=== PATIENT | female | born 1975 | race Caucasian/White ===

== ENCOUNTER 2020-08-18 14:40 | Emergency (ER) | payer OTHER, SELFPAY ==
--- NOTE | 2020-08-18 15:19 | XR_ITS ---
EXAMINATION: XR CHEST CLINICAL INFORMATION: Shortness of breath and cough. COMPARISON: Chest radiograph dated 09/04/2010. TECHNIQUE: Frontal view of the chest was obtained. FINDINGS: No significant abnormality is noted involving the heart, lungs, mediastinum, bony thorax or soft tissues. There is an old, healed posterolateral left seventh rib fracture. IMPRESSION: Unremarkable examination.
[2020-08-18 15:36] VITALS: BP 138/77; PULSE 90; RESP 20; TEMP 36.8; O2SAT 96; BMI 30.4
--- NOTE | 2020-08-18 15:37 | ECG_ITS ---
Test Reason : BACK PAIN Blood Pressure : / mmHG Vent. Rate : 097 BPM Atrial Rate : 097 BPM P-R Int : 168 ms QRS Dur : 074 ms QT Int : 346 ms P-R-T Axes : 049 047 040 degrees QTc Int : 439 ms Normal sinus rhythm Normal ECG When compared with ECG of 04-SEP-2010 18:34, No significant change was found Referred By: Mary Cunningham Electronically Signed By:MELIZA JEFFERS
--- NOTE | 2020-08-18 15:39 | ED.SOB ---
HPI - SOB/Dyspnea General Chief Complaint: Back Pain/Injury <JINA Beltran Last Filed: 08/18/20 18:22> Stated Complaint: COUGH <JINA Beltran Last Filed: 08/18/20 18:22> Time Seen by Provider: 08/18/20 15:18 <JINA Beltran Last Filed: 08/18/20 18:22> Source: patient <JINA Beltran Last Filed: 08/18/20 18:22> Mode of arrival: ambulatory <JINA Beltran Last Filed: 08/18/20 18:22> Limitations: no limitations <JINA Beltran Last Filed: 08/18/20 18:22> History of Present Illness HPI Narrative: 45 y/o female presenting with chest pain, cough, chronic abdominal pain. Recently diagnosed with PNA about 5 weeks ago, completed antibiotics and now has SOB and cough again. She also reports central chest pain that started Friday. It is associated with SOB, anxiety and diaphoresis. It has been constant but waxes and wanes. <JINA Beltran Last Filed: 08/18/20 18:22> Related Data Home Medications: Previous Rx's Medication Instructions Recorded lidocaine [Lidoderm] 1 patch TOPICAL DAILY #1 ea 08/18/20 prednisone 40 mg PO DAILY #10 tab 08/18/20 <JIAN Beltran Last Filed: 08/18/20 18:22> Allergies/Adverse Reactions: Allergies Allergy/AdvReac Type Severity Reaction Status Date / Time ibuprofen [From Motrin] Allergy Unknown HIVES Verified 08/18/20 16:20 tramadol [Tramadol] AdvReac Unknown NAUSEA Verified 08/18/20 16:20 <JINA Beltran Last Filed: 08/18/20 18:22> Review of Systems Review of Systems: Constitutional: No Fever, No Chills ENT/Mouth: No sore throat, No Rhinorrhea, No Swallowing Difficulty Eyes: No Eye Pain, No Swelling, No Redness Cardiovascular: positive Chest Pain & SOB, No Orthopnea, negative Edema Respiratory: No Cough, No Sputum, No Wheezing, positive dyspnea Gastrointestinal: No Nausea, No Vomiting, No Diarrhea, No abdominal Pain, No Hematochezia, No Melena Genitourinary: No Dysuria, No Urinary Frequency, No Hematuria Musculoskeletal: No joint pain, No Myalgias Skin: No Skin Lesions, No rash Neuro: No Weakness, No Numbness, No Dizziness, No Headache Psych: No Anxiety/Panic, No Depression Heme/Lymph: No Bruising, No Lymphadenopathy Endocrine: No Polyuria, No Polydipsia All other 10 point ROS are negative. <JINA Beltran - Last Filed: 08/18/20 18:22> [facility] Past Medical History Attestation statement: The following information was validated with the patient. <JINA Beltran - Last Filed: 08/18/20 18:22> Medical History: Medical History No known health problems <JINA Beltran - Last Filed: 08/18/20 18:22> Social History Social History: Social History Alcohol intake: never Smoking Status: Current every day smoker Smoked in Last 30 Days: Yes Use of substances other than those prescribed or required for medical reasons: No Advance Directives: No Advance Directives Information Provided: No <JINA Beltran - Last Filed: 08/18/20 18:22> Physical Exam Vital Signs and I&O and Narrative: Vital Signs and I&O: Vital Signs Temp 98.2 F 08/18/20 16:00 Pulse 92 08/18/20 18:22 Resp 18 08/18/20 18:22 BP 121/55 L 08/18/20 18:22 Pulse Ox 96 08/18/20 18:22 Intake & Output 08/18/20 08/18/20 08/19/20 06:59 18:59 06:59 Intake Total 1000 / 1000 Balance 1000 / 1000 Weight 85.729 kg Intake: Intake, IV Amoun t 1000 / 1000 0.9 % Sodium C hloride 1,000 ml 1000 / 1000 @ 999 mls/hr I VCONT .Q1H1M [facility] Rx#:[id number] Body Mass Index 30.4 <JINA Beltran - Last Filed: 08/18/20 18:22> Vital Signs and I&O: Vital Signs Temp 98.2 F 08/18/20 16:00 Pulse 92 08/18/20 18:22 Resp 18 08/18/20 18:22 BP 121/55 L 08/18/20 18:22 Pulse Ox 96 08/18/20 18:22 Intake & Output 08/18/20 08/18/20 08/19/20 06:59 18:59 06:59 Intake Total 1000 / 1000 Balance 1000 / 1000 Weight 85.729 kg Intake: Intake, IV Amoun t 1000 / 1000 0.9 % Sodium C hloride 1,000 ml 1000 / 1000 @ 999 mls/hr I VCONT .Q1H1M [facility] Rx#:[id number] Body Mass Index 30.4 <Emil Matthews DO - Last Filed: 08/19/20 02:00> Appearance: Alert. Oriented X3. No acute distress. Eyes: Pupils equal, round and reactive to light. ENT: Pharynx normal. Neck: Normal inspection. Neck supple. CVS: Normal heart rate and rhythm. Pulses normal. Respiratory: No respiratory distress. Coarse breath sounds throughout. Anterior chest wall tenderness Abdomen: Soft and nontender. Skin: Skin warm and dry. Normal skin color. Normal skin turgor. Extremities: No lower extremity edema. No lower extremity edema. Negative Roberta's sign Neuro: Oriented X 3. No motor deficit. No sensory deficit. <JINA Beltran - Last Filed: 08/18/20 18:22> Course Course Hospital Course: 45 y/o active smoker with recent PNA presents with multiple complaints - SOB, cough, chest pain, abd pain. Will r/o PNA, PE. Neb ordered for now. <JINA Beltran - Last Filed: 08/18/20 18:22> Reevaluation(s) Reevaluation #1: EKG normal, troponin negative and DDimer negative. <JINA Beltran - Last Filed: 08/18/20 18:22> Time: 17:17 <JINA Beltran - Last Filed: 08/18/20 18:22> Reevaluation #2: No noted hypoxia or coughing fits while here. She continues to report mild rib pain, likelt costochondritis due to persistent coughing. Will treat with prednisone. stable for d/c. <JINA Beltran - Last Filed: 08/18/20 18:22> Time: 18:21 <JINA Beltran - Last Filed: 08/18/20 18:22> MDM - SOB/Dyspnea Differential Diagnosis Differential diagnosis: Likely acute exacerbation of chronic obstructive airways disease, congestive heart failure, pneumonia, asthma with exacerbation, pulmonary embolism, pleural effusion, sleep apnea and anemia <JINA Beltran - Last Filed: 08/18/20 18:22> Medical Records Attestation: I reviewed the patient's medical records. <JINA Beltran - Last Filed: 08/18/20 18:22> Lab Data Result diagrams: : 08/18/20 16:10 08/18/20 16:10 <JINA Beltran - Last Filed: 08/18/20 18:22> Labs: Lab Results 08/18/20 08/18/20 08/18/20 Range/Units 16:10 16:10 16:10 WBC 11.8 H (4.8-10.8) X10*3/uL RBC 3.49 L (4.20-5.50) X10*6/uL Hgb 9.4 L (12.0-16.0) g/dl Hct 30.7 L (37-47) % MCV 88.0 (80-98) fL MCH 26.9 L (27.0-33.0) pg MCHC 30.6 L (31.0-35.0) g/dl RDW 17.1 H (11.0-16.0) % Plt Count 293 (160-400) X10*3/uL MPV 9.9 (9.4-12.3) fL Immature Gran % (Auto) 0.3 (0.0-0.4) % Neut % (Auto) 64.5 (45-73) % Lymph % (Auto) 23.7 (20-40) % [place] % (Auto) 8.5 (2-11) % Eos % (Auto) 2.7 (0-4) % Baso % (Auto) 0.3 (0-2) % Neut # (Auto) 7.6 (2.0-8.3) X10*3/uL Lymph # (Auto) 2.8 (1.2-4.9) X10*3/uL [place] # (Auto) 1.0 (0.1-1.2) X10*3/uL Eos # (Auto) 0.3 (0.0-0.4) X10*3/uL Baso # (Auto) 0.0 (0.0-0.2) X10*3/uL Abs Immat Gran (auto) 0.04 H (0.00-0.03) X10*3/uL Absolute Nucleated RBC 0.000 (0.0-0.012) X10*3/uL Nucleated RBC % (auto) 0.0 (0.0-0.2) /100WBC D-Dimer NG/ML Sodium 142 (135-145) mmol/L Potassium 5.0 (3.3-5.1) mmol/l Chloride 110 H (96-108) mmol/L Carbon Dioxide 23 (22-29) mmol/L Anion Gap 14 (12-20) BUN 17 H (9-16) mg/dL Creatinine 0.70 (0.5-1.4) mg/dL Estim Creat Clear Calc 114.2 Estimated GFR > 60 Random Glucose 91 (60-115) mg/dL Calcium 8.2 L (8.4-10.2) mg/dL Total Bilirubin (0.0-1.0) mg/dL Direct Bilirubin (0.0-0.5) mg/dL AST (5-31) U/L ALT (0-31) U/L Alkaline Phosphatase (39-117) U/L Troponin I High Sens < 3.5 (<3.5-17.0) ng/L B-Natriuretic Peptide 71 (<100) pg/mL Total Protein (6.5-8.0) g/dL Albumin (3.5-5.0) g/dL Lipase (8-78) U/L Procalcitonin ng/mL 08/18/20 08/18/20 08/18/20 Range/Units 16:10 16:10 16:41 WBC (4.8-10.8) X10*3/uL RBC (4.20-5.50) X10*6/uL Hgb (12.0-16.0) g/dl Hct (37-47) % MCV (80-98) fL MCH (27.0-33.0) pg MCHC (31.0-35.0) g/dl RDW (11.0-16.0) % Plt Count (160-400) X10*3/uL MPV (9.4-12.3) fL Immature Gran % (Auto) (0.0-0.4) % Neut % (Auto) (45-73) % Lymph % (Auto) (20-40) % [place] % (Auto) (2-11) % Eos % (Auto) (0-4) % Baso % (Auto) (0-2) % Neut # (Auto) (2.0-8.3) X10*3/uL Lymph # (Auto) (1.2-4.9) X10*3/uL [place] # (Auto) (0.1-1.2) X10*3/uL Eos # (Auto) (0.0-0.4) X10*3/uL Baso # (Auto) (0.0-0.2) X10*3/uL Abs Immat Gran (auto) (0.00-0.03) X10*3/uL Absolute Nucleated RBC (0.0-0.012) X10*3/uL Nucleated RBC % (auto) (0.0-0.2) /100WBC D-Dimer 202 NG/ML Sodium (135-145) mmol/L Potassium (3.3-5.1) mmol/l Chloride (96-108) mmol/L Carbon Dioxide (22-29) mmol/L Anion Gap (12-20) BUN (9-16) mg/dL Creatinine (0.5-1.4) mg/dL Estim Creat Clear Calc Estimated GFR Random Glucose (60-115) mg/dL Calcium (8.4-10.2) mg/dL Total Bilirubin < 0.2 (0.0-1.0) mg/dL Direct Bilirubin < 0.2 (0.0-0.5) mg/dL AST 18 (5-31) U/L ALT 9 (0-31) U/L Alkaline Phosphatase 50 (39-117) U/L Troponin I High Sens (<3.5-17.0) ng/L B-Natriuretic Peptide (<100) pg/mL Total Protein 6.6 (6.5-8.0) g/dL Albumin 3.8 (3.5-5.0) g/dL Lipase 18 (8-78) U/L Procalcitonin 0.16 ng/mL <JINA Beltran - Last Filed: 08/18/20 18:22> Lab Results 08/18/20 08/18/20 08/18/20 Range/Units 16:10 16:10 16:10 WBC 11.8 H (4.8-10.8) X10*3/uL RBC 3.49 L (4.20-5.50) X10*6/uL Hgb 9.4 L (12.0-16.0) g/dl Hct 30.7 L (37-47) % MCV 88.0 (80-98) fL MCH 26.9 L (27.0-33.0) pg MCHC 30.6 L (31.0-35.0) g/dl RDW 17.1 H (11.0-16.0) % Plt Count 293 (160-400) X10*3/uL MPV 9.9 (9.4-12.3) fL Immature Gran % (Auto) 0.3 (0.0-0.4) % Neut % (Auto) 64.5 (45-73) % Lymph % (Auto) 23.7 (20-40) % [place] % (Auto) 8.5 (2-11) % Eos % (Auto) 2.7 (0-4) % Baso % (Auto) 0.3 (0-2) % Neut # (Auto) 7.6 (2.0-8.3) X10*3/uL Lymph # (Auto) 2.8 (1.2-4.9) X10*3/uL [place] # (Auto) 1.0 (0.1-1.2) X10*3/uL Eos # (Auto) 0.3 (0.0-0.4) X10*3/uL Baso # (Auto) 0.0 (0.0-0.2) X10*3/uL Abs Immat Gran (auto) 0.04 H (0.00-0.03) X10*3/uL Absolute Nucleated RBC 0.000 (0.0-0.012) X10*3/uL Nucleated RBC % (auto) 0.0 (0.0-0.2) /100WBC D-Dimer NG/ML Sodium 142 (135-145) mmol/L Potassium 5.0 (3.3-5.1) mmol/l Chloride 110 H (96-108) mmol/L Carbon Dioxide 23 (22-29) mmol/L Anion Gap 14 (12-20) BUN 17 H (9-16) mg/dL Creatinine 0.70 (0.5-1.4) mg/dL Estim Creat Clear Calc 114.2 Estimated GFR > 60 Random Glucose 91 (60-115) mg/dL Calcium 8.2 L (8.4-10.2) mg/dL Total Bilirubin (0.0-1.0) mg/dL Direct Bilirubin (0.0-0.5) mg/dL AST (5-31) U/L ALT (0-31) U/L Alkaline Phosphatase (39-117) U/L Troponin I High Sens < 3.5 (<3.5-17.0) ng/L B-Natriuretic Peptide 71 (<100) pg/mL Total Protein (6.5-8.0) g/dL Albumin (3.5-5.0) g/dL Lipase (8-78) U/L Procalcitonin ng/mL 08/18/20 08/18/20 08/18/20 Range/Units 16:10 16:10 16:41 WBC (4.8-10.8) X10*3/uL RBC (4.20-5.50) X10*6/uL Hgb (12.0-16.0) g/dl Hct (37-47) % MCV (80-98) fL MCH (27.0-33.0) pg MCHC (31.0-35.0) g/dl RDW (11.0-16.0) % Plt Count (160-400) X10*3/uL MPV (9.4-12.3) fL Immature Gran % (Auto) (0.0-0.4) % Neut % (Auto) (45-73) % Lymph % (Auto) (20-40) % [place] % (Auto) (2-11) % Eos % (Auto) (0-4) % Baso % (Auto) (0-2) % Neut # (Auto) (2.0-8.3) X10*3/uL Lymph # (Auto) (1.2-4.9) X10*3/uL [place] # (Auto) (0.1-1.2) X10*3/uL Eos # (Auto) (0.0-0.4) X10*3/uL Baso # (Auto) (0.0-0.2) X10*3/uL Abs Immat Gran (auto) (0.00-0.03) X10*3/uL Absolute Nucleated RBC (0.0-0.012) X10*3/uL Nucleated RBC % (auto) (0.0-0.2) /100WBC D-Dimer 202 NG/ML Sodium (135-145) mmol/L Potassium (3.3-5.1) mmol/l Chloride (96-108) mmol/L Carbon Dioxide (22-29) mmol/L Anion Gap (12-20) BUN (9-16) mg/dL Creatinine (0.5-1.4) mg/dL Estim Creat Clear Calc Estimated GFR Random Glucose (60-115) mg/dL Calcium (8.4-10.2) mg/dL Total Bilirubin < 0.2 (0.0-1.0) mg/dL Direct Bilirubin < 0.2 (0.0-0.5) mg/dL AST 18 (5-31) U/L ALT 9 (0-31) U/L Alkaline Phosphatase 50 (39-117) U/L Troponin I High Sens (<3.5-17.0) ng/L B-Natriuretic Peptide (<100) pg/mL Total Protein 6.6 (6.5-8.0) g/dL Albumin 3.8 (3.5-5.0) g/dL Lipase 18 (8-78) U/L Procalcitonin 0.16 ng/mL <Emil Matthews DO - Last Filed: 08/19/20 02:00> ECG Data Attestation: I personally reviewed and interpreted this ECG as follows: <JINA Beltran - Last Filed: 08/18/20 18:22> ECG interpretation date: 08/18/20 <JINA Beltran - Last Filed: 08/18/20 18:22> Interpretation: normal sinus rhythm, HR 97, normal QTc, normal axis <JINA Beltran - Last Filed: 08/18/20 18:22> Discharge Plan Discharge Clinical Impression: Acute costochondritis <JINA Beltran - Last Filed: 08/18/20 18:22> Patient Disposition: Home, Self-Care <JINA Beltran - Last Filed: 08/18/20 18:22> Instructions: Costochondritis (ED) <JINA Beltran - Last Filed: 08/18/20 18:22> Additional Instructions: Follow up with your Primary Care Doctor. If your symptoms worsen, come back to the ER for further evaluation. <JINA Beltran - Last Filed: 08/18/20 18:22> Prescriptions: New prednisone 20 mg tablet 40 mg PO DAILY Qty: 10 RF: 0 lidocaine [Lidoderm] 5 % adhesive patch,medicated 1 patch topical DAILY Qty: 1 RF: 0 <JINA Beltran - Last Filed: 08/18/20 18:22> Interventions: ED Discharge Assessment Last Done: 08/18/20 18:31 <JINA Beltran - Last Filed: 08/18/20 18:22> Discharge Date/Time: 08/18/20 18:36 <JINA Beltran - Last Filed: 08/18/20 18:22>
[2020-08-18 16:00] VITALS: BP 123/64; PULSE 92; RESP 16; TEMP 36.8
[2020-08-18] MEDS: Albuterol/Iprat 2.5/0.5MG 3 ML AMPUL.NEB INHALE (16:04)
[2020-08-18] MEDS: 0.9 % Sodium Chloride 1,000 ML 999 ML IVCONT (16:13)
[2020-08-18 16:17] LABS: MANUAL DIFF FLAG NO
[2020-08-18 16:19] LABS: Basophils Percent Auto 0.3 % (0-2); Eosinophils Absolute Auto 0.3 X10*3/uL (0.0-0.4); Eosinophils Percent Auto 2.7 % (0-4); Hematocrit 30.7 % (37-47); Hemoglobin 9.4 g/dl (12.0-16.0); Imm Gran Abs Auto 0.04 X10*3/uL (0.00-0.03); Imm Gran Pct Auto 0.3 % (0.0-0.4); Lymphocytes Absolute Auto 2.8 X10*3/uL (1.2-4.9); Lymphocytes Percent Auto 23.7 % (20-40); Mean Corpuscular HGB Conc 30.6 g/dl (31.0-35.0); Mean Corpuscular Hemoglobin 26.9 pg (27.0-33.0); Mean Platelet Volume 9.9 fL (9.4-12.3); Monocytes Percent Auto 8.5 % (2-11); Neutrophils Absolute Auto 7.6 X10*3/uL (2.0-8.3); Neutrophils Percent Auto 64.5 % (45-73); Platelet Count 293 X10*3/uL (160-400); Red Blood Count 3.49 X10*6/uL (4.20-5.50); Red Cell Distribution Width 17.1 % (11.0-16.0); White Blood Count 11.8 X10*3/uL (4.8-10.8)
[2020-08-18 16:26] LABS: D Dimer 202 NG/ML
[2020-08-18 16:52] LABS: Anion Gap 14 (12-20); Blood Urea Nitrogen 17 mg/dL (9-16); Calcium 8.2 mg/dL (8.4-10.2); Carbon Dioxide 23 mmol/L (22-29); Chloride 110 mmol/L (96-108); Creatinine Clr Calc Pharmacy 114.2; Estimated Glomerular Filt Rate > 60; Glucose Random 91 mg/dL (60-115); Sodium 142 mmol/L (135-145)
[2020-08-18 16:57] LABS: B Type Natriuretic Peptide 71 pg/mL (<100); Troponin-I High Sensitivity < 3.5 ng/L (<3.5-17.0)
[2020-08-18 17:09] LABS: Alanine Aminotransferase 9 U/L (0-31); Albumin Level 3.8 g/dL (3.5-5.0); Alkaline Phosphatase 50 U/L (39-117); Aspartate Amino Transferase 18 U/L (5-31); Bilirubin Direct < 0.2 mg/dL (0.0-0.5); Bilirubin Total < 0.2 mg/dL (0.0-1.0); Lipase 18 U/L (8-78); Total Protein 6.6 g/dL (6.5-8.0)
[2020-08-18 17:11] LABS: Procalcitonin 0.16 ng/mL
[2020-08-18 18:22] VITALS: BP 121/55; PULSE 92; RESP 18; O2SAT 96
[2020-08-18 18:25] VITALS: PULSE 96
== END 2020-08-18 18:36 | disposition home or self-care (01) ==
PROVIDERS: Physician Assistant; Emergency Provider Emergency Medicine; PCP Internal Medicine
DX: M94.0 Chondrocostal junction syndrome [Tietze] (principal); R05 Cough; F17.200 Nicotine dependence, unspecified, uncomplicated
CPT/HCPCS: 36415; 71045; 80048; 80076; 83690; 83880; 84145; 84484; 85025; 85379; 87635; 93005; 93010; 96360; 99284; 99285

== ENCOUNTER 2020-09-24 17:08 | Emergency (ER) | payer OTHER, SELFPAY ==
[2020-09-24 18:29] VITALS: BP 146/87; PULSE 89; RESP 18; TEMP 36.8; O2SAT 98; BMI 34.9
--- NOTE | 2020-09-24 18:45 | CT_ITS ---
EXAMINATION: CT ABDOMEN AND PELVIS WITH CONTRAST CLINICAL INFORMATION: Diffuse abdominal pain, worse in the epigastrium and left lower quadrant. COMPARISON: None TECHNIQUE: Multidetector volumetric images were obtained from the superior aspect of the liver through the pubic symphysis following administration 85 mL of Omnipaque 350 intravenous contrast. Sagittal and coronal reformatted images were obtained on the technologist's workstation. Oral Contrast: No. This CT examination was performed using dose optimization techniques as appropriate, variously including the following: *Automated exposure control. *Adjustment of mA and/or kV according to patient size (this includes techniques or standardized protocols for targeted exams where dose is matched to indication/reason for exam; i.e. extremities or head). *Use of iterative reconstruction technique. DLP: 651 mGy-cm FINDINGS: LUNG BASES: Mosaic changes are present in the lung bases with some areas of air-trapping. No pleural effusions are seen. The heart size is normal. LIVER, GALLBLADDER, AND BILIARY TREE: The liver is enlarged measuring 19 cm in greatest length and demonstrates decreased attenuation suspicious for hepatic steatosis. No focal liver mass or bile duct dilatation is seen. Status post cholecystectomy with clips in the gallbladder fossa. PANCREAS: Unremarkable. SPLEEN: Unremarkable. ADRENAL GLANDS: Unremarkable. KIDNEYS AND URETERS: The kidneys are normal in size, shape, and attenuation. No hydronephrosis, hydroureter, or calculi seen. No perinephric stranding. BLADDER: Unremarkable. GASTROINTESTINAL TRACT: There is gastric wall thickening present, especially in the antrum, which could be due to underdistention. The possibility of gastritis should be considered. Dense contrast is present in some small bowel loops as well as colon. As oral contrast was not administered for this exam, this may be due to antacid usage. There is apparent thickening of the mucosa involving the terminal ileum raising the question of inflammatory bowel/Crohn's disease. The small and large bowel are otherwise unremarkable. The appendix is not seen but there is no evidence of appendicitis. ABDOMINAL WALL: No significant hernia is appreciated. LYMPH NODES: No retroperitoneal lymphadenopathy. VASCULAR: Unremarkable. PELVIC VISCERA: An anteverted uterus is present. The ovaries are unremarkable. No free intraperitoneal fluid is seen. OSSEOUS STRUCTURES: Degenerative change is present throughout the spine. There is grade 1-2 anterolisthesis of L5 upon S1 with associated bilateral L5 pars interarticularis defects. There is mild anterior wedging of T11. CT/CT abdomen pelvis w con IMPRESSION: 1. Thickening of the gastric mucosa especially in the antrum. Findings could be secondary to gastritis. 2. Thickening of mucosa in terminal ileum without inflammatory change may be due to inflammatory bowel disease. 3. Dense contrast in bowel as described above could be secondary to antacid abuse. 4. Hepatic steatosis.
--- NOTE | 2020-09-24 18:47 | ED.ABDPAIN ---
HPI - Abdominal Pain General Chief Complaint: Abdominal Pain Stated Complaint: abdominal pain Time Seen by Provider: 09/24/20 18:26 Source: patient Mode of arrival: ambulatory Limitations: no limitations History of Present Illness HPI narrative: patient comes to emergency room complaining of abdominal pain. Patient states it has been intermittent for over 6 months now. Patient states for the last 2 months it has been more frequent and more painful. Patient complaining of constant epigastric pain for the last 5 days, states the pain is not related to meals. According to patient, she has been evaluated for abdominal pain in the past with similar episodes. Laying down makes the abdominal pain worse, if she gets into a position the pain is less. Patient reports 2 episodes of vomiting 3 or 4 days ago, no diarrhea. MD elicited complaint: abdominal pain Related Data Previous Rx's Medication Instructions Recorded lidocaine [Lidoderm] 1 patch TOPICAL DAILY #1 ea 08/18/20 prednisone 40 mg PO DAILY #10 tab 08/18/20 sucralfate [Carafate] 1 g PO BID #14 tab 09/24/20 Allergies Allergy/AdvReac Type Severity Reaction Status Date / Time ibuprofen [From Motrin] Allergy Unknown HIVES Verified 08/18/20 16:20 tramadol [Tramadol] AdvReac Unknown NAUSEA Verified 08/18/20 16:20 Review of Systems Review of Systems Constitutional : No Weight loss, No Fever, No Chills, No Night Sweats, No Fatigue, No Malaise ENT/Mouth : No Hearing loss, No Ear Pain, No Nasal Congestion, No Sinus Pain, No Hoarseness, No sore throat, No Rhinorrhea, No Swallowing Difficulty Eyes: No Eye Pain, No Swelling, No Redness, No Foreign Body, No Discharge, No Vision Changes Cardiovascular : No Chest Pain, No SOB, No Dyspnea on Exertion, No Orthopnea, No Edema, No Palpitations Respiratory : No Cough, No Sputum, No Wheezing, No Smoke Exposure, No Dyspnea Gastrointestinal : Patient complaining of vomiting, no diarrhea, complaining of epigastric pain mostly but the pain is diffuse. Also complaining of suprapubic pain with no UTI symptoms Genitourinary : no irregular bleeding, No Dysuria, No Urinary Frequency, No Hematuria, No Urinary Incontinence, No Urgency, No Flank Pain, No Urinary Flow Changes, No Hesitancy Musculoskeletal : No joint pain, No Myalgias, No Joint Swelling Skin : No Skin Lesions, No rash Neuro : No Weakness, No Numbness, No Paresthesias, No Loss of Consciousness, No Dizziness, No Headache Psych : No Anxiety/Panic, No Depression, No SI/HI/AH/VH, No Social Issues, Heme/Lymph: No Bruising, No Bleeding,No Lymphadenopathy Endocrine : No Polyuria, No Polydipsia, No Temperature Intolerance Physical Exam Vital Signs: Vital Signs: Last Vital Signs Temp 99.9 F 09/24/20 19:30 Pulse 97 09/24/20 19:30 Resp 17 09/24/20 19:30 BP 127/71 09/24/20 19:30 Pulse Ox 95 09/24/20 19:30 Body Mass Index 34.9 Appearance: Alert. Oriented X3. No acute distress. patient is sitting in a position driving a pillow around her stomach to help the pain Eyes: Pupils equal, round and reactive to light. ENT: Pharynx normal. Neck: Normal inspection. Neck supple. No lymph nodes noted. No crepitus CVS: Normal heart rate and rhythm. Pulses normal. Normal S1 and S2 Respiratory: No respiratory distress. Breath sounds normal. No Wheezing. No rales Abdomen: Soft diffusely tender, with guarding Skin: Skin warm and dry. Normal skin color. Normal skin turgor. Extremities: No lower extremity edema. No lower extremity edema. No Lacerations. No Rash Neuro: Oriented X 3. No motor deficit. No sensory deficit. Moving all extermities. No slurred speech. Course Course Course Narrative: I discussed the labs and imaging with the patient, patient likely having gastritis. Patient instructed follow-up with her primary care physician. Also patient made aware that her hemoglobin is 9.7, patient will follow-up with her primary care physician. MDM - Abdominal Pain MDM Narrative Medical decision making narrative: I discussed the labs imaging with the patient, she was instructed to call her manager appointment to let her know that she will be on Carafate, it may interfere with the hip that is coming up in approximately 10 days. Differential Diagnosis Differential diagnosis: Likely abdominal pain Differential diagnosis narrative:: Gastritis, peptic ulcer disease Lab Data Result diagrams: 09/24/20 19:13 09/24/20 19:13 Labs: Lab Results 09/24/20 09/24/20 09/24/20 Range/Units 19:13 19:13 19:13 WBC 8.3 (4.8-10.8) X10*3/uL RBC 3.70 L (4.20-5.50) X10*6/uL Hgb 9.7 L (12.0-16.0) g/dl Hct 31.6 L (37-47) % MCV 85.4 (80-98) fL MCH 26.2 L (27.0-33.0) pg MCHC 30.7 L (31.0-35.0) g/dl RDW 18.6 H (11.0-16.0) % Plt Count 417 H D (160-400) X10*3/uL MPV 9.5 (9.4-12.3) fL Immature Gran % (Auto) 0.4 (0.0-0.4) % Neut % (Auto) 63.9 (45-73) % Lymph % (Auto) 24.0 (20-40) % [place] % (Auto) 9.1 (2-11) % Eos % (Auto) 1.6 (0-4) % Baso % (Auto) 1.0 (0-2) % Lymph # (Auto) 2.0 (1.2-4.9) X10*3/uL [place] # (Auto) 0.8 (0.1-1.2) X10*3/uL Eos # (Auto) 0.1 (0.0-0.4) X10*3/uL Baso # (Auto) 0.1 (0.0-0.2) X10*3/uL Abs Immat Gran (auto) 0.03 (0.00-0.03) X10*3/uL Absolute Neuts (auto) 5.3 (2.0-8.3) X10*3/uL Absolute Nucleated RBC 0.000 (0.0-0.012) X10*3/uL Nucleated RBC % (auto) 0.0 (0.0-0.2) /100WBC Sodium 138 (135-145) mmol/L Potassium 3.8 D (3.3-5.1) mmol/l Chloride 109 H (96-108) mmol/L Carbon Dioxide 18 L (22-29) mmol/L Anion Gap 15 (12-20) BUN 10 (9-16) mg/dL Creatinine 0.72 (0.5-1.4) mg/dL Estim Creat Clear Calc 98.9 Estimated GFR > 60 Random Glucose 81 (60-115) mg/dL Calcium 7.8 L (8.4-10.2) mg/dL Total Bilirubin < 0.2 (0.0-1.0) mg/dL Direct Bilirubin < 0.2 (0.0-0.5) mg/dL AST 56 H (5-31) U/L ALT 30 (0-31) U/L Alkaline Phosphatase 61 D (39-117) U/L Total Protein 6.5 (6.5-8.0) g/dL Albumin 3.6 (3.5-5.0) g/dL Lipase 22 (8-78) U/L Urine Color YELLOW Urine Appearance CLEAR Urine pH 5.5 (5.0-8.0) Ur Specific [place] 1.025 (1.005-1.025) Urine Protein TRACE (NEG-TRACE) MG/DL Urine Glucose (UA) NEG (NEG) MG/DL Urine Ketones 15 (NEG) MG/DL Urine Blood TRACE (NEG) Urine Nitrite NEG (NEG) Ur Leukocyte Esterase NEG (NEG) Urine RBC 0-2 (0) /HPF Urine WBC 0 (0-4) /HPF Ur Squamous Epith Cells 1+ /LPF Urine Bacteria 1+ /LPF Imaging Data CT scan - abdomen: Radiologist's impression: LUNG BASES: Mosaic changes are present in the lung bases with some areas of air-trapping. No pleural effusions are seen. The heart size is normal. LIVER, GALLBLADDER, AND BILIARY TREE: The liver is enlarged measuring 19 cm in greatest length and demonstrates decreased attenuation suspicious for hepatic steatosis. No focal liver mass or bile duct dilatation is seen. Status post cholecystectomy with clips in the gallbladder fossa. PANCREAS: Unremarkable. SPLEEN: Unremarkable. ADRENAL GLANDS: Unremarkable. KIDNEYS AND URETERS: The kidneys are normal in size, shape, and attenuation. No hydronephrosis, hydroureter, or calculi seen. No perinephric stranding. BLADDER: Unremarkable. GASTROINTESTINAL TRACT: There is gastric wall thickening present, especially in the antrum, which could be due to underdistention. The possibility of gastritis should be considered. Dense contrast is present in some small bowel loops as well as colon. As oral contrast was not administered for this exam, this may be due to antacid usage. There is apparent thickening of the mucosa involving the terminal ileum raising the question of inflammatory bowel/Crohn's disease. The small and large bowel are otherwise unremarkable. The appendix is not seen but there is no evidence of appendicitis. ABDOMINAL WALL: No significant hernia is appreciated. LYMPH NODES: No retroperitoneal lymphadenopathy. VASCULAR: Unremarkable. PELVIC VISCERA: An anteverted uterus is present. The ovaries are unremarkable. No free intraperitoneal fluid is seen. OSSEOUS STRUCTURES: Degenerative change is present throughout the spine. There is grade 1-2 anterolisthesis of L5 upon S1 with associated bilateral L5 pars interarticularis defects. There is mild anterior wedging of T11. CT/CT abdomen pelvis w con IMPRESSION: 1. Thickening of the gastric mucosa especially in the antrum. Findings could be secondary to gastritis. 2. Thickening of mucosa in terminal ileum without inflammatory change may be due to inflammatory bowel disease. 3. Dense contrast in bowel as described above could be secondary to antacid abuse. 4. Hepatic steatosis. Discharge Plan Discharge Clinical Impression: Gastritis Qualifiers: Gastritis type: unspecified gastritis Chronicity: unspecified Gastritis bleeding: without bleeding Qualified Code(s): K29.70 - Gastritis, unspecified, without bleeding Patient Disposition: Home, Self-Care Instructions: Gastritis (ED) Prescriptions: New sucralfate [Carafate] 1 gram tablet 1 g PO BID Qty: 14 RF: 0 No Action prednisone 20 mg tablet 40 mg PO DAILY Qty: 10 RF: 0 lidocaine [Lidoderm] 5 % adhesive patch,medicated 1 patch topical DAILY Qty: 1 RF: 0 PMFSH Past Medical History Medical History (Updated 09/24/20 @ 21:28 by Erlinda Polo MD) FH: cholecystectomy Shelia-Gee tear No known health problems Social History Social History Alcohol intake: never Smoking Status: Current every day smoker Use of substances other than those prescribed or required for medical reasons: No Advance Directives: No Advance Directives Information Provided: Yes
[2020-09-24 19:18] LABS: MANUAL DIFF FLAG NO
[2020-09-24 19:19] VITALS: RESP 16
[2020-09-24] MEDS: Morphine Sulfate 4 MG/ML CARTRIDGE IVPUSH (19:19)
[2020-09-24 19:20] LABS: Basophils Absolute Auto 0.1 X10*3/uL (0.0-0.2); Eosinophils Absolute Auto 0.1 X10*3/uL (0.0-0.4); Eosinophils Percent Auto 1.6 % (0-4); Glucose Urine UA NEG (NEG); Hematocrit 31.6 % (37-47); Hemoglobin 9.7 g/dl (12.0-16.0); Imm Gran Abs Auto 0.03 X10*3/uL (0.00-0.03); Imm Gran Pct Auto 0.4 % (0.0-0.4); Leukocyte Esterase Urine NEG (NEG); Mean Corpuscular HGB Conc 30.7 g/dl (31.0-35.0); Mean Corpuscular Hemoglobin 26.2 pg (27.0-33.0); Mean Corpuscular Volume 85.4 fL (80-98); Mean Platelet Volume 9.5 fL (9.4-12.3); Monocytes Absolute Auto 0.8 X10*3/uL (0.1-1.2); Monocytes Percent Auto 9.1 % (2-11); Neutrophils Absolute Auto 5.3 X10*3/uL (2.0-8.3); Neutrophils Percent Auto 63.9 % (45-73); Nitrite Urine NEG (NEG); PH 5.5 (5.0-8.0); Platelet Count 417 X10*3/uL (160-400); Red Cell Distribution Width 18.6 % (11.0-16.0); Specific Gravity - Urine 1.025 (1.005-1.025); Urine Blood TRACE (NEG); Urine Ketones 15 MG/DL (NEG); Urine Protein TRACE MG/DL (NEG-TRACE); White Blood Count 8.3 X10*3/uL (4.8-10.8)
[2020-09-24 19:22] LABS: Appearance Urine CLEAR; Color Urine YELLOW
[2020-09-24 19:27] LABS: RBC Urine 0-2 /HPF (0); Squamous Epithelial Cell Urine 1+ /LPF; WBC Urine 0 /HPF (0-4)
[2020-09-24 19:28] LABS: Bacteria Urine 1+ /LPF
[2020-09-24 19:30] VITALS: BP 127/71; PULSE 97; RESP 17; TEMP 37.7; O2SAT 95
[2020-09-24 19:52] LABS: Alanine Aminotransferase 30 U/L (0-31); Albumin Level 3.6 g/dL (3.5-5.0); Alkaline Phosphatase 61 U/L (39-117); Anion Gap 15 (12-20); Aspartate Amino Transferase 56 U/L (5-31); Bilirubin Direct < 0.2 mg/dL (0.0-0.5); Bilirubin Total < 0.2 mg/dL (0.0-1.0); Blood Urea Nitrogen 10 mg/dL (9-16); Calcium 7.8 mg/dL (8.4-10.2); Carbon Dioxide 18 mmol/L (22-29); Chloride 109 mmol/L (96-108); Creatinine Clr Calc Pharmacy 98.9; Estimated Glomerular Filt Rate > 60; Glucose Random 81 mg/dL (60-115); Lipase 22 U/L (8-78); Potassium 3.8 mmol/l (3.3-5.1); Sodium 138 mmol/L (135-145); Total Protein 6.5 g/dL (6.5-8.0)
[2020-09-24] MEDS: iohexoL 350 MG/ML 100 ML INFUS..BTL IV (20:18)
[2020-09-24 21:24] VITALS: BP 148/65; PULSE 82; RESP 18; TEMP 36.8; O2SAT 99
--- NOTE | 2020-09-24 21:27 | PC.NURSE ---
patient a&ox3, c/o 02/24 abd pain vss, patient awaiting provider discharge papers to go home, provider was in room speaking with patient, will continue to monitor -float rn
== END 2020-09-24 21:37 | disposition home or self-care (01) ==
PROVIDERS: Emergency Provider Emergency Medicine; PCP Internal Medicine
DX: K29.70 Gastritis, unspecified, without bleeding (principal); R10.9 Unspecified abdominal pain; Z79.899 Other long term (current) drug therapy; F17.200 Nicotine dependence, unspecified, uncomplicated; Z71.6 Tobacco abuse counseling
CPT/HCPCS: 36415; 74177; 80048; 80076; 81001; 83690; 85025; 96374; 99284; J2270; Q9967

== ENCOUNTER 2020-10-30 22:28 | Emergency (ER) | payer OTHER, SELFPAY ==
[2020-10-30 22:31] VITALS: BP 162/92; BP 185/79; PULSE 81; PULSE 90; RESP 26; TEMP 36.9; O2SAT 95; O2SAT 98; BMI 31.5
== END 2020-10-30 23:07 | disposition left against medical advice (07) ==
PROVIDERS: Emergency Provider Student in an Organized Health Care Education/Training Program
DX: R10.13 Epigastric pain (principal); Z85.028 Personal history of other malignant neoplasm of stomach
CPT/HCPCS: 99282; 99283

== ENCOUNTER 2024-03-17 01:27 | Inpatient (IN) | payer OTHER, SELFPAY ==
[2024-03-17] VITALS (24 sets, daily range): BP systolic 156–192; BP diastolic 81–129; PULSE 75–131; RESP 16–36; TEMP 36.5–37.2; O2SAT 92–99; BMI 28.8
--- NOTE | ~2024-03-17 | CT_ITS ---
EXAMINATION: CT ABDOMEN AND PELVIS WITH CONTRAST CLINICAL INFORMATION: Reason for Exam epigastric pain, distension H/O stomach CA/resecti COMPARISON: 09/24/2020 TECHNIQUE: Multidetector volumetric images were obtained from the superior aspect of the liver through the pubic symphysis following administration 85 mL of Omnipaque 350 intravenous contrast. Sagittal and coronal reformatted images were obtained on the technologist's workstation. Oral contrast: No This CT examination was performed using dose optimization techniques as appropriate, variously including the following: *Automated exposure control *Adjustment of mA and/or kV according to patient size (this includes techniques or standardized protocols for targeted exams where dose is matched to indication/reason for exam; i.e. extremities or head) *Use of iterative reconstruction technique DLP: 495 mGy-cm FINDINGS: LUNG BASES: The visualized lung bases are unremarkable. LIVER, GALLBLADDER, AND BILIARY TREE: The liver is enlarged measuring approximately 21 cm in length and demonstrates hypoattenuation consistent with steatosis. No focal hepatic lesion or biliary ductal dilatation is identified. Patient is status post cholecystectomy. PANCREAS: Moderate peripancreatic stranding and small amount of fluid, suspicious for pancreatitis. No discrete collection identified. SPLEEN: Mildly enlarged, measuring approximately 13.6 cm in length. ADRENAL GLANDS: Unremarkable. KIDNEYS AND URETERS: Bilateral nephrograms are symmetric. No hydronephrosis or obstructing calculus identified. BLADDER: Unremarkable. GASTROINTESTINAL TRACT: Postoperative changes from prior partial gastrectomy and gastrojejunal anastomosis. No evidence of bowel obstruction. Limited evaluation for wall thickening within segments of the colon due to luminal collapse. No free fluid or free air is seen. ABDOMINAL WALL: Periumbilical ventral hernia containing loops of nondilated small bowel. LYMPH NODES: Normal. VASCULAR: Unremarkable. PELVIC VISCERA: Unremarkable for patient age. OSSEOUS STRUCTURES: Bilateral L5 pars defects with grade 2 anterolisthesis of L5 on S1. CT/CT abdomen pelvis w IV con IMPRESSION: 1. Moderate peripancreatic stranding and small amount of fluid, suspicious for pancreatitis. 2. Postoperative changes from prior partial gastrectomy and gastrojejunal anastomosis. No evidence of bowel obstruction. 3. Periumbilical ventral hernia containing loops of nondilated small bowel. 4. Hepatomegaly with steatosis. 5. Mild splenomegaly.
[2024-03-17 03:42] LABS: Basophils Percent Auto 0.3 % (0-2); Eosinophils Absolute Auto 0.1 X10*3/uL (0.0-0.4); Eosinophils Percent Auto 1.1 % (0-4); Hematocrit 36.7 % (37.0-47.0); Hemoglobin 10.9 g/dl (12.0-16.0); Imm Gran Abs Auto 0.04 X10*3/uL (0.00-0.03); Imm Gran Pct Auto 0.3 % (0.0-0.4); Lymphocytes Absolute Auto 1.3 X10*3/uL (1.2-4.9); Lymphocytes Percent Auto 11.1 % (20-40); MANUAL DIFF FLAG NO; Mean Corpuscular HGB Conc 29.7 g/dl (31.0-35.0); Mean Corpuscular Hemoglobin 22.5 pg (27.0-33.0); Mean Corpuscular Volume 75.8 fL (80.0-98.0); Mean Platelet Volume 10.2 fL (9.4-12.3); Monocytes Absolute Auto 0.9 X10*3/uL (0.1-1.2); Monocytes Percent Auto 8.2 % (2-11); Platelet Count 244 X10*3/uL (160-400); Red Blood Count 4.84 X10*6/uL (4.20-5.50); Red Cell Distribution Width 22.4 % (11.0-16.0); White Blood Count 11.4 X10*3/uL (4.8-10.8)
--- NOTE | 2024-03-17 03:50 | ED_ITS ---
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 Patient states the pain is been severe since yesterday morning. She describes the pain as a knife-like pain that his slicing into her stomach and she feels like her stomach is bursting open. She states the pain is greater than 10/10. Patient appears to be extremely uncomfortable, she is moaning and rocking on the stretcher. She denied fever or chills. She states she has had nausea but no vomiting. She states she feels bloated but she has been bloated ever since she had her stomach gastrectomy. Patient states she has chronic pain since her gastrectomy and is on Suboxone. Patient did have a history of alcohol use disorder and had sobriety for 4 years but started drinking again 1 year prior. Patient states that she did drink 6 fireball shots prior to onset of her pain. Related Data Allergies Allergy/AdvReac Type Severity Reaction Status Date / Time ibuprofen [From Motrin] Allergy Unknown HIVES Verified 03/17/24 01:35 tramadol [Tramadol] AdvReac Unknown NAUSEA Verified 03/17/24 01:35 Review of Systems Review of Systems Yes Unobtainable due to mental condition (Patient is in significant distress and can not answer questions) [facility] Past Medical History [facility] Narrative: Social history: She is and she is here with her . Patient does smoke cigarettes. Patient has a history of alcohol use disorder had 4 years of sobriety and began drinking 1 year prior. She drinks alcohol 3 times a week, she states that she last drank 2-3 days ago and drink at least 6 fireball whiskey use. Patient does have chronic pain in his on Suboxone for chronic pain after her partial gastrectomy. Medical History (Updated 03/17/24 @ 07:06 by Sameer Ngo MD) 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 Shelia-Gee tear FH: cholecystectomy Surgical History (Updated 10/30/20 @ 22:35 by Naomy Dobbins RN) History of biopsy Social History Social History Alcohol intake: current Alcohol intake frequency: holidays/special occasions only Smoked in Last 30 Days: Yes Use of substances other than those prescribed or required for medical reasons: No Advance Directives: No Advance Directives Information Provided: No Patient : No Physical Exam ED Vital Signs: Vital Signs - 24 hr 03/17/24 01:35 03/17/24 03:40 03/17/24 06:11 Temperature 97.7 F 98.5 F 98.6 F Pulse Rate 108 H 75 87 Respiratory Rate 22 H 22 H 22 H Blood Pressure 172/109 H 175/109 H 156/129 H Pulse Oximetry 99 92 96 Oxygen Delivery Method Room Air Room Air Room Air 03/17/24 06:13 03/17/24 07:17 03/17/24 07:25 Temperature 98.9 F Pulse Rate 131 H Respiratory Rate 22 H 18 18 Blood Pressure 186/104 H Pulse Oximetry 96 Oxygen Delivery Method Room Air 03/17/24 08:03 Temperature Pulse Rate 86 Respiratory Rate 22 H Blood Pressure 188/94 H Pulse Oximetry 99 Oxygen Delivery Method BMI result Body Mass Index 28.8 Patient had elevated heart rate 108, respiratory rate 22 and blood pressure 172/109-most likely secondary to her pain Exam: General: Awake, appears to be in significant distress secondary to her pain, she is rocking back and forth and moaning Head: Normocephalic, atraumatic EENT: PERRL, Lids normal, sclera normal, conjunctiva normal, nose normal , ears normal, throat without erythema or exudates Neck: Supple, no adenopathy Lung: breath sounds symmetric, no wheezing, rales or rhonchi Chest: symmetric movement, nontender Heart: regular rate and rhythm, normal S1, S2 no murmurs or rubs Abdomen: Patient's abdomen appears to be distended, she has diminished bowel sounds, she has severe tenderness palpation of her epigastric area with voluntary guarding Neuro: Awake, alert, oriented, normal speech, Medical Decision Making Medical Decision Making MDM Narrative: 49-year-old female with a history of metastatic stomach cancer status post partial gastrectomy, Shelia-Gee tear, cholecystectomy who presents emergency department for evaluation of abdominal pain which began on Friday03/15/2024 at noon, (2 days prior). Patient's pain is severe, and has been constant since onset, she appears to be visibly uncomfortable, she is moaning and rocking on the stretcher. Vital signs revealed elevated blood pressure, heart rate and respiratory rate most likely secondary to her pain. The patient's abdomen is distended and she has severe epigastric tenderness. Differential diagnosis: ?Includes but is not limited to perforation, bowel obstruction, pancreatitis, viral infection, anemia, electrolyte abnormalities Following evaluation was ordered: CBC, BMP, liver panel, lipase, quantitative beta-hCG, urinalysis, CT scan of the abdomen pelvis with IV contrast Patient was initially treated with the following: Dilaudid 1 mg IV, Reglan 10 mg IV, Benadryl 50 mg IV, normal saline x1 L Course: 04:12 My interpretation the patient's laboratory evaluation as follows: CBC was normal. CMP revealed an elevated AST and ALT of 69 and 35. Lipase was significantly elevated at 374. 06:50 CT scan is consistent with acute pancreatitis. Patient required a 2nd dose of Dilaudid 1 mg IV with only minimal improvement of her pain. The patient is on Suboxone and this may be blocking her Mu opiate receptive which is making it difficult to control her pain therefore I ordered Dilaudid 2 mg IV. I also ordered lactated Ringer's as a 2nd L of fluid. I did discuss over tiger text the patient's presentation and findings and the patient will be admitted hospitalist, Dr. Mckenzie the patient was admitted for further management. 07:32 I also discuss the patient's presentation with the hospitalist, Dr. Sylvester and he will admit the patient for further management. 20:11 Patient got no relief with the above medications. She was ordered to get fentanyl 50 mcg IV. Admission/Observation Consideration of admission/observation: Escalation of care including admission/observation considered Consult Healthcare Provider Management of the patient was discussed with: Hospitalist Lab Data [facility] Lab Attestation statement: I reviewed the patient's lab results. 03/17/24 03:37 03/17/24 03:37 Labs: Lab Results 03/17/24 Range/Units 03:37 WBC 11.4 H (4.8-10.8) X10*3/uL RBC 4.84 (4.20-5.50) X10*6/uL Hgb 10.9 L (12.0-16.0) g/dl Hct 36.7 L (37.0-47.0) % MCV 75.8 L (80.0-98.0) fL MCH 22.5 L (27.0-33.0) pg MCHC 29.7 L (31.0-35.0) g/dl RDW 22.4 H (11.0-16.0) % Plt Count 244 (160-400) X10*3/uL MPV 10.2 (9.4-12.3) fL Immature Gran % (Auto) 0.3 (0.0-0.4) % Neut % (Auto) 79.0 H (45-73) % Lymph % (Auto) 11.1 L (20-40) % [place] % (Auto) 8.2 (2-11) % Eos % (Auto) 1.1 (0-4) % Baso % (Auto) 0.3 (0-2) % Lymph # (Auto) 1.3 (1.2-4.9) X10*3/uL [place] # (Auto) 0.9 (0.1-1.2) X10*3/uL Eos # (Auto) 0.1 (0.0-0.4) X10*3/uL Baso # (Auto) 0.0 (0.0-0.2) X10*3/uL Abs Immat Gran (auto) 0.04 H (0.00-0.03) X10*3/uL Absolute Neuts (auto) 9.0 H (2.0-8.3) x10*3/uL Absolute Nucleated RBC 0.000 (0.0-0.012) X10*3/uL Nucleated RBC % (auto) 0.0 (0.0-0.2) /100WBC Sodium 137 (135-145) mmol/L Potassium 3.9 (3.3-5.1) mmol/L Chloride 104 (96-108) mmol/L Carbon Dioxide 23 (22-29) mmol/L Anion Gap 14 (12-20) BUN 8 L (9-16) mg/dL Creatinine 0.63 (0.5-1.4) mg/dL Estim Creat Clear Calc 98.1 Estimated GFR > 60 Random Glucose 102 (60-115) mg/dL Calcium 9.1 D (8.4-10.2) mg/dL Total Bilirubin 0.3 (0.0-1.0) mg/dL Direct Bilirubin 0.2 (0.0-0.5) mg/dL AST 69 H (5-31) U/L ALT 35 H (0-31) U/L Alkaline Phosphatase 103 (39-117) U/L Total Protein 8.3 H (6.5-8.0) g/dL Albumin 4.0 (3.5-5.0) g/dL Lipase 374 H (8-78) U/L Beta HCG, Quant < 2 mIU/mL Radiology Impression Discussion of test interpretation with radiology: I have reviewed the radiologist's reading. Radiologist Impression: CT abdomen pelvis w IV con IMPRESSION: 1. Moderate peripancreatic stranding and small amount of fluid, suspicious for pancreatitis. 2. Postoperative changes from prior partial gastrectomy and gastrojejunal anastomosis. No evidence of bowel obstruction. 3. Periumbilical ventral hernia containing loops of nondilated small bowel. 4. Hepatomegaly with steatosis. 5. Mild splenomegaly. Dictated By: Pedrito Bills MD Independent Historian Clinical information obtained from an independent historian. History obtained from or confirmed by: Spouse External Record Review External record reviewed: Inpatient record Chronic Conditions Patient?s care impacted by: Other (Alcohol use disorder) Medications Administered Discontinued Medications Generic Name Dose Route Start Last Admin Trade Name Freq PRN Reason Stop Dose Admin Diphenhydramine HCl 50 mg 03/17/24 03:55 03/17/24 04:03 Diphenhydramine Hcl 50 Mg/Ml Vial IVPUSH 03/17/24 03:56 50 mg ONCE STA Administration Hydromorphone HCl 1 mg 03/17/24 03:55 03/17/24 04:03 Hydromorphone Hcl 1 Mg/Ml Syringe IVPUSH 03/17/24 03:56 1 mg ONCE STA Administration Protocol Hydromorphone HCl 1 mg 03/17/24 06:00 03/17/24 06:13 Hydromorphone Hcl 1 Mg/Ml Syringe IVPUSH 03/17/24 06:01 1 mg ONCE STA Administration Protocol Hydromorphone HCl 2 mg 03/17/24 07:02 03/17/24 07:17 Hydromorphone Hcl 2 Mg/Ml Vial IVPUSH 03/17/24 07:03 2 mg ONCE ONE Administration Protocol Lactated Ringer's 1,000 mls @ 999 mls/hr 03/17/24 07:00 03/17/24 07:22 Lr IV 03/17/24 08:00 999 mls/hr .Q1H1M AYLEEN Administration Iohexol 85 ml 03/17/24 05:24 03/17/24 05:25 Iohexol 350 Mg/Ml 100 Ml Infus..Btl IV 03/17/24 05:25 85 ml ONCE ONE Administration Metoclopramide HCl 10 mg 03/17/24 03:55 03/17/24 04:04 Metoclopramide Hcl 10 Mg/2 Ml Vial IVPUSH 03/17/24 03:56 10 mg ONCE STA Administration Critical Care Time Critical Care Time Critical Care Time: Yes Total Critical Care Time: 55 Attestation: Critical Care: The patient was critically ill with a high probability of imminent or life threatening deterioration. I spent greater than 30 minutes of discontinuous time evaluating the patient,delivering critical care at the bedside, discussing and evaluating pertinent data with consultants. Critical care time does not include time spent performing separately billable procedures or teaching. Total time spent performing critical care was 55 minutes. Discharge Plan Discharge Clinical Impression: Acute alcoholic pancreatitis Patient Disposition: Admitted As Inpatient Print Language: Slovenian
[2024-03-17] MEDS: HYDROmorphone HCl 1 MG/ML SYRINGE IVPUSH ×4 (04:03→14:49)
[2024-03-17] MEDS: diphenhydrAMINE HCL 50 MG/ML VIAL IVPUSH (04:03)
[2024-03-17] MEDS: Metoclopramide HCl 10 MG/2 ML VIAL IVPUSH (04:04)
[2024-03-17 04:05] LABS: Alanine Aminotransferase 35 U/L (0-31); Alkaline Phosphatase 103 U/L (39-117); Anion Gap 14 (12-20); Aspartate Amino Transferase 69 U/L (5-31); Bilirubin Direct 0.2 mg/dL (0.0-0.5); Bilirubin Total 0.3 mg/dL (0.0-1.0); Blood Urea Nitrogen 8 mg/dL (9-16); Calcium 9.1 mg/dL (8.4-10.2); Carbon Dioxide 23 mmol/L (22-29); Chloride 104 mmol/L (96-108); Creatinine Clr Calc Pharmacy 98.1; Estimated Glomerular Filt Rate > 60; Glucose Random 102 mg/dL (60-115); Potassium 3.9 mmol/L (3.3-5.1); Sodium 137 mmol/L (135-145); Total Protein 8.3 g/dL (6.5-8.0)
[2024-03-17 04:09] LABS: Lipase 374 U/L (8-78)
[2024-03-17 04:18] LABS: HCG Quantitative < 2 mIU/mL
[2024-03-17] MEDS: iohexoL 350 MG/ML 100 ML INFUS..BTL 85 ML IV (05:25)
[2024-03-17] MEDS: HYDROmorphone HCl 2 MG/ML VIAL IVPUSH (07:17)
[2024-03-17] MEDS: Lactated Ringers 1,000 ML 999 ML IV (07:22)
[2024-03-17 08:18] LABS: Appearance Urine Clear; Color Urine Yellow; Glucose Urine UA Negative (Negative); Leukocyte Esterase Urine Negative (Negative); Nitrite Urine Negative (Negative); Specific Gravity - Urine >= 1.030 (1.005-1.025); Urine Blood Negative (Negative); Urine Ketones 40 mg/dL (Negative); Urine Protein Negative (Neg-Trace)
[2024-03-17 08:22] LABS: Amphetamine Screen Urine POSITIVE (Not Detect); Barbiturates, Urine Not Detected (Not Detect); Benzodiazepines Screen Urine Not Detected (Not Detect); Buprenorphine Scr Positive (Not Detect); Cannabinoid Screen Urine Not Detected (Not Detect); Cocaine Screen Urine Not Detected (Not Detect); Fentanyl, urine Not Detected (Not Detect); Methadone Screen, Urine Not Detected (Not Detect); Opiate Screen Urine POSITIVE (Not Detect); Oxycodone Screen Urine Not Detected (Not Detect); Phencyclidine Screen Urine Not Detected (Not Detect)
--- NOTE | 2024-03-17 08:45 | PHA.MEDREC ---
Pharmacy Consult ? Medication Reconciliation Pharmacy has completed the medication reconciliation. Patient was in a lot of pain but was able to verbalize to the best of her ability as to what medications she was on.
[2024-03-17] MEDS: fentaNYL citrate/PF 100 MCG/2 ML VIAL 50 MCG IVPUSH (08:52)
[2024-03-17 09:49] LABS: Lactic Acid 1.1 mmol/L (0.5-2.0)
--- NOTE | 2024-03-17 09:55 | P.CONGS_ITS ---
History of Present Illness Consult details Consult date: 03/17/24 Reason for consult: abdominal pain Requesting physician: Morenita Sylvester Narrative: 49-year-old female patient presenting to the emergency department with complaints of epigastric abdominal pain radiating to the left upper quadrant and back. She has a past medical history of ETOH abuse, metastatic gastric carcinoma, Shelia-Gee tear and previously underwent partial gastrectomy for the gastric cancer. She had a port placed in preparation of adjuvant chemotherapy however patient never followed through because of COVID-19. She presents today with severe abdominal pain, 10/10 in severity. She does have chronic pain following gastrectomy and was being treated with Suboxone. Patient reports drinking approximately 6 fireball shots prior to the onset of abdominal pain. CT abdomen and pelvis reveals inflammatory changes suggestive of acute pancreatitis. There are no changes of the small bowel or colon to suggest ischemic colitis. Review of Systems 2 Review of Systems: Yes Unobtainable due to mental condition PMFSH Past Medical History Medical History (Updated 03/17/24 @ 10:08 by Willie Beaver MD) 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 Shelia-Gee tear FH: cholecystectomy Surgical History Surgical History (Updated 10/30/20 @ 22:35 by Naomy Dobbins RN) History of biopsy Social History Social History Alcohol intake: current Alcohol intake frequency: holidays/special occasions only Smoked in Last 30 Days: Yes Use of substances other than those prescribed or required for medical reasons: No Advance Directives: No Advance Directives Information Provided: No Patient : No Meds Allergies Allergy/AdvReac Type Severity Reaction Status Date / Time ibuprofen [From Motrin] Allergy Unknown HIVES Verified 03/17/24 01:35 tramadol [Tramadol] AdvReac Unknown NAUSEA Verified 03/17/24 01:35 Home Medications ?Medication ?Instructions ?Recorded ?Confirmed ?Last Taken ?Type buprenorphine 12 mg-naloxone 3 mg 2 film sublingual DAILY 03/17/24 03/17/24 Unknown History sublingual film (Suboxone) omeprazole 20 mg capsule,delayed 20 mg PO DAILY 03/17/24 03/17/24 Unknown History release Physical Exam 2 Vital Signs: Vital Signs: Last Vital Signs Temp 98.9 F 03/17/24 07:25 Pulse 86 03/17/24 08:03 Resp 36 H 03/17/24 08:52 BP 188/94 H 03/17/24 08:03 Pulse Ox 99 03/17/24 08:03 O2 Del Method Room Air 03/17/24 07:25 BMI result Body Mass Index 28.8 Const: General: acute distress moderate Eyes: Other: No scleral icterus Resp: Effort & Inspection: tachypneic Auscultation: clear to auscultation bilaterally GI: Palpation (GI): Soft to palpation, Tenderness to palpation present (GI) in the epigastrum, in the LUQ and in the RUQ; with no rebound tenderness, no guarding and not rigid Rectal Exam - Female: deferred Skin: General skin exam: no rashes or lesions noted Extrem: General: Yes no clubbing, cyanosis or edema Results Labs 03/17/24 03:37 03/17/24 03:37 Labs: Abnormal lab results 03/17/24 03/17/24 Range/Units 03:37 08:06 WBC 11.4 H (4.8-10.8) X10*3/uL Hgb 10.9 L (12.0-16.0) g/dl Hct 36.7 L (37.0-47.0) % MCV 75.8 L (80.0-98.0) fL MCH 22.5 L (27.0-33.0) pg MCHC 29.7 L (31.0-35.0) g/dl RDW 22.4 H (11.0-16.0) % Neut % (Auto) 79.0 H (45-73) % Lymph % (Auto) 11.1 L (20-40) % Abs Immat Gran (auto) 0.04 H (0.00-0.03) X10*3/uL Absolute Neuts (auto) 9.0 H (2.0-8.3) x10*3/uL BUN 8 L (9-16) mg/dL AST 69 H (5-31) U/L ALT 35 H (0-31) U/L Total Protein 8.3 H (6.5-8.0) g/dL Lipase 374 H (8-78) U/L Ur Specific [place] >= 1.030 H (1.005-1.025) Urine Opiates Screen POSITIVE H (Not Detect) Ur Buprenorphine Scrn Positive H (Not Detect) ng/mL Ur Amphetamines Screen POSITIVE H (Not Detect) Short CBC 03/17/24 Range/Units 03:37 WBC 11.4 H (4.8-10.8) X10*3/uL Hgb 10.9 L (12.0-16.0) g/dl Hct 36.7 L (37.0-47.0) % Plt Count 244 (160-400) X10*3/uL BMP 03/17/24 03:37 Sodium 137 Potassium 3.9 Chloride 104 Carbon Dioxide 23 BUN 8 L Creatinine 0.63 Calcium 9.1 D Liver Function 03/17/24 Range/Units 03:37 Total Bilirubin 0.3 (0.0-1.0) mg/dL Direct Bilirubin 0.2 (0.0-0.5) mg/dL AST 69 H (5-31) U/L ALT 35 H (0-31) U/L Alkaline Phosphatase 103 (39-117) U/L Albumin 4.0 (3.5-5.0) g/dL Urine 03/17/24 Range/Units 08:06 Urine Color Yellow Urine Appearance Clear Urine pH 6.0 (5.0-9.0) Ur Specific [place] >= 1.030 H (1.005-1.025) Urine Protein Negative (Neg-Trace) mg/dL Urine Glucose (UA) Negative (Negative) mg/dL All other labs normal. Assessment and Plan (1) Acute alcoholic pancreatitis: Qualifiers: Acute pancreatitis complication: no infection or necrosis Qualified Code(s): K85.20 - Alcohol induced acute pancreatitis without necrosis or infection Status: Acute Plan 49-year-old female patient presenting with severe upper abdominal pain radiating into the back found to have probable alcoholic induced pancreatitis. CT abdomen and pelvis reviewed and does reveal inflammatory changes of the pancreas. No changes are noted in the small bowel or colon to indicate ischemic colitis at this time. Discussed with Dr. Sylvester. Procedures Date of Service Date of Service: 03/17/24
--- NOTE | 2024-03-17 11:29 | PM.IMHP ---
History of Present Illness Date of Service: 03/17/24 Attending physician on admission: Morenita Sylvester Chief Complaint: abd pain 49-year-old female with past medical history of metastatic stomach cancer-status post partial gastrectomy, Shelia-Gee tear, cholecystectomy-came to the hospital because of abdominal pain -she says it started after taking 6 nips of fireball, she is very agitated and in pain, history is limited-taken with the help of and the daughter at bedside also: Patient was sober until last year and afterwards she started drinking alcohol again-she is using at 4-6 nips almost every day, from 2-3 days she is having significant nausea, and also having abdominal pain mostly in leg left flank area going to the back, no vomiting, but spitting up some liquid. Currently saying pain in 08/26 and sharp, in ED patient received multiple doses of Dilaudid, CT abdomen done which shows possible pancreatitis, lactic acid normal,Seen by surgery also-no acute surgical issues, recommended to treat for pancreatitis. Denies any fever or chills. In ED patient was found to have mild elevated lipase of 370, mild elevated LFTs, CT abdomen:1. Moderate peripancreatic stranding and small amount of fluid, suspicious for pancreatitis. 2. Postoperative changes from prior partial gastrectomy and gastrojejunal anastomosis. No evidence of bowel obstruction. 3. Periumbilical ventral hernia containing loops of nondilated small bowel. 4. Hepatomegaly with steatosis. In ED: Patient received multiple doses of Dilaudid, also received fentanyl-patient still has uncontrolled pain, unable to tolerate food, admission was requested for acute pancreatitis. Review of Systems Review of Systems: Yes all other systems are reviewed and are negative [facility] Medical History 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 Shelia-Gee tear FH: cholecystectomy Surgical History History of biopsy Social History Alcohol intake: current Alcohol intake frequency: holidays/special occasions only Patient Tobacco Use Status: Never used Tobacco Smoked in Last 30 Days: Yes Use of substances other than those prescribed or required for medical reasons: No Advance Directives: No Advance Directives Information Provided: No Nutrition Risks: No Nutritional Risk Patient : No Meds Allergies Allergy/AdvReac Type Severity Reaction Status Date / Time ibuprofen [From Motrin] Allergy Unknown HIVES Verified 03/17/24 01:35 tramadol [Tramadol] AdvReac Unknown NAUSEA Verified 03/17/24 01:35 Active Medications: Current Medications Clonidine HCl (Clonidine Hcl 0.1 Mg Tablet) 0.1 mg PO BID AYLEEN; Protocol Hydromorphone HCl (Hydromorphone Hcl 1 Mg/Ml Syringe) 1 mg IVPUSH Q3H PRN; Protocol PRN Reason: Pain, Severe (Pain Scale 7-10) Lactated Ringer's (Lr) 1,000 mls @ 125 mls/hr IVCONT .Q8H AYLEEN Thiamine HCl 100 mg/ Sodium (Chloride) 101 mls @ 202 mls/hr IV DAILY AYLEEN Folic Acid 1 mg/ Sodium (Chloride) 50.2 mls @ 100.4 mls/hr IV DAILY [facility] Sodium Chloride (0.9 % Sodium Chloride Flush 3 Ml Syringe) 3 ml IVFLUSH QSHIFT [facility] Home Medications ?Medication ?Instructions ?Recorded ?Confirmed ?Last Taken ?Type buprenorphine 12 mg-naloxone 3 mg 2 film sublingual DAILY 03/17/24 03/17/24 Unknown History sublingual film (Suboxone) omeprazole 20 mg capsule,delayed 20 mg PO DAILY 03/17/24 03/17/24 Unknown History release Physical Exam Vital Signs and Narrative: Vital Signs: Last Vital Signs Temp 98.9 F 03/17/24 07:25 Pulse 100 03/17/24 10:51 Resp 20 03/17/24 10:51 BP 184/82 H 03/17/24 10:51 Pulse Ox 93 03/17/24 10:51 O2 Del Method Room Air 03/17/24 10:51 BMI result Body Mass Index 28.8 Appearance: Alert.? Oriented X3.? in pain -limited exam. cvs: rrr, [id number] , no murmur res: clear to auscultation ,no rhonchii or wheezing abd: tenderness mostly in left flank going to back, bs present, no guarding and not rigid . ext pulses present , no cyanosis . neuro: axo3 , nonfocal. Results Labs 03/17/24 03:37 03/17/24 03:37 Labs: Laboratory Results - last 24 hr 03/17/24 03/17/24 03/17/24 03:37 08:06 09:29 MCV 75.8 L MCH 22.5 L MCHC 29.7 L RDW 22.4 H Plt Count 244 MPV 10.2 Immature Gran % (Auto) 0.3 Neut % (Auto) 79.0 H Lymph % (Auto) 11.1 L [place] % (Auto) 8.2 Eos % (Auto) 1.1 Baso % (Auto) 0.3 Lymph # (Auto) 1.3 [place] # (Auto) 0.9 Eos # (Auto) 0.1 Baso # (Auto) 0.0 Abs Immat Gran (auto) 0.04 H Absolute Neuts (auto) 9.0 H Absolute Nucleated RBC 0.000 Nucleated RBC % (auto) 0.0 Anion Gap 14 Estim Creat Clear Calc 98.1 Estimated GFR > 60 Random Glucose 102 Lactic Acid 1.1 Calcium 9.1 D Total Bilirubin 0.3 Direct Bilirubin 0.2 AST 69 H ALT 35 H Alkaline Phosphatase 103 Total Protein 8.3 H Albumin 4.0 Lipase 374 H Beta HCG, Quant < 2 Urine Color Yellow Urine Appearance Clear Urine pH 6.0 Ur Specific [place] >= 1.030 H Urine Protein Negative Urine Glucose (UA) Negative Urine Ketones 40 Urine Blood Negative Urine Nitrite Negative Ur Leukocyte Esterase Negative Urine Opiates Screen POSITIVE H Ur Buprenorphine Scrn Positive H Ur Oxycodone Screen Not Detected Urine Methadone Screen Not Detected Urine Fentanyl Screen Not Detected Ur Barbiturates Screen Not Detected Ur Phencyclidine Scrn Not Detected Ur Amphetamines Screen POSITIVE H U Benzodiazepines Scrn Not Detected Urine Cocaine Screen Not Detected U Marijuana (THC) Screen Not Detected Imaging Radiologist's Impressions: Impressions Abdomen/Pelvis CT 03/17/24 05:25 IMPRESSION: 1. Moderate peripancreatic stranding and small amount of fluid, suspicious for pancreatitis. 2. Postoperative changes from prior partial gastrectomy and gastrojejunal anastomosis. No evidence of bowel obstruction. 3. Periumbilical ventral hernia containing loops of nondilated small bowel. 4. Hepatomegaly with steatosis. 5. Mild splenomegaly. Assessment and Plan (1) Acute alcoholic pancreatitis: Qualifiers: Acute pancreatitis complication: no infection or necrosis Qualified Code(s): K85.20 - Alcohol induced acute pancreatitis without necrosis or infection Status: Acute (2) Alcohol use: Status: Acute Plan 49-year-old female with past medical history of metastatic stomach cancer-status post partial gastrectomy, Shelia-Gee tear, cholecystectomy-came to the hospital because of abdominal pain -she says it started after taking 6 nips of fireball. acute pancreatitis- mild leucocytosis reactive to pancreatitis lactic acid normal,c abd -possible pancreatitis Seen by general surgery no acute intervention. IV hydration, IV pain meds, ppi,? Also on methadone because of previous surgery of gastrectomy. Added Addiction, GI evaluation elevated Bp -no hx of htn : added clonidine alcohol use : added ciwa ,thiamine,folic acid. no hx of withdrawal. addiction pain control on suxaone -s/p surgery gasterectomy Patient will benefit from 2 midnight stays: Considering acute pancreatitis status post alcohol use: Need bowel rest, IV hydration and pain management as well as GI evaluation. Quality Stroke Does the patient have a stroke diagnosis?: No VTE Prior VTE?: No VTE Risk Level:: Medical - moderate - high VTE Device Contraindication: N/A - Device Ordered VTE Drug Contraindication: N/A - Med Ordered
[2024-03-17] MEDS: Thiamine HCL 100 MG in 0.9 % Sodium Chloride 100 ML 202 MG IV (12:00)
[2024-03-17] MEDS: cloNIDine HCL 0.1 MG TABLET PO ×2 (12:19→20:08)
[2024-03-17] MEDS: Folic Acid 1 MG in 0.9 % Sodium Chloride 50 ML 100.4 MG IV (13:25)
[2024-03-17] MEDS: Lactated Ringers 1,000 ML 125 ML IVCONT (14:23)
[2024-03-17] MEDS: 0.9 % Sodium Chloride Flush 3 ML SYRINGE IVFLUSH (16:12)
--- NOTE | 2024-03-17 16:34 | PM.EVENT ---
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
[2024-03-17] MEDS: Enoxaparin Sodium 40 MG/0.4 ML SYRINGE SUBCUT (17:13)
[2024-03-17] MEDS: Buprenorphine/Naloxone 8/2 mg FILM 1 FILM SUBLINGUAL (17:16)
--- NOTE | 2024-03-17 18:59 | PC.NURSE ---
Pt laying in bed with at bedside, waiting to be brought upstairs.
[2024-03-17] MEDS: HYDROmorphone HCl 1 MG/ML SYRINGE 1.5 MG IVPUSH (20:05)
[2024-03-17] MEDS: Morphine Sulfate 4 MG/ML CARTRIDGE 6 MG IVPUSH (21:44)
[2024-03-18] VITALS (10 sets, daily range): BP systolic 123–148; BP diastolic 71–87; PULSE 79–115; RESP 18–20; TEMP 36.2–37.4; O2SAT 92–97
[2024-03-18] MEDS: Buprenorphine/Naloxone 8/2 mg FILM 1 FILM SUBLINGUAL ×3 (00:03→17:30)
[2024-03-18] MEDS: Lactated Ringers 1,000 ML 125 ML IVCONT ×3 (01:18→18:28)
[2024-03-18] MEDS: Morphine Sulfate 4 MG/ML CARTRIDGE 6 MG IVPUSH ×4 (01:18→21:20)
[2024-03-18] MEDS: HYDROmorphone HCl 1 MG/ML SYRINGE 2 MG IVPUSH ×2 (04:09→08:35)
[2024-03-18] MEDS: cloNIDine HCL 0.1 MG TABLET PO ×3 (08:34→21:20)
[2024-03-18] MEDS: Folic Acid 1 MG in 0.9 % Sodium Chloride 50 ML 100.4 MG IV (08:35)
[2024-03-18] MEDS: Thiamine HCL 100 MG in 0.9 % Sodium Chloride 100 ML 202 MG IV (08:35)
[2024-03-18] MEDS: Omeprazole 20 MG CAPSULE.DR PO (08:35)
[2024-03-18] MEDS: 0.9 % Sodium Chloride Flush 3 ML SYRINGE IVFLUSH (08:36)
[2024-03-18 09:38] LABS: Hematocrit 31.6 % (37.0-47.0); Hemoglobin 9.5 g/dl (12.0-16.0); Mean Corpuscular HGB Conc 30.1 g/dl (31.0-35.0); Mean Corpuscular Hemoglobin 22.7 pg (27.0-33.0); Mean Corpuscular Volume 75.6 fL (80.0-98.0); Mean Platelet Volume 11.7 fL (9.4-12.3); Platelet Count 201 X10*3/uL (160-400); Red Blood Count 4.18 X10*6/uL (4.20-5.50); Red Cell Distribution Width 22.7 % (11.0-16.0); White Blood Count 14.7 X10*3/uL (4.8-10.8)
[2024-03-18 09:59] LABS: Anion Gap 13 (12-20); Blood Urea Nitrogen 8 mg/dL (9-16); Calcium 9.2 mg/dL (8.4-10.2); Carbon Dioxide 23 mmol/L (22-29); Chloride 101 mmol/L (96-108); Creatinine Clr Calc Pharmacy 99.7; Estimated Glomerular Filt Rate > 60; Glucose Random 74 mg/dL (60-115); Potassium 3.9 mmol/L (3.3-5.1); Sodium 133 mmol/L (135-145)
--- NOTE | 2024-03-18 10:39 | HO.ADDICTCON ---
History of Present Illness Date of Service: 03/18/2024 Chief Complaint: Abdominal Pain Acute Pancreatitis Alcohol Abuse Et Reason for Consult: alcohol related pancreatitis Sources of Information: patient interviewed and chart reviewed HPI Narrative: Patient is a 49 year old female medically admitted with acute pancreatitis. Yesterday (03/17/24) pain was was very difficult to manage and she required several adjustments and augmentation of meds. Today, pain much better controlled when seen by this marketing copywriter and vp customer service in the AM. She denies any withdrawal sx and reports pain is much improved with increase in medication and frequent dosing. She is awake, alert and engaged in interview Patient reports recurrence of drinking within the last 4 months. Drinking several nips of fireball daily. Identified loneliness and lack of structure as major factor in her drinking Reported anxiety with socializing in the community and will isolate Started drinking at age 35 following the of a boyfriend and has been drinking on and off since then, with 4 years in recovery up until 4 months ago. Denies any previous history of pancreatitis or alcohol associated illness Suboxone via [facility] in [place] who she states has been supportive and aware of her increase in drinking. Discussed DRE and it seems she has trialed Acamprosate and Disulfiram and did not find either to be effective. Discussed other recovery supports including meetings, peer recovery centers, recovery coaching, etc. Patient pleased to hear about these options and requestig more information. This marketing copywriter downloaded the meeting finder ioana on patient's phone and showed her how to access zoom meetings as a way to reintegrate into recovery supports. She reports her goal is to abstain from drinking and is open to trialing new strategies Review of Systems Constitutional: Reports as per HPI Diagnostics Vital Signs (24Hr): Vital Signs - 24 hr 03/17/24 10:44 03/17/24 10:51 03/17/24 12:08 Temperature 98.8 F Pulse Rate 100 102 H Respiratory Rate 19 20 16 Blood Pressure 184/82 H 177/86 H Pulse Oximetry 93 95 Oxygen Delivery Method Room Air Room Air 03/17/24 12:19 03/17/24 14:49 03/17/24 16:10 Temperature Pulse Rate Respiratory Rate 17 Blood Pressure 177/86 H 192/90 H Pulse Oximetry Oxygen Delivery Method 03/17/24 19:21 03/17/24 19:49 03/17/24 20:00 Temperature 98.7 F 97.9 F Pulse Rate 92 91 Respiratory Rate 20 26 H Blood Pressure 183/105 H 174/85 H 165/94 H Pulse Oximetry 93 95 Oxygen Delivery Method Room Air Room Air 03/17/24 20:05 03/17/24 20:08 03/17/24 20:40 Temperature Pulse Rate Respiratory Rate 20 20 Blood Pressure 174/85 H Pulse Oximetry Oxygen Delivery Method 03/17/24 21:15 03/17/24 21:51 03/17/24 22:20 Temperature Pulse Rate 105 H Respiratory Rate 20 20 Blood Pressure 165/94 H Pulse Oximetry Oxygen Delivery Method 03/17/24 23:56 03/18/24 01:18 03/18/24 04:00 Temperature 98.9 F 98.0 F Pulse Rate 95 100 Respiratory Rate 20 18 20 Blood Pressure 157/81 H 148/86 H Pulse Oximetry 95 96 Oxygen Delivery Method Room Air Room Air 03/18/24 04:09 03/18/24 05:29 03/18/24 08:00 Temperature 97.6 F Pulse Rate 96 Respiratory Rate 20 18 20 Blood Pressure 140/74 H Pulse Oximetry 93 Oxygen Delivery Method Room Air BMI result Body Mass Index 28.8 Labs 03/18/24 08:40 03/18/24 08:40 Labs: Laboratory Results - last 48 hr 03/17/24 03/17/24 03/17/24 03:37 08:06 09:29 WBC 11.4 H RBC 4.84 Hgb 10.9 L Hct 36.7 L MCV 75.8 L MCH 22.5 L MCHC 29.7 L RDW 22.4 H Plt Count 244 MPV 10.2 Immature Gran % (Auto) 0.3 Neut % (Auto) 79.0 H Lymph % (Auto) 11.1 L [place] % (Auto) 8.2 Eos % (Auto) 1.1 Baso % (Auto) 0.3 Lymph # (Auto) 1.3 [place] # (Auto) 0.9 Eos # (Auto) 0.1 Baso # (Auto) 0.0 Abs Immat Gran (auto) 0.04 H Absolute Neuts (auto) 9.0 H Absolute Nucleated RBC 0.000 Nucleated RBC % (auto) 0.0 Sodium 137 Potassium 3.9 Chloride 104 Carbon Dioxide 23 Anion Gap 14 BUN 8 L Creatinine 0.63 Estim Creat Clear Calc 98.1 Estimated GFR > 60 Random Glucose 102 Lactic Acid 1.1 Calcium 9.1 D Total Bilirubin 0.3 Direct Bilirubin 0.2 AST 69 H ALT 35 H Alkaline Phosphatase 103 Total Protein 8.3 H Albumin 4.0 Lipase 374 H Beta HCG, Quant < 2 Urine Color Yellow Urine Appearance Clear Urine pH 6.0 Ur Specific Tichnor >= 1.030 H Urine Protein Negative Urine Glucose (UA) Negative Urine Ketones 40 Urine Blood Negative Urine Nitrite Negative Ur Leukocyte Esterase Negative Urine Opiates Screen POSITIVE H Ur Buprenorphine Scrn Positive H Ur Oxycodone Screen Not Detected Urine Methadone Screen Not Detected Urine Fentanyl Screen Not Detected Ur Barbiturates Screen Not Detected Ur Phencyclidine Scrn Not Detected Ur Amphetamines Screen POSITIVE H U Benzodiazepines Scrn Not Detected Urine Cocaine Screen Not Detected U Marijuana (THC) Screen Not Detected 03/18/24 08:40 WBC 14.7 H RBC 4.18 L Hgb 9.5 L Hct 31.6 L MCV 75.6 L MCH 22.7 L MCHC 30.1 L RDW 22.7 H Plt Count 201 MPV 11.7 Immature Gran % (Auto) Neut % (Auto) Lymph % (Auto) [place] % (Auto) Eos % (Auto) Baso % (Auto) Lymph # (Auto) [place] # (Auto) Eos # (Auto) Baso # (Auto) Abs Immat Gran (auto) Absolute Neuts (auto) Absolute Nucleated RBC 0.000 Nucleated RBC % (auto) 0.0 Sodium 133 L Potassium 3.9 Chloride 101 Carbon Dioxide 23 Anion Gap 13 BUN 8 L Creatinine 0.62 Estim Creat Clear Calc 99.7 Estimated GFR > 60 Random Glucose 74 Lactic Acid Calcium 9.2 Total Bilirubin Direct Bilirubin AST ALT Alkaline Phosphatase Total Protein Albumin Lipase Beta HCG, Quant Urine Color Urine Appearance Urine pH Ur Specific [place] Urine Protein Urine Glucose (UA) Urine Ketones Urine Blood Urine Nitrite Ur Leukocyte Esterase Urine Opiates Screen Ur Buprenorphine Scrn Ur Oxycodone Screen Urine Methadone Screen Urine Fentanyl Screen Ur Barbiturates Screen Ur Phencyclidine Scrn Ur Amphetamines Screen U Benzodiazepines Scrn Urine Cocaine Screen U Marijuana (THC) Screen Imaging Radiology Impressions: ITS Impressions Abdomen/Pelvis CT 03/17/24 05:25 IMPRESSION: 1. Moderate peripancreatic stranding and small amount of fluid, suspicious for pancreatitis. 2. Postoperative changes from prior partial gastrectomy and gastrojejunal anastomosis. No evidence of bowel obstruction. 3. Periumbilical ventral hernia containing loops of nondilated small bowel. 4. Hepatomegaly with steatosis. 5. Mild splenomegaly. Mental Status Exam Mental Status Exam Patient Appearance: Appropriate Level of Consciousness: Awake, Appropriate and Alert Patient Behavior: Appropriate Affect Description: Calm Speech Pattern: Clear Thought Process: Intact Thought Content: positive for Intact Depressive Symptoms: Increased Anxiety, Loss of Int. in Activity and Feelings of Guilt Medications Medications Current Medications Buprenorphine/Naloxone (Buprenorphine/Naloxone 8/2 Mg Film) 1 film SUBLINGUAL Q8H [facility] Last Admin: 03/18/24 08:35 Dose: 1 film Clonidine HCl (Clonidine Hcl 0.1 Mg Tablet) 0.1 mg PO TID [facility]; Protocol Last Admin: 03/18/24 08:34 Dose: 0.1 mg Enoxaparin Sodium (Enoxaparin Sodium 40 Mg/0.4 Ml Syringe) 40 mg SUBCUT Q24H [facility] Last Admin: 03/17/24 17:13 Dose: 40 mg Hydromorphone HCl (Hydromorphone Hcl 1 Mg/Ml Syringe) 2 mg IVPUSH Q3H PRN; Protocol PRN Reason: Pain, Severe (Pain Scale 7-10) Last Admin: 03/18/24 08:35 Dose: 2 mg Lactated Ringer's (Lr) 1,000 mls @ 125 mls/hr IVCONT .Q8H [facility] Last Admin: 03/18/24 10:23 Dose: 125 mls/hr Thiamine HCl 100 mg/ Sodium (Chloride) 101 mls @ 202 mls/hr IV DAILY [facility] Last Infusion: 03/18/24 10:19 Dose: Infused Folic Acid 1 mg/ Sodium (Chloride) 50.2 mls @ 100.4 mls/hr IV DAILY [facility] Last Infusion: 03/18/24 10:19 Dose: Infused Morphine Sulfate (Morphine Sulfate 4 Mg/Ml Cartridge) 6 mg IVPUSH Q4H PRN; Protocol PRN Reason: Pain, Moderate(Pain Scale 4-6) Last Admin: 03/18/24 01:18 Dose: 6 mg Omeprazole (Omeprazole 20 Mg Capsule.Dr) 20 mg PO DAILY [facility] Last Admin: 03/18/24 08:35 Dose: 20 mg Sodium Chloride (0.9 % Sodium Chloride Flush 3 Ml Syringe) 3 ml IVFLUSH QSHIFT [facility] Last Admin: 03/18/24 08:36 Dose: 3 ml Allergies Allergies Allergy/AdvReac Type Severity Reaction Status Date / Time ibuprofen [From Motrin] Allergy Unknown HIVES Verified 03/17/24 01:35 tramadol [Tramadol] AdvReac Unknown NAUSEA Verified 03/17/24 01:35 Assessment & Plan Assessment & Plan (1) Alcohol use disorder, severe, dependence: Status: Acute Code(s): F10.20 - Alcohol dependence, uncomplicated Assessment and Plan: risk reduction strategies discussed recovery supports discussed vp customer service provided several resources and will request RC see patient this evening DRE reviewed Total time managing care of this patient today __40__ minutes. 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
--- NOTE | 2024-03-18 12:59 | MHC.CM.PN ---
Pt self-care, lives at home with her boyfriend, daughter, and granddaughter. Pts boyfriend will transport her home at discharge. Pt declines to fill out a HCP at this time, education provided. PCP: Dr. Jamal Rogers
--- NOTE | 2024-03-18 15:03 | P.PNIM_ITS ---
Subjective Subjective Date of Service: 03/18/24 Interval History: Acute pancreatitis alcoholic. Review of Systems Abdominal pain improving somewhat but still has significant pain. Minimal nausea No vomiting or fever Physical Exam 2 Vital Signs: Vital Signs: Last Vital Signs Temp 97.9 F 03/18/24 11:46 Pulse 96 03/18/24 11:46 Resp 20 03/18/24 11:46 BP 127/71 03/18/24 11:46 Pulse Ox 93 03/18/24 11:46 O2 Del Method Room Air 03/18/24 11:46 BMI result Body Mass Index 28.8 Appearance: Alert.? Oriented X3.? in pain -limited exam. cvs: rrr, [id number] , no murmur res: clear to auscultation ,no rhonchii or wheezing abd: tenderness left sided somewhat improving, bs present, no guarding and not rigid . ext pulses present , no cyanosis . neuro: axo3 , nonfocal. Objective Data Active Medications Buprenorphine/Naloxone (Buprenorphine/Naloxone 8/2 Mg Film) 1 film SUBLINGUAL Q8H [facility] Last Admin: 03/18/24 08:35 Dose: 1 film Documented By: ELOISA Clonidine HCl (Clonidine Hcl 0.1 Mg Tablet) 0.1 mg PO TID [facility]; Protocol Last Admin: 03/18/24 08:34 Dose: 0.1 mg Documented By: ELOISA Enoxaparin Sodium (Enoxaparin Sodium 40 Mg/0.4 Ml Syringe) 40 mg SUBCUT Q24H [facility] Last Admin: 03/17/24 17:13 Dose: 40 mg Documented By: HANG Hydromorphone HCl (Hydromorphone Hcl 1 Mg/Ml Syringe) 2 mg IVPUSH Q3H PRN; Protocol PRN Reason: Pain, Severe (Pain Scale 7-10) Last Admin: 03/18/24 08:35 Dose: 2 mg Documented By: ELOISA Lactated Ringer's (Lr) 1,000 mls @ 125 mls/hr IVCONT .Q8H [facility] Last Admin: 03/18/24 10:23 Dose: 125 mls/hr Documented By: ELOISA Thiamine HCl 100 mg/ Sodium (Chloride) 101 mls @ 202 mls/hr IV DAILY [facility] Last Infusion: 03/18/24 10:19 Dose: Infused Documented By: ELOISA Folic Acid 1 mg/ Sodium (Chloride) 50.2 mls @ 100.4 mls/hr IV DAILY [facility] Last Infusion: 03/18/24 10:19 Dose: Infused Documented By: ELOISA Morphine Sulfate (Morphine Sulfate 4 Mg/Ml Cartridge) 6 mg IVPUSH Q4H PRN; Protocol PRN Reason: Pain, Moderate(Pain Scale 4-6) Last Admin: 03/18/24 11:02 Dose: 6 mg Documented By: ELOISA Omeprazole (Omeprazole 20 Mg Capsule.) 20 mg PO DAILY [facility] Last Admin: 03/18/24 08:35 Dose: 20 mg Documented By: ELOISA Sodium Chloride (0.9 % Sodium Chloride Flush 3 Ml Syringe) 3 ml IVFLUSH QSHIFT [facility] Last Admin: 03/18/24 08:36 Dose: 3 ml Documented By: ELOISA Labs 03/18/24 08:40 03/18/24 08:40 Labs: Laboratory Results - last 24 hr 03/18/24 08:40 MCV 75.6 L MCH 22.7 L MCHC 30.1 L RDW 22.7 H Plt Count 201 MPV 11.7 Absolute Nucleated RBC 0.000 Nucleated RBC % (auto) 0.0 Anion Gap 13 Estim Creat Clear Calc 99.7 Estimated GFR > 60 Random Glucose 74 Calcium 9.2 Assessment and Plan (1) Acute alcoholic pancreatitis: Status: Acute (2) Alcohol use disorder, severe, dependence: Status: Acute Plan 49-year-old female with past medical history of metastatic stomach cancer-status post partial gastrectomy, Shelia-Gee tear, cholecystectomy-came to the hospital because of abdominal pain -she says it started after taking 6 nips of fireball. acute pancreatitis- mild leucocytosis reactive to pancreatitis lactic acid normal,c abd -possible pancreatitis Seen by general surgery no acute intervention. IV hydration, IV pain meds, ppi,? Also on methadone because of previous surgery of gastrectomy. will try clear liquid diet Added Addiction, GI evaluation elevated Bp -no hx of htn : added clonidine alcohol use : added ciwa ,thiamine,folic acid. no hx of withdrawal. addiction pain control on suxaone -s/p surgery gasterectomy ongoing hospitlisation stay : Considering acute pancreatitis status post alcohol use: Need bowel rest, IV hydration and pain management as well as GI evaluation. Quality Stroke Does the patient have a stroke diagnosis?: No VTE Prior VTE?: No VTE Risk Level:: Medical - moderate - high VTE Device Contraindication: N/A - Device Ordered VTE Drug Contraindication: N/A - Med Ordered
--- NOTE | 2024-03-18 17:55 | PM.EVENT ---
Event Note Date of Service: 03/18/24 Event Note: GI Consult-Full note dictated Imp: Resolving acute alcohol-induced pancreatitis. She has no worrisome features on her labs nor by her xray. She reports feeling much better and tolerating liquids. Rec: F/U labs in AM. Advance diet in AM if remaining stable from pancreatitis. 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 I advised her to follow up with her Oncologist re: her history of gastric cancer as well. Thanks. Time Spent With Patient Time: Total time managing care of this patient today ____ minutes.
--- NOTE | 2024-03-18 22:52 | CONS_ITS ---
DATE OF SERVICE: 03/18/2024 REASON FOR CONSULTATION: Pancreatitis. HISTORY OF PRESENT ILLNESS: The patient is a 49-year-old female with a longstanding history of intermittent alcohol use. She describes that she began drinking regularly again at least several months ago. She denies any previous history of pancreatitis, but over the past 2 days prior to admission, she was having abdominal pain with some vomiting. The pain was rather diffuse but mainly in the upper abdominal area. She did not notice any signs of jaundice, fevers, nor evidence of GI bleeding. She never had any coffee-grounds emesis, melena, nor hematochezia. Due to persistent symptoms of the pain and vomiting. She finally came to the hospital for admission and was found to have some pancreatitis. The patient has been drinking on a daily and regular basis up until this admission. She has not been on any new medication. She does not use any chronic NSAIDs. She does take omeprazole every day. She denies any known family history of pancreatic disease. Since admission here in the hospital, she has been feeling better. At the present time, she reports that she has been tolerating her liquids and is hungry for some more substantial diet. MEDICATIONS: Medications at home included Suboxone and omeprazole. Medications here in the hospital include Suboxone, clonidine, Lovenox, folic acid, hydromorphone p.r.n., morphine p.r.n. PAST MEDICAL HISTORY: At least a partial gastrectomy for some type of gastric cancer several years ago at [facility]. The surgery was done by Dr. Chavez. She did receive at least 1 dose of chemotherapy, but does not sound like she has followed up with her oncologist for several years. She has a history of some reflux. She denies any history of VA, diabetes, nor stroke. Surgical history aside from the above-mentioned gastric surgery for reported gastric cancer, would also include a cholecystectomy. She denies a history of VA, diabetes, stroke, nor lung disease. SOCIAL HISTORY: She does smoke. Alcohol as above. She presently does not work. FAMILY HISTORY: Noncontributory. REVIEW OF SYSTEMS: CONSTITUTIONAL: Prior becoming ill with pancreatitis. Last few days, she has been feeling fairly well with good energy good appetite. SKIN: No rash, no pruritus. CARDIAC: No chest pain. PULMONARY: No cough, no hemoptysis. GI: As above. URINARY: No dysuria, no hematuria. NEUROLOGIC: No headache or seizures. PHYSICAL EXAMINATION: GENERAL: The patient is a pleasant, alert, comfortable-appearing female. SKIN: Warm and dry. Anicteric sclerae. Moist mucous membranes. NECK: Supple. CHEST: Clear. CARDIAC: Normal S1, S2. ABDOMEN: Soft, nondistended, and nontender. There is no focal mass, rebound, nor guarding. EXTREMITIES: Without edema. LABORATORY DATA: White blood cell count has increased from 11.4 yesterday to 14.7 today. Hemoglobin was 10.9 yesterday and 9.5 today. Platelets 201,000. Sodium 133, potassium 3.9, BUN 8, creatinine 0.6, calcium 9.1, total bilirubin 0.3, AST 69, ALT 35, alkaline phosphatase 103, albumin 4.0, lipase 374 yesterday. She did have a CT scan of the abdomen and pelvis describing some moderate stranding and a small amount of fluid around the pancreas but without any sign of abscess, mass, nor other pathology. She did have an enlarged liver and fatty liver, but without any sign of liver lesion nor biliary obstruction. Her previous gastric surgery appeared intact with a normal-appearing gastrojejunal anastomosis and no evidence of any bowel obstruction. IMPRESSION: The patient is a 49-year-old female with a longstanding history of intermittent alcohol use, presenting with acute pancreatitis most certainly related to ongoing alcohol use. Aside from alcohol, she does not have any other risk factors such as gallbladder disease given her previous cholecystectomy. I doubt this represents any type of biliary process given her normal LFTs other than some very minimal alcohol induced elevations on admission. At this point, she does report that she is feeling much better. She has been tolerating her liquids. At this point, I would recommend observing her overnight and then advancing her diet in the morning if stable. She will have followup laboratories in the morning. I have reviewed with her in detail the need to abstain from alcohol long-term, as well as the importance of following up with her oncologist in regard to the history of previous gastric cancer by her description. Hopefully, if things remain stable and are improved tomorrow, she could go home in the next 24 to 48 hours. Again, the lopez thing will be keeping her off alcohol and hopefully be able to have her in some sort of program to help with that. This has all been discussed in detail with the patient and she is comfortable with that plan. Thank you for the consultation. MD RAKEL Naranjo/ABIDA / [id number] MTDD
[2024-03-19] MEDS: Buprenorphine/Naloxone 8/2 mg FILM 1 FILM SUBLINGUAL ×2 (01:09→09:39)
[2024-03-19 03:34] VITALS: BP 130/68; PULSE 79; RESP 20; TEMP 36.8; O2SAT 98
[2024-03-19] MEDS: HYDROmorphone HCl 1 MG/ML SYRINGE IVPUSH ×3 (05:41→14:07)
[2024-03-19] MEDS: Lactated Ringers 1,000 ML 125 ML IVCONT (05:46)
[2024-03-19 08:00] VITALS: BP 131/67; PULSE 87; RESP 16; TEMP 36.8; O2SAT 96
[2024-03-19 09:06] LABS: MANUAL DIFF FLAG NO
[2024-03-19 09:16] LABS: Hematocrit 32.6 % (37.0-47.0); Hemoglobin 9.4 g/dl (12.0-16.0)
[2024-03-19 09:27] LABS: Anion Gap 14 (12-20); Blood Urea Nitrogen 8 mg/dL (9-16); Calcium 9.4 mg/dL (8.4-10.2); Carbon Dioxide 24 mmol/L (22-29); Chloride 103 mmol/L (96-108); Creatinine Clr Calc Pharmacy 92.2; Estimated Glomerular Filt Rate > 60; Glucose Fasting 91 mg/dL (60-99); Lipase 55 U/L (8-78); Potassium 3.6 mmol/L (3.3-5.1); Sodium 137 mmol/L (135-145)
[2024-03-19] MEDS: Omeprazole 20 MG CAPSULE.DR PO (09:40)
[2024-03-19] MEDS: cloNIDine HCL 0.1 MG TABLET PO ×2 (09:40→14:06)
[2024-03-19] MEDS: Thiamine HCL 100 MG in 0.9 % Sodium Chloride 100 ML 202 MG IV (09:43)
[2024-03-19] MEDS: 0.9 % Sodium Chloride Flush 3 ML SYRINGE IVFLUSH (09:48)
[2024-03-19] MEDS: Folic Acid 1 MG in 0.9 % Sodium Chloride 50 ML 100.4 MG IV (09:56)
[2024-03-19 11:20] LABS: Basophils Percent Auto 0.3 % (0-2); Eosinophils Absolute Auto 0.2 X10*3/uL (0.0-0.4); Eosinophils Percent Auto 1.2 % (0-4); Hematocrit 32.3 % (37.0-47.0); Hemoglobin 9.4 g/dl (12.0-16.0); Imm Gran Abs Auto 0.07 X10*3/uL (0.00-0.03); Imm Gran Pct Auto 0.5 % (0.0-0.4); Lymphocytes Absolute Auto 1.6 X10*3/uL (1.2-4.9); Mean Corpuscular HGB Conc 29.1 g/dl (31.0-35.0); Mean Corpuscular Hemoglobin 22.9 pg (27.0-33.0); Mean Corpuscular Volume 78.8 fL (80.0-98.0); Mean Platelet Volume 11.6 fL (9.4-12.3); Monocytes Absolute Auto 1.4 X10*3/uL (0.1-1.2); Monocytes Percent Auto 9.9 % (2-11); Neutrophils Absolute Auto 10.9 x10*3/uL (2.0-8.3); Neutrophils Percent Auto 77.1 % (45-73); Platelet Count 201 X10*3/uL (160-400); Red Cell Distribution Width 23.2 % (11.0-16.0); White Blood Count 14.1 X10*3/uL (4.8-10.8)
[2024-03-19 12:00] VITALS: BP 148/72; PULSE 81; RESP 16; TEMP 36.6; O2SAT 96
--- NOTE | 2024-03-19 14:09 | PM.DS ---
DS: Providers Provider Date of Service: 03/19/24 Date of admission: 03/17/24 11:23 Date of discharge: 03/19/24 Primary care physician: Unknown Physician Consults: 03/17/24 09:18 Consult to General Surgery Stat Consulting Provider: [facility] General Surgeons Reason for consultation: concern for ischemic bowel 03/17/24 11:26 Addiction Medicine Routine Consulting Provider: Addiction Covering Reason for consultation: on subaxone -?pain mangement Has provider been notified: No Consult to Gastroenterology Routine Consulting Provider: Dillon Gee Reason for consultation: acute pancreatitis Has provider been notified: No Attending physician on discharge: Morenita Sylvester Discharging clinician: Morenita Sylvester DS: Diagnosis Discharge Diagnosis (1) Alcohol use disorder, severe, dependence: Status: Acute DS: Summary Hospital Course Hospital Course: 49-year-old female with past medical history of metastatic stomach cancer-status post partial gastrectomy, Shelia-Gee tear, cholecystectomy-came to the hospital because of abdominal pain -she says it started after taking 6 nips of fireball, she is very agitated and in pain, history is limited-taken with the help of and the daughter at bedside also: Patient was sober until last year and afterwards she started drinking alcohol again-she is using at 4-6 nips almost every day, from 2-3 days she is having significant nausea, and also having abdominal pain mostly in leg left flank area going to the back, no vomiting, but spitting up some liquid. Currently saying pain in 10/10 and sharp, in ED patient received multiple doses of Dilaudid, CT abdomen done which shows possible pancreatitis, lactic acid normal,Seen by surgery also-no acute surgical issues, recommended to treat for pancreatitis. Denies any fever or chills. In ED patient was found to have mild elevated lipase of 370, mild elevated LFTs, CT abdomen:1. Moderate peripancreatic stranding and small amount of fluid, suspicious for pancreatitis. 2. Postoperative changes from prior partial gastrectomy and gastrojejunal anastomosis. No evidence of bowel obstruction. 3. Periumbilical ventral hernia containing loops of nondilated small bowel. 4. Hepatomegaly with steatosis. In ED: Patient received multiple doses of Dilaudid, also received fentanyl-patient still has uncontrolled pain, unable to tolerate food, admission was requested for acute pancreatitis. Hospital course: patient was admitted for acute pancreatitis sec to alcohol use - found to have elevated lipase , mild transamnitis -treated with bowel rest, IV fluid, IV Dilaudid-patient seems to be improved : tolerating diet . leucocytosis improving seems reactive ,no fevers . mild transamnitis: possible coombination of alcohol use , also has Hepatomegaly with steatosis. elda cmp outpatient -further management and workup outpatient . seen by GI:Patient advised her to abstain completely from alcohol applications engineering manager and advised her to follow up with her Oncologist re: her history of gastric cancer as well. plan: moniter cbc and lfts outpatient and seen by GI:Patient advised her to abstain completely from alcohol fpc and advised her to follow up with her Oncologist re: her history of gastric cancer as well. Above management discussed with the patient in detail length she understand and in agreement with the above plan, time spent 40 minutes and 50% time spent on counseling. Time Attestation Total time managing care of this patient today: 40 mintues. Discharge Coordination Time (in mins): 40 min Quality: Safe Use of Opioids Does Pt have an Active Cancer Diagnosis on the Problem List?: No Quality: Stroke Does the patient have a stroke diagnosis?: No Physical Exam Vital Signs: Vital Signs: Last Vital Signs Temp 97.8 F 03/19/24 12:00 Pulse 81 03/19/24 12:00 Resp 16 03/19/24 12:00 BP 148/72 H 03/19/24 12:00 Pulse Ox 96 03/19/24 12:00 O2 Del Method Room Air 03/19/24 12:00 BMI result Body Mass Index 28.8 Appearance: Alert.? Oriented X3.? in pain -limited exam. cvs: rrr, [id number] , no murmur res: clear to auscultation ,no rhonchii or wheezing abd: tenderness left sided somewhat improving, bs present, no guarding and not rigid . ext pulses present , no cyanosis . neuro: axo3 , nonfocal. DS: Data Data Completed and Pending Labs on day of discharge: Laboratory Results - last 24 hr 03/19/24 03/19/24 03/19/24 08:16 08:16 08:16 WBC 14.1 H RBC 4.10 L Hgb 9.4 L 9.4 L Hct 32.3 L 32.6 L MCV 78.8 L MCH 22.9 L MCHC 29.1 L RDW 23.2 H Plt Count 201 MPV 11.6 Immature Gran % (Auto) 0.5 H Neut % (Auto) 77.1 H Lymph % (Auto) 11.0 L [place] % (Auto) 9.9 Eos % (Auto) 1.2 Baso % (Auto) 0.3 Lymph # (Auto) 1.6 [place] # (Auto) 1.4 H Eos # (Auto) 0.2 Baso # (Auto) 0.0 Abs Immat Gran (auto) 0.07 H Absolute Neuts (auto) 10.9 H Absolute Nucleated RBC 0.000 Nucleated RBC % (auto) 0.0 Sodium 137 Potassium 3.6 Chloride 103 Carbon Dioxide 24 Anion Gap 14 BUN 8 L Creatinine 0.67 Estim Creat Clear Calc 92.2 Estimated GFR > 60 Fasting Glucose 91 Calcium 9.4 Lipase 55 Imaging Chest x-ray: Radiologist's impression: ITS Impressions Abdomen/Pelvis CT 03/17/24 05:25 IMPRESSION: 1. Moderate peripancreatic stranding and small amount of fluid, suspicious for pancreatitis. 2. Postoperative changes from prior partial gastrectomy and gastrojejunal anastomosis. No evidence of bowel obstruction. 3. Periumbilical ventral hernia containing loops of nondilated small bowel. 4. Hepatomegaly with steatosis. 5. Mild splenomegaly. Discharge Plan Discharge Anticipated Discharge Date/Time: 03/19/24 13:53 Patient Disposition: Home, Self-Care Discharge Diagnosis: acute pancreaitis Referrals: Physician,Unknown J [Primary Care Provider] - 1 Week Discharge Medications: New thiamine HCl (vitamin B1) 100 mg tablet 100 mg PO DAILY Qty: 30 0RF folic acid 1 mg tablet 1 mg PO DAILY Qty: 30 0RF Continued omeprazole 20 mg Capsule,Delayed Release(Dr/Ec) 20 mg PO DAILY buprenorphine-naloxone [Suboxone] 12-3 mg film 2 film sublingual DAILY Discharge Orders: Discharge Order (Routine); Ordered 03/19/24 Ordered By: Morenita Sylvester Diet: Advance to usual diet Activity on Discharge: As tolerated Stand Alone Forms: Patient Portal Discharge page Print Language: Stateless Care Plan Goals: patient was admitted for acute pancreatitis sec to alcohol use - found to have elevated lipase , mild transamnitis -treated with bowel rest, IV fluid, IV Dilaudid-patient seems to be improved : tolerating diet . leucocytosis improving seems reactive ,no fevers . mild transamnitis: elda cmp outpatient -further management and workup outpatient . seen by GI:Patient advised her to abstain completely from alcohol applications engineering manager and advised her to follow up with her Oncologist re: her history of gastric cancer as well. Health Concerns: as above. Plan of Treatment: elda lfts outpatient and seen by GI:Patient advised her to abstain completely from alcohol applications engineering manager and advised her to follow up with her Oncologist re: her history of gastric cancer as well. Assessment: as above.
--- NOTE | 2024-03-19 15:10 | MHC.CM.PN ---
PT WILL DC HOME TODAY WITH NO SERVICES VIA PRIVATE TRANSPORT
== END 2024-03-19 14:46 | disposition home or self-care (01) | DRG 282 ==
LOC: HO.ED 07:06 → HO.EDOVER 11:30 → HO.IMC 18:03
PROVIDERS: Internal Medicine; Physician Assistant; Admitting Provider Internal Medicine; Emergency Provider Emergency Medicine Emergency Medical Services; PCP Internal Medicine; Visit Provider Internal Medicine
DX: K85.20 Alcohol induced acute pancreatitis without necrosis or infection (principal); F10.20 Alcohol dependence, uncomplicated; F17.210 Nicotine dependence, cigarettes, uncomplicated; G89.28 Other chronic postprocedural pain; Z71.6 Tobacco abuse counseling; Z90.3 Acquired absence of stomach [part of]; Z85.028 Personal history of other malignant neoplasm of stomach; Z79.891 Long term (current) use of opiate analgesic; Z79.899 Other long term (current) drug therapy
CPT/HCPCS: 0241U; 36415; 74177; 80048; 80053; 80076; 80307; 81001; 81003; 82607; 82728; 82746; 83540; 83605; 83690; 84466; 84478; 84702; 85014; 85018; 85025; 85027; 85045; 99285; C9113; J1170; J1200; J1650; J2270; J2765; J3010; J3411; J7120; Q9967

== ENCOUNTER → 2024-03-17 02:48 | Outpatient (BNV) | payer OTHER, SELFPAY | PROVIDERS: Emergency Provider Emergency Medicine Emergency Medical Services; Visit Provider Surgery | DX: K85.20 Alcohol induced acute pancreatitis without necrosis or infection (principal) | CPT/HCPCS: 99222 ==

== ENCOUNTER → 2024-03-17 11:23 | Outpatient (BNV) | payer OTHER, SELFPAY | PROVIDERS: Admitting Provider Internal Medicine; Emergency Provider Emergency Medicine Emergency Medical Services; Visit Provider Nurse Practitioner Psychiatric/Mental Health | DX: F10.20 Alcohol dependence, uncomplicated (principal) | CPT/HCPCS: 99222; 99499 ==

== ENCOUNTER → 2024-03-17 11:23 | Outpatient (BNV) | payer OTHER, SELFPAY | PROVIDERS: Admitting Provider Internal Medicine; Emergency Provider Emergency Medicine Emergency Medical Services; Visit Provider Internal Medicine | DX: F10.20 Alcohol dependence, uncomplicated (principal) | CPT/HCPCS: 99222; 99232; 99239 ==

== ENCOUNTER 2024-03-20 00:37 | Inpatient (IN) | payer OTHER, SELFPAY ==
[2024-03-20] VITALS (9 sets, daily range): BP systolic 130–190; BP diastolic 77–106; PULSE 87–98; RESP 16–18; TEMP 36.2–36.7; O2SAT 97–100; BMI 29.3; BMI 29.7
--- NOTE | ~2024-03-20 | CT_ITS ---
EXAMINATION: CT ABDOMEN AND PELVIS WITH CONTRAST CLINICAL INFORMATION: Reason for Exam Epi, suprapubic tenderness R/O pancreatitis, perfo COMPARISON: 03/17/2024 TECHNIQUE: Multidetector volumetric images were obtained from the superior aspect of the liver through the pubic symphysis following administration 85 mL of Omnipaque 350 intravenous contrast. Sagittal and coronal reformatted images were obtained on the technologist's workstation. Oral contrast: No This CT examination was performed using dose optimization techniques as appropriate, variously including the following: *Automated exposure control *Adjustment of mA and/or kV according to patient size (this includes techniques or standardized protocols for targeted exams where dose is matched to indication/reason for exam; i.e. extremities or head) *Use of iterative reconstruction technique DLP: 497 mGy-cm FINDINGS: LUNG BASES: Subtle groundglass opacity in the right middle lobe, suggesting mild infectious/inflammatory change. LIVER, GALLBLADDER, AND BILIARY TREE: Liver is again noted to be enlarged measuring approximately 22 cm in length and demonstrates diffuse hypoattenuation consistent with steatosis. No intrahepatic biliary ductal dilatation. Patient is status post cholecystectomy. PANCREAS: Redemonstrated moderate peripancreatic stranding, similar to prior and suspicious for pancreatitis. Small amount of fluid inferior to the pancreatic body appears partially marginated on the current exam, suggesting early developing pseudocyst measuring approximately 3.5 cm in diameter. SPLEEN: Enlarged, measuring approximately 15 cm in the axial plane. ADRENAL GLANDS: Unremarkable. KIDNEYS AND URETERS: Bilateral nephrograms are symmetric. No hydronephrosis or obstructing calculus identified. BLADDER: Unremarkable. GASTROINTESTINAL TRACT: Postoperative changes from partial gastrectomy and gastrojejunostomy. No evidence of bowel obstruction. Limited evaluation for wall thickening in the sigmoid colon due to luminal collapse. Appendix is suspected to be collapsed. No free air is seen. ABDOMINAL WALL: Redemonstrated periumbilical ventral hernia containing a short segment of nondilated small bowel. LYMPH NODES: Several mildly prominent central mesenteric lymph nodes are redemonstrated and may be reactive. VASCULAR: The splenic vein near the portosplenic confluence appears mildly narrowed there remains patent. PELVIC VISCERA: Unremarkable for patient age. OSSEOUS STRUCTURES: Degenerative endplate changes of the lower thoracic spine. Redemonstrated L5 pars defects with anterolisthesis of L5 on S1. CT/CT abdomen pelvis w IV con IMPRESSION: 1. Moderate peripancreatic stranding, similar to prior and suspicious for pancreatitis. Small amount of fluid inferior to the pancreatic body appears partially marginated on the current exam, suggesting early developing pseudocyst measuring approximately 3.5 cm in diameter. 2. Splenic vein near the portosplenic confluence appears mildly narrowed though remains patent, in the setting of surrounding peripancreatic inflammation. 3. Hepatosplenomegaly. Hepatic steatosis. 4. Redemonstrated periumbilical ventral hernia containing a short segment of nondilated small bowel. No evidence of bowel obstruction. 5. Subtle pulmonary groundglass opacity in the right middle lobe, suggesting mild infectious/inflammatory change.
--- OUTSIDE RECORDS SUMMARY | 2024-03-20 00:58 | XMS_ITS | Continuity of Care Document ---
Author Organization [facility] sara Address [address] [place] [address] [address] [place] [address]- Care Team Providers Care Toy Designer Name Role Phone Not on Staff, PCP Primary Care Physician Unavail able Encounter [facility] Date(s): 02/09/20 - 02/19/20 [facility] [address] [place] [address]- [facility] Attending Physician: Sruthi Blanco Admitting Physician: Admtr, Ar8 Referring Physician: Admtr, Ar8 Allergies, Adverse Reactions, Alerts Substance Reaction Severity Status TraMADol Hydrochloride Activ e
--- OUTSIDE RECORDS SUMMARY | 2024-03-20 00:58 | XMS_ITS | Continuity of Care Document ---
Author Organization [facility] Address [address] [place] [address] ve [address] [place] [address]- Care Team Providers Care Tank Builder Supervisor Name Role Phone Not on Staff, PCP Primary Care Physician Unavail able Encounter [facility] Date(s): 01/31/20 - 03/10/20 [facility] [address] [place] [address]- [facility] Attending Physician: Shaan Lopes MD Allergies, Adverse Reactions, Alerts Substance Reaction Severity Status TraMADol Hydrochloride Activ e
--- OUTSIDE RECORDS SUMMARY | 2024-03-20 00:58 | XMS_ITS | Continuity of Care Document ---
Author Organization [facility] Address [address] [place] [address]i ve [address] [place] [address]- Care Team Providers Care Orthotic Practitioner Name Role Phone Not on Staff, PCP Primary Care Physician Unavail able Encounter [facility] Date(s): 02/24/20 - 03/02/20 [facility] [address] [place] [address]- [facility] Attending Physician: Shaan Lopes MD Allergies, Adverse Reactions, Alerts Substance Reaction Severity Status TraMADol Hydrochloride Activ e
--- OUTSIDE RECORDS SUMMARY | 2024-03-20 00:58 | XMS_ITS | Continuity of Care Document ---
Author Organization [facility] Address [address] [place] [address]- Care Team Providers Care File Drawer Finisher Name Role Phone Not on Staff, PCP Primary Care Physician Unavail able Encounter [facility] Date(s): 01/26/20 - 01/30/[address] [address]- [facility] Discharge Disposition: A-D/C Home Attending Physician: Raysa Davila MD Admitting Physician: Giovanny Gómez MD Referring Physician: Giovanny Gómez MD Allergies, Adverse Reactions, Alerts Substance Reaction Severity Status TraMADol Hydrochloride Activ e Medications ibuprofen 400 mg oral tablet 800 mg, 2, tablet, By Mouth, Every 4 hours, PRN, for 7 days, # 84 tablet, Refills 0, Tot. Refills 0, Acute 02/06/20 13:32:00 EDT, for pain, 01/30/20 13:32:00 EDT, Route to Pharmacy Electronically, [facility], 155, cm, 01/30/20 11:57:00 E... Start Date: 01/30/20 Stop Date: 02/06/20 Status: Ordered Keflex monohydrate 500 mg oral capsule 1 capsule = 500 mg, By Mouth, 4 times a day, for 10 days, # 40 capsule, 0 Refills, Acute 02/09/20 13:33:00 EDT, 01/30/20 13:33:00 EDT, Capsule, [facility], 155, cm, 01/30/20 11:57:00 EDT, Height, 82.5, kg, 01/26/20 14:47:00 EDT, Dry Weight Start Date: 01/30/20 Stop Date: 02/09/20 Status: Ordered Tylenol 325 mg oral capsule 2 capsule = 650 mg, By Mouth, Every 4 hours, PRN as needed for pain, # 90 capsule, 0 Refills, Acute02/12/20 12:00:00 EDT, 01/30/20 13:28:00 EDT, Capsule, [facility], 155, cm, 01/30/20 11:57:00 EDT, Height, 82.5, kg, 01/26/20 14:47:00 ED... Start Date: 01/30/20 Stop Date: 02/12/20 Status: Ordered Results Orders for Microbiology Reports Name Date AFB Culture w/ AFB Smear, Nonrespiratory (ACID FAST CULT,NON-RESP) 01/26/20 Anaerobic Culture (ANAEROBIC CULTURE) 10/06 Anaerobic Culture (ANAEROBIC CULTURE) 10/06 Fungal Culture, Nonrespiratory (FUNGAL C ULT,NON-RESPIRATORY) 01/26/20 Fungal Culture, Nonrespiratory (FUNGAL C ULT,NON-RESPIRATORY) 01/26/20 Wound Deep Culture w/ Gram Smear (DEEP W OUND CULTURE) 01/26/20 Wound Deep Culture w/ Gram Smear (DEEP W OUND CULTURE) 01/26/20 Blood Culture 01/26/20 Blood Culture #2 01/26/20 Microbiology Reports TEST:Anaerobic Culture STATUS:Unauthenticated BODY SITE: SOURCE:PUS COLLECTED DATE/TIME:01/26/20 7:14 PM Anaerobic Culture SPECIMEN DESCRIPTION : PUS RIGHT FLEXOR TENDON SHEATH SPECIAL REQUESTS : PLEASE NOTE THAT CULTURE RESULTS MAY BE COMPROMISED BY THE LIMITED VOLUME OF SPECIMEN RECEIVED CULTURE : NO ANAEROBES ISOLATED SO FAR. REPORT STATUS : PRELIMINARY REPORT TEST:Anaerobic Culture STATUS:Unauthenticated BODY SITE: SOURCE:PUS COLLECTED DATE/TIME:01/26/20 7:14 PM Anaerobic Culture SPECIMEN DESCRIPTION : PUS DORSUM RIGHT RING FINGER SPECIAL REQUESTS : PLEASE NOTE THAT CULTURE RESULTS MAY BE COMPROMISED BY THE LIMITED VOLUME OF SPECIMEN RECEIVED CULTURE : NO ANAEROBES ISOLATED SO FAR. REPORT STATUS : PRELIMINARY REPORT TEST:Deep Wound Culture STATUS:Auth (Verified) BODY SITE: SOURCE:PUS COLLECTED DATE/TIME:01/26/20 7:14 PM Deep Wound Culture SPECIMEN DESCRIPTION : PUS DORSUM RIGHT RING FINGER SPECIAL REQUESTS : PLEASE NOTE THAT CULTURE RESULTS MAY BE COMPROMISED BY THE LIMITED VOLUME OF SPECIMEN RECEIVED GRAM STAIN : 3+ POLYMORPHONUCLEAR LEUKOCYTES 1+ SQ.EPITHELIAL CELLS 1+ GRAM POSITIVE COCCI CULTURE : 2+ STAPHYLOCOCCUS AUREUS. REPORT STATUS : FINAL 01/29/2020 ORGANISM 2+ STAPHYLOCOCCUS AUREUS. METHOD MIN. INHIB. CONC. (MCG/ML) CIPROFLOXACIN SUSCEPTIBLE CLINDAMYCIN SUSCEPTIBLE ERYTHROMYCIN RESISTANT INDUCIBLE CLINDAMYCI NEGATIVE LEVOFLOXACIN SUSCEPTIBLE OXACILLIN SUSCEPTIBLE PENICILLIN RESISTANT RIFAMPIN SUSCEPTIBLE RIFAMPIN RIFAMPIN SHOULD NOT BE USED ALONE FOR ANTIMICROBIAL RIFAMPIN THERAPY. TETRACYCLINE SUSCEPTIBLE TRIMETH/SULFAMETHOX SUSCEPTIBLE VANCOMYCIN SUSCEPTIBLE TEST:Deep Wound Culture STATUS:Auth (Verified) BODY SITE: SOURCE:PUS COLLECTED DATE/TIME:01/26/20 7:14 PM Deep Wound Culture SPECIMEN DESCRIPTION : PUS RIGHT FLEXOR TENDON SHEATH SPECIAL REQUESTS : PLEASE NOTE THAT CULTURE RESULTS MAY BE COMPROMISED BY THE LIMITED VOLUME OF SPECIMEN RECEIVED GRAM STAIN : 2+ RBC'S 1+ POLYMORPHONUCLEAR LEUKOCYTES NO ORGANISMS SEEN CULTURE : NO GROWTH 2 DAYS REPORT STATUS : FINAL 01/29/2020 TEST:Fungal Culture, Non-Respiratory STATUS:Unauthenticated BODY SITE: SOURCE:PUS COLLECTED DATE/TIME:01/26/20 7:14 PM Fungal Culture, Non-Respiratory SPECIMEN DESCRIPTION : PUS DORSUM RIGHT RING FINGER SPECIAL REQUESTS : NONE DIRECT EXAM : NO FUNGAL ELEMENTS OBSERVED REPORT STATUS : PRELIMINARY REPORT TEST:Fungal Culture, Non-Respiratory STATUS:Unauthenticated BODY SITE: SOURCE:PUS COLLECTED DATE/TIME:01/26/20 7:14 PM Fungal Culture, Non-Respiratory SPECIMEN DESCRIPTION : PUS RIGHT FLEXOR TENDON SHEATH SPECIAL REQUESTS : NONE DIRECT EXAM : NO FUNGAL ELEMENTS OBSERVED REPORT STATUS : PRELIMINARY REPORT TEST:AFB Culture w/AFB Smear, Non-Respiratory STATUS:Unauthenticated BODY SITE: SOURCE:PUS COLLECTED DATE/TIME:01/26/20 7:14 PM AFB Culture w/AFB Smear, Non-Respiratory SPECIMEN DESCRIPTION : PUS DORSUM RIGHT RING FINGER SPECIAL REQUESTS : NONE DIRECT EXAM : NO ACID FAST BACILLI SEEN ON DIRECT SMEAR, TEST PERFORMED AT [facility] CULTURE : SPECIMEN SENT TO [facility] [facility], [place], [place] REPORT STATUS : PRELIMINARY REPORT TEST:Blood Culture STATUS:Unauthenticated BODY SITE: SOURCE:Blood COLLECTED DATE/TIME:01/26/20 4:21 PM Blood Culture SPECIMEN DESCRIPTION : BLOOD NO SITE SPECIAL REQUESTS : NONE CULTURE : NO GROWTH 4 DAYS REPORT STATUS : PRELIMINARY REPORT TEST:Blood Culture, Second Order STATUS:Unauthenticated BODY SITE: SOURCE:Blood COLLECTED DATE/TIME:01/26/20 4:21 PM Blood Culture, Second Order SPECIMEN DESCRIPTION : BLOOD NO SITE SPECIAL REQUESTS : NONE CULTURE : NO GROWTH 4 DAYS REPORT STATUS : PRELIMINARY REPORT Radiology Reports * Exam Date Time Procedure Performing Provider Status 01/26/20 4:49 PM Chest 2 Views Frontal and Lat Becki [place]; Auth (Verified) Notes: (Chest 2 Views Frontal and Lat) Reason For Exam: pre op;Other: RESULT: Chest 2 Views Frontal and Lat Chest 2 Views Frontal and Lat Reason: Other:; pre op; Clinical Question(s): Pneumonia COMPARISON: None. FINDINGS: No acute process IMPRESSION: No acute abnormality. WSN: [id number] Ordering Physician: Raysa Davila Dictated By: Jordan Vyas MD Dictated Date/Time: 01/26/20 4:50 pm Reviewed By: Jordna Vyas MD Signed By: Jordan Vyas MD Signed Date/Time: 01/26/20 4:50 pm Transcribed By: GOLDY Transcribed Date/Time: 01/26/20 4:49 pm Vital Signs Most recent to oldest [Reference Range]: 1 2 3 Height 155 cm (01/30/20 11:57 AM) 155 cm (01/30/20 7:22 AM) 155 cm (01/30/20 3:46 AM) Weight 82.5 kg (01/26/20 6:04 PM) 82.5 kg (01/26/20 2:47 PM) Oxygen Saturation [94-100 %] 96 % (01/30/20 11:57 AM) 96 % (01/30/20 7:22 AM) 96 % (01/30/20 3:46 AM) Pulse Rate [55-90 bpm] 77 bpm (01/30/20 11:57 AM) 81 bpm (01/30/20 7:22 AM) 74 bpm (01/30/20 3:46 AM) Body Mass Index [18.5-24.99] 34.34 *>HHI* (01/26/20 6:04 PM) 34.34 *>HHI* (01/26/20 2:47 PM) Blood Pressure [90-138/55-84 mm Hg] 139/98mm Hg *H* (01/30/20 11:57 AM) 143/102mm Hg *H* (01/30/20 7:22 AM) 150/72mm Hg *H* (01/30/20 3:46 AM) Respiratory Rate [16-30 br/min] 18 br/min (01/30/20 12:36 PM) 18 br/min (01/30/20 12:36 PM) 18 br/min (01/30/20 11:57 AM) Temperature [96.8-100.4 DegF] 98.8 DegF (01/30/20 11:57 AM) 98.0 DegF (01/30/20 7:22 AM) 98.0 DegF (01/30/20 3:46 AM) Liters per Minute 2 L/min (01/26/20 8:30 PM) 3 L/min (01/26/20 8:15 PM) 6 L/min (01/26/20 8:00 PM) Mode of Delivery (Oxygen) Room air (01/30/20 11:57 AM) Room air (01/30/20 7:22 AM) Room air (01/30/20 3:46 AM) Blood pressure sites Arm, left (01/30/20 3:46 AM) Arm, left (01/29/20 8:06 PM) Arm, right (01/29/20 4:20 PM) Temperature Route Oral (01/30/20 11:57 AM) Oral (01/30/20 7:22 AM) Oral (01/30/20 3:46 AM) Dry Weight 82.5 kg (01/26/20 2:47 PM) Sensory deficits None (01/26/20 2:47 PM) Mobility assistance Independent (01/26/20 2:47 PM)
--- OUTSIDE RECORDS SUMMARY | 2024-03-20 00:58 | XMS_ITS | Continuity of Care Document ---
Author Organization [facility] ter Address [address] [place] [id number]- Care Team Providers Care Tenon Machine Operator Name Role Phone Ken RODRIGUEZ MD, Jamal Madden Primary Care Physician [phone] Encounter [facility] Date(s): 05/28/20 - 05/30/[address] [address]- [facility] Encounter Diagnosis Ground glass opacity present on imaging of lung(Final) - 05/27/20 Discharge Disposition: A-D/C Home Attending Physician: Radha MEZA, Chela Acevedo Admitting Physician: Oscar Hendrix MD Referring Physician: Not on Staff, Referring MD Allergies, Adverse Reactions, Alerts Substance Reaction Severity Status TraMADol Hydrochloride Activ e Medications acetaminophen 325 mg oral tablet 650 mg, 2, tablet, By Mouth, Every 8 hours, PRN, Refills 0, Maintenance, Pain , Mild, 05/30/20 11:24:00 EDT Start Date: 05/30/20 Status: Ordered acetaminophen/butalbital/caffeine 300 mg-50 mg-40 mg oral capsule See Instructions, PRN Headache, By Mouth Every 4 hours, # 20 capsule, 0 Refills, Acute 06/30/20 12:00:00 EDT, 05/30/20 11:24:00 EDT, Capsule, [facility], By Mouth Every 4 hours,PRN:Headache, 156, cm, 05/30/20 7:55:00 EDT, Height, 84.8, k... Start Date: 05/30/20 Stop Date: 06/30/20 Status: Ordered albuterol 90 mcg/inh inhalation aerosol 180 mcg, 2, puffs, Inhalation, 4 times a day, # 1 each, 0 Refills, Maintenance Start Date: 05/30/20 Status: Ordered Ativan 0.5 mg oral tablet 1 tablet = 0.5 mg, By Mouth, Every 4 hours, PRN Anxiety, # 15 tablet, 0 Refills, Acute 06/30/20 12:00:00 EDT, 05/30/20 11:26:00 EDT, Tablet, [facility], 156, cm, 05/30/20 7:55:00 EDT, Height, 84.8, kg, 05/27/20 20:48:00 EDT, Dry Weight Start Date: 05/30/20 Stop Date: 06/30/20 Status: Ordered Carafate 1 gm oral tablet 1 Gm, 1, tablet, By Mouth, 3 times a day before meals and bedtime, # 120 tablet, Refills 0, Tot. Refills 0, Maintenance, 05/30/20 11:29:00 EDT, Route to Pharmacy Electronically, [facility], 156, cm, 05/30/20 7:55:00 EDT, Height, 84.8, kg... Start Date: 05/30/20 Status: Ordered cyclobenzaprine 5 mg oral tablet 1 tablet = 5 mg, By Mouth, 2 times a day, 1 tablet twice a day for 5 days, # 10 tablet, 0 Refills, Acute 06/04/20 12:00:00 EDT, 05/30/20 11:25:00 EDT, Tablet, [facility], 156, cm, 05/30/20 7:55:00 EDT, Height, 84.8, kg, 05/27/20 20:48:00... Start Date: 05/30/20 Stop Date: 06/04/20 Status: Ordered levoFLOXacin 500 mg oral tablet 1 tablet = 500 mg, By Mouth, Every 24 hours, # 5 tablet, 0 Refills, Acute 06/04/20 12:00:00 EDT, 05/30/20 11:26:00 EDT, Tablet, [facility], 156, cm, 05/30/20 7:55:00 EDT, Height, 84.8, kg, 05/27/20 20:48:00 EDT, Dry Weight Start Date: 05/30/20 Stop Date: 06/04/20 Status: Ordered metroNIDAZOLE 500 mg oral tablet 1 tablet = 500 mg, By Mouth, Every 8 hours, for 5 days, # 15 tablet, 0 Refills, Acute 06/04/20 11:27:00 EDT, 05/30/20 11:27:00 EDT, Tablet, [facility], 156, cm, 05/30/20 7:55:00 EDT, Height, 84.8, kg, 05/27/20 20:48:00 EDT, Dry Weight Start Date: 05/30/20 Stop Date: 06/04/20 Status: Ordered Nicoderm C-Q 21 mg/24 hr transdermal film, extended release 1 patch, Topically, Daily, # 30 patch, 0 Refills, Acute 06/30/20 12:00:00 EDT, 05/30/20 11:27:00 EDT, Patch, [facility], 156, cm, 05/30/20 7:55:00 EDT, Height, 84.8, kg, 05/27/20 20:48:00 EDT, Dry Weight Start Date: 05/30/20 Stop Date: 06/30/20 Status: Ordered ondansetron 4 mg oral tablet, disintegrating = 4 mg, By Mouth, Every 6 hours, PRN Nausea & Vomiting, # 15 tablet, 0 Refills, Maintenance, 05/30/20 11:27:00 EDT, Tablet, [facility], 156, cm, 05/30/20 7:55:00 EDT, Height, 84.8, kg, 05/27/20 20:48:00 EDT, Dry Weight Start Date: 05/30/20 Status: Ordered predniSONE 20 mg oral tablet 1 tablet = 20 mg, By Mouth, Daily, for 5 days, # 5 tablet, 0 Refills, Acute 06/04/20 11:28:00 EDT, 05/30/20 11:28:00 EDT, Tablet, [facility], 156, cm, 05/30/20 7:55:00 EDT, Height, 84.8, kg, 05/27/20 20:48:00 EDT, Dry Weight Start Date: 05/30/20 Stop Date: 06/04/20 Status: Ordered Protonix 40 mg oral delayed release tablet = 40 mg, By Mouth, Every 12 hours, 1 tablet twice daily for 2 weeks, then 1 tablet daily, # 60 tablet, 0 Refills, Maintenance, 05/30/20 11:28:00 EDT, EC Tablet, 156, cm, 05/30/20 7:55:00 EDT, Height,84.8, kg, 05/27/20 20:48:00 EDT, Dry Weight Start Date: 05/30/20 Status: Ordered saccharomyces boulardii lyo 250 mg oral capsule 1 capsule = 250 mg, By Mouth, 2 times a day, for 7 days, # 14 capsule, 0 Refills, Acute 06/06/20 11:28:00 EDT, 05/30/20 11:28:00 EDT, Capsule, [facility], 156, cm, 05/30/20 7:55:00 EDT,Height, 84.8, kg, 05/27/20 20:48:00 EDT, Dry Weight Start Date: 05/30/20 Stop Date: 06/06/20 Status: Ordered Results Radiology Reports * Exam Date Time Procedure Performing Provider Status 05/27/20 6:17 AM Chest 2 Views Frontal and Lat Jov[facility]; Jerry (Verified) Notes: (Chest 2 Views Frontal and Lat) Reason For Exam: Shortness of Breath, Fever;Other: RESULT: Chest 2 Views Frontal and Lat Chest 2 Views Frontal and Lat Refer to EMR; Reason: Other:; Shortness of Breath, Fever; Clinical Question(s): Pneumonia; Hx of Present Illness: pt sttates she was sick for 3 weeks, took a lot of peptobismol and excedrin and now vomtiing. COMPARISON: 01/26/2020 FINDINGS: LINES AND TUBES: None. LUNGS AND PLEURA: Patchy groundglass opacities noted throughout both mid and lower lung allen. No pleural effusion. No pneumothorax. HEART, MEDIASTINUM AND ASHANTI: Heart is normal in size. Normal mediastinal and hilar contour. BONES AND SOFT TISSUES: No acute abnormality. IMPRESSION: Patchy groundglass infiltrates bilaterally mid and lower lung allen. Consider viral/atypical pneumonia, versus inflammatory lung disease. WSN: [id number] Ordering Physician: Temi Ortiz Dictated By: Luis MEZA, Asad Hercules Dictated Date/Time: 05/27/20 11:45 a Reviewed By: Asad Smith MD Signed By: Asad Smith MD Signed Date/Time: 05/27/20 11:45 am Transcribed By: CSChano Transcribed Date/Time: 05/27/20 11:42 am Vital Signs Most recent to oldest [Reference Range]: 1 2 3 Height 156 cm (05/30/20 7:55 AM) 156 cm (05/29/20 11:44 AM) 156 cm (05/29/20 7:50 AM) Weight 84.8 kg (05/27/20 8:45 PM) Oxygen Saturation [94-100 %] 96 % (05/30/20 7:55 AM) 95 % (05/30/20 1:00 AM) 94 % (05/29/20 7:00 PM) Pulse Rate [55-90 bpm] 65 bpm (05/30/20 7:55 AM) 80 bpm (05/30/20 1:00 AM) 83 bpm (05/29/20 7:00 PM) Body Mass Index [18.5-24.99] 34.85 *>HHI* (05/27/20 8:45 PM) Blood Pressure [90-138/55-84 mm Hg] 146/78mm Hg *H* (05/30/20 7:55 AM) 124/70mm Hg (05/30/20 1:00 AM) 122/68mm Hg (05/29/20 7:00 PM) Respiratory Rate [16-30 br/min] 16 br/min (05/30/20 9:50 AM) 18 br/min (05/30/20 8:50 AM) 18 br/min (05/30/20 7:55 AM) Temperature [96.8-100.4 DegF] 97.3 DegF (05/30/20 7:55 AM) 97.8 DegF (05/30/20 1:00 AM) 98.5 DegF (05/29/20 7:00 PM) Liters per Minute 2 L/min (05/27/20 6:18 PM) Mode of Delivery (Oxygen) Room air (05/30/20 7:55 AM) Room air (05/30/20 1:00 AM) Room air (05/29/20 7:00 PM) Blood pressure sites Arm, left (05/30/20 7:55 AM) Arm, left (05/30/20 1:00 AM) Arm, left (05/29/20 7:00 PM) Temperature Route Oral (05/30/20 7:55 AM) Oral (05/30/20 1:00 AM) Oral (05/29/20 7:00 PM) Dry Weight 84.8 kg (05/27/20 8:45 PM) Weight Obtained Via Bed scale (05/27/20 8:45 PM) Social History Social History Type Response Sex Female
[2024-03-20 01:08] LABS: Basophils Absolute Auto 0.1 X10*3/uL (0.0-0.2); Basophils Percent Auto 0.3 % (0-2); Eosinophils Absolute Auto 0.1 X10*3/uL (0.0-0.4); Eosinophils Percent Auto 0.8 % (0-4); Hematocrit 31.7 % (37.0-47.0); Hemoglobin 9.5 g/dl (12.0-16.0); Imm Gran Pct Auto 0.6 % (0.0-0.4); Lymphocytes Absolute Auto 1.6 X10*3/uL (1.2-4.9); Lymphocytes Percent Auto 10.2 % (20-40); MANUAL DIFF FLAG SCAN; Mean Corpuscular Hemoglobin 23.1 pg (27.0-33.0); Mean Corpuscular Volume 76.9 fL (80.0-98.0); Mean Platelet Volume 10.8 fL (9.4-12.3); Monocytes Absolute Auto 1.5 X10*3/uL (0.1-1.2); Monocytes Percent Auto 9.6 % (2-11); Neutrophils Absolute Auto 12.4 x10*3/uL (2.0-8.3); Neutrophils Percent Auto 78.5 % (45-73); Platelet Count 231 X10*3/uL (160-400); Red Blood Count 4.12 X10*6/uL (4.20-5.50); Red Cell Distribution Width 22.7 % (11.0-16.0); SCAN SMEAR FLAG 1; White Blood Count 15.8 X10*3/uL (4.8-10.8)
[2024-03-20 01:09] LABS: Appearance Urine Clear; Color Urine Yellow; Glucose Urine UA Negative (Negative); Leukocyte Esterase Urine Negative (Negative); Nitrite Urine Negative (Negative); Specific Gravity - Urine 1.015 (1.005-1.025); Urine Blood Negative (Negative); Urine Ketones 15 mg/dL (Negative); Urine Protein Trace mg/dL (Neg-Trace)
--- NOTE | 2024-03-20 01:11 | ED_ITS ---
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 The patient was initially seen by me on 03/17/2024 and at that time she told me that she was drinking multiple shots of Fireball whiskey prior to onset of her pancreatitis.. She was in severe pain and required high doses of Dilaudid in order to control her pain therefore was admitted to the hospital for further management. I did review her hospital course. She was treated with bowel rest, IV fluids and IV Dilaudid and she seemed to improve. Her lipase normalized. She tolerated eating. The patient states that she was feeling better but her pain was not completely resolved by the time she was discharged yesterday. She states that since being home she has not been able to eat secondary to her pain. She states that she has persistent nausea with 1 episode of vomiting. She states that her pain is a constant, burning, sharp, knife-like pain in epigastric and lower abdomen. Her pain is 10/10. She denied fever but states she did developed chills. She had 1 bowel movement at home which she states was dark but not black or bloody. Related Data Home Medications ?Medication ?Instructions ?Recorded ?Confirmed buprenorphine 12 mg-naloxone 3 mg 2 film sublingual DAILY 03/17/24 03/17/24 sublingual film (Suboxone) omeprazole 20 mg capsule,delayed 20 mg PO DAILY 03/17/24 03/17/24 release Previous Rx's ?Medication ?Instructions ?Recorded folic acid 1 mg tablet 1 mg PO DAILY #30 tabs 03/19/24 oxycodone 5 mg tablet 5 mg PO BID PRN pain #10 tabs 03/19/24 thiamine HCl (vitamin B1) 100 mg 100 mg PO DAILY #30 tabs 03/19/24 tablet Allergies Allergy/AdvReac Type Severity Reaction Status Date / Time ibuprofen [From Motrin] Allergy Unknown HIVES Verified 03/20/24 00:45 tramadol [Tramadol] AdvReac Unknown NAUSEA Verified 03/20/24 00:45 Review of Systems Review of Systems Yes all other systems are reviewed and are negative [facility] Past Medical History [facility] Narrative: Social history: She lives with her . She states she did not drink alcohol since leaving the hospital. Medical History 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 Shelia-Gee tear FH: cholecystectomy Surgical History History of biopsy Social History Social History Alcohol intake: current Alcohol intake frequency: holidays/special occasions only Patient Tobacco Use Status: Current everyday Tobacco user Tobacco use type: Cigarette Cigarette Packs Per Day: 1 Cigarettes Per Day: 20.0 Smoked in Last 30 Days: No Advance Directives: No Advance Directives Information Provided: Yes Do you have a plan to hurt others: No Plan Patient : No service: No Physical Exam ED Vital Signs: Vital Signs - 24 hr 03/20/24 00:43 Temperature 98.0 F Pulse Rate 98 Respiratory Rate 18 Blood Pressure 130/106 H Pulse Oximetry 100 Oxygen Delivery Method Room Air BMI result Body Mass Index 29.3 Vital signs revealed an elevated blood pressure of 130/106 Exam: General: Awake, alert, appears to be in distress secondary to her abdominal pain, she has holding a pillow to her abdomen in his rocking back and forth. Head: Normocephalic, atraumatic EENT: PERRL, Lids normal, sclera normal, conjunctiva normal, nose normal , ears normal, throat without erythema or exudates Neck: Supple, no adenopathy Lung: breath sounds symmetric, no wheezing, rales or rhonchi Chest: symmetric movement, nontender Heart: regular rate and rhythm, normal S1, S2 no murmurs or rubs Abdomen: soft, moderate to severe epigastric tenderness, moderate to severe suprapubic tenderness with mild diffuse tenderness, she has significant voluntary guarding, no rebound Back: no vertebral tenderness, no CVAT Extremities: no deformities, moves all extremities symmetrically Neuro: Awake, alert, oriented, normal speech, cranial nerves intact, moves all extremities symmetrically Medical Decision Making Medical Decision Making [facility] Narrative: 49-year-old female with a history of metastatic stomach cancer status post partial gastrectomy, Shelia-Gee tear, cholecystectomy who was hospitalized here from 03/17/2024 until 03/19/2024 for acute pancreatitis with a lipase of 374 and inflammatory changes consistent with pancreatitis on her CT scan. She was discharged yesterday afternoon and since being home she has had chills, nausea, 1 episode of vomiting, and increasing abdominal pain to the point where the pain is 10/10. She denies drinking any alcohol. Vital signs did reveal elevated blood pressure. She appeared to be in significant distress, she had moderate to severe epigastric and suprapubic tenderness with mild diffuse tenderness and voluntary guarding. Differential diagnosis: ?Includes but is not limited to pancreatitis, perforation, electrolyte abnormalities, anemia Following evaluation was ordered: CBC, CMP, triglycerides, lipase, COVID-19, influenza, RSV, CT scan of the abdomen pelvis with IV contrast Patient was initially treated with the following: Dilaudid 2 mg IV, Benadryl 50 mg IV V, Reglan 10 mg IV, lactated Ringer's Course: 01:41 My interpretation patient's laboratory evaluation is as follows: WBC elevated 15,800, microcytic anemia with an H&H of 9.5 and 31.7-unchanged from previous value. CMP revealed an elevated AST of 42. Patient's lipase was normal 54. Urinalysis was positive for ketones, microscopic revealed 0-2 RBCs, 0-5 WBCs, 6- 10 squamous cells, trace bacteria 02:35 At the end of my shift, the CT scan is pending. The patient's care was turned over to my colleague, Dr. Erlinda Polo. Admission/Observation Consideration of admission/observation: Escalation of care including admission/observation considered Lab Data [facility] Lab Attestation statement: I reviewed the patient's lab results. 03/20/24 01:02 03/20/24 01:02 Labs: Lab Results 03/20/24 03/20/24 Range/Units 01:02 01:30 WBC 15.8 H (4.8-10.8) X10*3/uL RBC 4.12 L (4.20-5.50) X10*6/uL Hgb 9.5 L (12.0-16.0) g/dl Hct 31.7 L (37.0-47.0) % MCV 76.9 L (80.0-98.0) fL MCH 23.1 L (27.0-33.0) pg MCHC 30.0 L (31.0-35.0) g/dl RDW 22.7 H (11.0-16.0) % Plt Count 231 (160-400) X10*3/uL MPV 10.8 (9.4-12.3) fL Immature Gran % (Auto) 0.6 H (0.0-0.4) % Neut % (Auto) 78.5 H (45-73) % Lymph % (Auto) 10.2 L (20-40) % [place] % (Auto) 9.6 (2-11) % Eos % (Auto) 0.8 (0-4) % Baso % (Auto) 0.3 (0-2) % Lymph # (Auto) 1.6 (1.2-4.9) X10*3/uL [place] # (Auto) 1.5 H (0.1-1.2) X10*3/uL Eos # (Auto) 0.1 (0.0-0.4) X10*3/uL Baso # (Auto) 0.1 (0.0-0.2) X10*3/uL Abs Immat Gran (auto) 0.10 H (0.00-0.03) X10*3/uL Absolute Neuts (auto) 12.4 H (2.0-8.3) x10*3/uL Absolute Nucleated RBC 0.000 (0.0-0.012) X10*3/uL Nucleated RBC % (auto) 0.0 (0.0-0.2) /100WBC Smear Tech's Comments VERIFIED Sodium 138 (135-145) mmol/L Potassium 3.7 (3.3-5.1) mmol/L Chloride 105 (96-108) mmol/L Carbon Dioxide 21 L (22-29) mmol/L Anion Gap 16 (12-20) BUN 5 L (9-16) mg/dL Creatinine 0.63 (0.5-1.4) mg/dL Estim Creat Clear Calc 98.9 Estimated GFR > 60 Random Glucose 84 (60-115) mg/dL Calcium 9.1 (8.4-10.2) mg/dL Total Bilirubin 0.3 (0.0-1.0) mg/dL AST 42 H (5-31) U/L ALT 24 (0-31) U/L Alkaline Phosphatase 88 (39-117) U/L Total Protein 7.6 (6.5-8.0) g/dL Albumin 3.4 L (3.5-5.0) g/dL Triglycerides 90 Cancelled (<150) mg/dL Lipase 54 (8-78) U/L Urine Color Yellow Urine Appearance Clear Urine pH 6.0 (5.0-9.0) Ur Specific [place] 1.015 (1.005-1.025) Urine Protein Trace (Neg-Trace) mg/dL Urine Glucose (UA) Negative (Negative) mg/dL Urine Ketones 15 (Negative) mg/dL Urine Blood Negative (Negative) Urine Nitrite Negative (Negative) Ur Leukocyte Esterase Negative (Negative) Urine RBC 0-2 (0-2) /HPF Urine WBC 0-5 (0-5) /HPF Ur Squamous Epith Cells 6-10 (0-2) /HPF Urine Bacteria Trace (None Seen) Hyaline Casts 0-2 (0-2) /LPF Ethyl Alcohol < 10 mg/dL Influenza Type A (PCR) NEGATIVE (Negative) Influenza Type B (PCR) NEGATIVE (Negative) RSV RNA Qual (PCR) NEGATIVE (Negative) SARS-CoV-2 RNA (RT-PCR) NEGATIVE (Negative) Independent Historian Clinical information obtained from an independent historian. History obtained from or confirmed by: Spouse Chronic Conditions Patient?s care impacted by: Other (Alcohol use disorder) Medications Administered Discontinued Medications Generic Name Dose Route Start Last Admin Trade Name Freq PRN Reason Stop Dose Admin Diphenhydramine HCl 50 mg 03/20/24 01:21 03/20/24 01:48 Diphenhydramine Hcl 50 Mg/Ml Vial IVPUSH 03/20/24 01:22 50 mg ONCE STA Administration Hydromorphone HCl 2 mg 03/20/24 01:21 03/20/24 01:47 Hydromorphone Hcl 1 Mg/Ml Syringe IVPUSH 03/20/24 01:22 2 mg ONCE STA Administration Protocol Lactated Ringer's 1,000 mls @ 999 mls/hr 03/20/24 01:45 03/20/24 01:48 Lr IV 03/20/24 02:45 999 mls/hr .Q1H1M AYLEEN Administration Iohexol 85 ml 03/20/24 01:59 03/20/24 02:00 Iohexol 350 Mg/Ml 100 Ml Infus..Btl IV 03/20/24 02:00 85 ml ONCE ONE Administration Metoclopramide HCl 10 mg 03/20/24 01:21 03/20/24 01:48 Metoclopramide Hcl 10 Mg/2 Ml Vial IVPUSH 03/20/24 01:22 10 mg ONCE STA Administration Discharge Plan Discharge Clinical Impression: Acute alcoholic pancreatitis Patient Disposition: Still a Patient Prescriptions: No Action omeprazole 20 mg Capsule,Delayed Release(Dr/Ec) 20 mg PO DAILY buprenorphine-naloxone [Suboxone] 12-3 mg film 2 film sublingual DAILY thiamine HCl (vitamin B1) 100 mg tablet 100 mg PO DAILY Qty: 30 0RF folic acid 1 mg tablet 1 mg PO DAILY Qty: 30 0RF oxycodone 5 mg tablet 5 mg PO BID PRN (Reason: pain) Qty: 10 0RF Rx Instructions: Partial Fill upon patient request. Print Language: Swazi
[2024-03-20 01:22] LABS: Alanine Aminotransferase 24 U/L (0-31); Albumin Level 3.4 g/dL (3.5-5.0); Alkaline Phosphatase 88 U/L (39-117); Anion Gap 16 (12-20); Aspartate Amino Transferase 42 U/L (5-31); Bilirubin Total 0.3 mg/dL (0.0-1.0); Blood Urea Nitrogen 5 mg/dL (9-16); Calcium 9.1 mg/dL (8.4-10.2); Carbon Dioxide 21 mmol/L (22-29); Chloride 105 mmol/L (96-108); Creatinine Clr Calc Pharmacy 98.9; Estimated Glomerular Filt Rate > 60; Glucose Random 84 mg/dL (60-115); Lipase 54 U/L (8-78); Potassium 3.7 mmol/L (3.3-5.1); Sodium 138 mmol/L (135-145); Total Protein 7.6 g/dL (6.5-8.0)
[2024-03-20 01:27] LABS: Bacteria Urine Trace (None Seen); Hyaline Casts Urine 0-2 /LPF (0-2); RBC Urine 0-2 /HPF (0-2); WBC Urine 0-5 /HPF (0-5)
[2024-03-20 01:38] LABS: SLIDE REVIEW VERIFIED
[2024-03-20 01:46] LABS: Influenza A PCR NEGATIVE (Negative); Influenza B PCR NEGATIVE (Negative); Resp Syncy Virus RNA Qual PCR NEGATIVE (Negative); SARS COV2 PCR INHOUSE NEGATIVE (Negative)
[2024-03-20 01:47] LABS: Triglycerides 90 mg/dL (<150)
[2024-03-20] MEDS: HYDROmorphone HCl 1 MG/ML SYRINGE 2 MG IVPUSH (01:47)
[2024-03-20] MEDS: Lactated Ringers 1,000 ML 999 ML IV (01:48)
[2024-03-20] MEDS: Metoclopramide HCl 10 MG/2 ML VIAL IVPUSH (01:48)
[2024-03-20] MEDS: diphenhydrAMINE HCL 50 MG/ML VIAL IVPUSH (01:48)
[2024-03-20 01:59] LABS: Ethanol < 10 mg/dL
[2024-03-20] MEDS: iohexoL 350 MG/ML 100 ML INFUS..BTL 85 ML IV (02:00)
--- NOTE | 2024-03-20 04:32 | PC.NURSE ---
Dr. Barnes verbal order to order and administer 2mg of Dialudid
[2024-03-20] MEDS: HYDROmorphone HCl 2 MG/ML VIAL IVPUSH ×8 (04:36→22:18)
--- NOTE | 2024-03-20 04:47 | P.HPHOSP_ITS ---
History of Present Illness Date of Service: 03/20/24 Attending physician on admission: Molly Barnes Chief Complaint: Abdominal pain Pinky Cadet is a 49 years old woman with past medical history significant for metastatic stomach CA s/p partial gastrectomy, cholecystectomy, Shelia-Gee tear and Suboxone for chronic pain presents to the emergency department complaining of severe upper abdominal pain that has been getting worsening she was discharged yesterday from the hospital. Pain is described as sharp and radiating to the back. Pain intensity is 10/10. Patient was discharged on oxycodone which has not been helping for the pain. She also report vomiting. Did not report diarrhea, constipation, fevers or chills. She was hospitalized after she was found to have acute pancreatitis secondary to alcohol abuse and required multiple doses of Dilaudid to control her pain. She denied drinking alcohol after being discharged. In the ED, she was found to have stable vital signs. Blood workup today showed leukocytosis of 15.8. Hemoglobin is 9.5 which is around baseline. Platelets are normal. There are no significant electrolyte imbalances. Renal function is normal. LFTs are unremarkable except for elevated AST. Albumin is 3.4. Triglycerides and lipase are normal. Abdomen pelvis CT scan with IV contrast showed moderate peripancreatic stranding, similar to prior and suspicious for pancreatitis, and findings suggesting early developing pseudocyst (3.5 cm). In [place] showed hepatosplenomegaly, hepatic steatosis and periumbilical ventral hernia containing a short segment of nondilated small bowel. ED tx: Dilaudid 4 mg IV (total), Reglan 10 mg IV, Benadryl 50 mg IV, LR 1 L bolus. Review of Systems 2 Review of Systems: Yes all other systems are reviewed and are negative [facility] Medical History 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 Shelia-Gee tear FH: cholecystectomy Surgical History History of biopsy Social History Alcohol intake: current Alcohol intake frequency: holidays/special occasions only Patient Tobacco Use Status: Current everyday Tobacco user Tobacco use type: Cigarette Cigarette Packs Per Day: 1 Cigarettes Per Day: 20.0 Smoked in Last 30 Days: No Advance Directives: No Advance Directives Information Provided: Yes Do you have a plan to hurt others: No Plan Patient : No service: No Meds Allergies Allergy/AdvReac Type Severity Reaction Status Date / Time ibuprofen [From Motrin] Allergy Unknown HIVES Verified 03/20/24 00:45 tramadol [Tramadol] AdvReac Unknown NAUSEA Verified 03/20/24 00:45 Active Medications: Current Medications Heparin Sodium (Porcine) (Heparin Sodium,Porcine 5,000 Unit/Ml Vial) 5,000 unit SUBCUT Q8H AYLEEN Hydromorphone HCl (Hydromorphone Hcl 2 Mg/Ml Vial) 2 mg IVPUSH Q2H PRN; Protocol PRN Reason: Pain, Severe (Pain Scale 7-10) Lactated Ringer's (Lr) 1,000 mls @ 150 mls/hr IVCONT .Q6H40M AYLEEN Sodium Chloride (0.9 % Sodium Chloride Flush 3 Ml Syringe) 3 ml IVFLUSH QSHIFT [facility] Home Medications ?Medication ?Instructions ?Recorded ?Confirmed ?Last Taken ?Type buprenorphine 12 mg-naloxone 3 mg 2 film sublingual DAILY 03/17/24 03/17/24 Unknown History sublingual film (Suboxone) omeprazole 20 mg capsule,delayed 20 mg PO DAILY 03/17/24 03/17/24 Unknown History release Physical Exam 2 Vital Signs and Narrative: Vital Signs: Last Vital Signs Temp 98.0 F 03/20/24 00:43 Pulse 98 03/20/24 00:43 Resp 18 03/20/24 00:43 BP 130/106 H 03/20/24 00:43 Pulse Ox 100 03/20/24 00:43 O2 Del Method Room Air 03/20/24 00:43 BMI result Body Mass Index 29.3 Constitutional - Awake and Alert. In severe distress due to pain. Fiance at bedside. HEENT - Normocephalic. Atraumatic. Normal sclera. Dry oral mucosa. Heart - Tachycardic. Lungs - Normal lung expansion, Normal respiratory effort, No respiratory distress, CTA bilaterally Abdomen - Non distended. Increased bowel sounds. Generalized tenderness to palpation -more prominent in the epigastrium. Positive guarding. Extremities - No calf tenderness bilaterally, no swelling Musculoskeletal - Normal inspection, normal ROM Skin - No pallor. No jaundice. Neurological - Alert & oriented x3. No focal weakness grossly noted. Normal speech. Psychological - Anxious affect Results Labs 03/20/24 01:02 03/20/24 01:02 Labs: Laboratory Results - last 24 hr 03/20/24 03/20/24 01:02 01:30 MCV 76.9 L MCH 23.1 L MCHC 30.0 L RDW 22.7 H Plt Count 231 MPV 10.8 Immature Gran % (Auto) 0.6 H Neut % (Auto) 78.5 H Lymph % (Auto) 10.2 L [place] % (Auto) 9.6 Eos % (Auto) 0.8 Baso % (Auto) 0.3 Lymph # (Auto) 1.6 [place] # (Auto) 1.5 H Eos # (Auto) 0.1 Baso # (Auto) 0.1 Abs Immat Gran (auto) 0.10 H Absolute Neuts (auto) 12.4 H Absolute Nucleated RBC 0.000 Nucleated RBC % (auto) 0.0 Smear Tech's Comments VERIFIED Anion Gap 16 Estim Creat Clear Calc 98.9 Estimated GFR > 60 Random Glucose 84 Calcium 9.1 Total Bilirubin 0.3 AST 42 H ALT 24 Alkaline Phosphatase 88 Total Protein 7.6 Albumin 3.4 L Triglycerides 90 Cancelled Lipase 54 Urine Color Yellow Urine Appearance Clear Urine pH 6.0 Ur Specific [place] 1.015 Urine Protein Trace Urine Glucose (UA) Negative Urine Ketones 15 Urine Blood Negative Urine Nitrite Negative Ur Leukocyte Esterase Negative Urine RBC 0-2 Urine WBC 0-5 Ur Squamous Epith Cells 6-10 Urine Bacteria Trace Hyaline Casts 0-2 Ethyl Alcohol < 10 Influenza Type A (PCR) NEGATIVE Influenza Type B (PCR) NEGATIVE RSV RNA Qual (PCR) NEGATIVE SARS-CoV-2 RNA (RT-PCR) NEGATIVE Imaging Radiologist's Impressions: Impressions Abdomen/Pelvis CT 03/20/24 02:10 IMPRESSION: 1. Moderate peripancreatic stranding, similar to prior and suspicious for pancreatitis. Small amount of fluid inferior to the pancreatic body appears partially marginated on the current exam, suggesting early developing pseudocyst measuring approximately 3.5 cm in diameter. 2. Splenic vein near the portosplenic confluence appears mildly narrowed though remains patent, in the setting of surrounding peripancreatic inflammation. 3. Hepatosplenomegaly. Hepatic steatosis. 4. Redemonstrated periumbilical ventral hernia containing a short segment of nondilated small bowel. No evidence of bowel obstruction. 5. Subtle pulmonary groundglass opacity in the right middle lobe, suggesting mild infectious/inflammatory change. Assessment and Plan (1) Pancreatic pseudocyst: Status: Acute (2) Abdominal pain: Qualifiers: Abdominal location: epigastric Qualified Code(s): R10.13 - Epigastric pain Status: Acute (3) Microcytic anemia: Status: Acute (4) Alcohol use: Status: Acute Plan Pinky Cadet is a 49 y/o woman w/ PMHx significant for metastatic stomach CA s/p partial gastrectomy, cholecystectomy, Shelia-Gee tear and recent hospitalization due to acute alcoholic pancreatitis admitted with: * Severe abdominal pain, concerning for early developing pseudocyst. Admit to hospitalist service. NPO. IV fluids and PPIs. Pain control with Dilaudid IV. Antiemetic therapy as needed. Continue to monitor LFTs. IR consult. * Leukocytosis. No sepsis. Likely secondary to above. Continue to monitor. * Microcytic anemia + elevated RDW. Check anemia workup: Ferritin, retic count, TIBC, iron level, vitamin B12 and folate. * Chronic pain. On Suboxone. * History alcohol abuse. Thiamine IV. Continue folic acid and multivitamins when able. Patient denied drinking alcohol after discharge. DVT prophylaxis: SCDs. Code status: Full Patient will need hospitalization for at least 2 midnights for severe abdominal pain control with IV narcotics and IV fluids. Patient also will need evaluation by IR to consider intervention. Quality Stroke Does the patient have a stroke diagnosis?: No VTE Prior VTE?: No VTE Risk Level:: Medical - moderate - high VTE Device Contraindication: N/A - Device Ordered VTE Drug Contraindication: Treatment Not Indicated
[2024-03-20 05:27] LABS: Immature Retic Fraction 22.8 % (3.0-15.9); PLT ABN DIST 1; Retic HGB Equivalent 23.2 pg (30.0-35.0); Reticulocyte Percent 2.3 % (0.5-1.8); Reticulocytes Absolute 0.094 X10*6/uL (0.026-0.095)
[2024-03-20 05:46] LABS: Iron 15 mcg/dL (30-160); Percent Iron Saturation 4 % (15-50); Total Iron Binding Capacity 367 mcg/dL (228-428); Unsaturated Iron Binding 352 ug/dL
[2024-03-20 05:56] LABS: Ferritin 52 ng/mL (10-250)
--- NOTE | 2024-03-20 06:28 | PC.NURSE ---
Pinky Cadet is a 49 y/o woman w/ PMHx significant for metastatic stomach CA s/p partial gastrectomy, cholecystectomy, Shelia-Gee tear and recent hospitalization due to acute alcoholic pancreatitis admitted with: Severe abdominal pain, concerning for early developing pseudocyst. Admit to hospitalist service. NPO. IV fluids and PPIs. Pain control with Dilaudid IV. Antiemetic therapy as needed. Continue to monitor LFTs. IR consult. Leukocytosis. No sepsis. Likely secondary to above. Continue to monitor. Microcytic anemia + elevated RDW. Check anemia workup: Ferritin, retic count, TIBC, iron level, vitamin B12 and folate. Chronic pain. On Suboxone. History alcohol abuse. Thiamine IV. Continue folic acid and multivitamins when able. Patient denied drinking alcohol after discharge. NPO Dilaudid q 2 hours for pain control IV access: 20 LAC
[2024-03-20] MEDS: Lactated Ringers 1,000 ML 150 ML IVCONT ×2 (06:36→17:27)
[2024-03-20] MEDS: Pantoprazole Sodium 40 MG/10 ML VIAL IVPUSH (06:36)
--- NOTE | 2024-03-20 07:29 | PHA.MEDREC ---
Pharmacy Consult ? Medication Reconciliation Pharmacy has completed the medication reconciliation. Patient recently discharged (03/19/24). Utilized discharge packet to confirm meds.
[2024-03-20 08:08] LABS: Folate 12.4 ng/mL (> or = 4.0); Vitamin B12 > 2000 pg/mL (200-900)
[2024-03-20] MEDS: Thiamine HCL 100 MG in 0.9 % Sodium Chloride 100 ML 202 MG IV (08:51)
[2024-03-20] MEDS: cloNIDine HCL 0.1 MG TABLET PO ×3 (08:51→20:15)
--- NOTE | 2024-03-20 09:16 | MHC.CM.PN ---
Patient is from home w/ boyfriend, daughter, granddaughter. Functionally independent. Denies use of DME or services. PCP is Jamal Rogers MD No HCP. CM provided education and offered assistance. Patient declined at this time, but will discuss w/ family. DP: Goal is home self care. Family to transport. CM will continue to follow.
--- NOTE | 2024-03-20 09:24 | PC.NURSE ---
Pt NPO, PO Clonidine ordered per MD MONTRELL made aware Pts BP 190/88, MD okay to give PO medication, Pt tolerated well, denies nausea or vomiting, Pt resting in bed, respirations even and unlabored, call mckeon within reach.
--- NOTE | 2024-03-20 09:33 | PC.NURSE ---
STERILE PROCESS COORDINATOR reported to this RN L big toe has toe nail missing- bandaid fell off. Pt states this is not new, toenail missing prior to admission, foam dressing applied for protection.
[2024-03-20] MEDS: Buprenorphine/Naloxone 12/3 mg FILM 2 FILM SUBLINGUAL (10:30)
--- NOTE | 2024-03-20 10:58 | PM.EVENT ---
Event Note Date of Service: 03/20/24 Event Note: This patient is seen and examined by hospitalist team this morning ,seen and examined again abd pain similar. Physical exam; unchanged (please see h&P) and assessment and plan coordinated in APCs note, Agree with the plan in addition: Severe abdominal pain, concerning for early developing pseudocyst. try clearliquids, iv pain meds,antiemtics Gi eval. Time Spent With Patient Time: Total time managing care of this patient today ____ minutes.
--- NOTE | 2024-03-20 12:20 | PM.GICN ---
History of Present Illness Data of Consult Service Date: 03/20/24 Requesting physician: Morenita Sylvester Primary Care Provider: Unknown Physician HPI Reason for consult: Abd pain, pancreatic cyst This is a 49-year-old female with past medical history of question gastric cancer status post partial gastrectomy, alcohol use disorder, who had a recent admission to the hospital for acute interstitial pancreatitis and is returning for worsening abdominal pain. Gastroenterology has been consulted for symptom management as well as question of peripancreatic fluid collection. History was obtained from the patient, who states that even on the day of discharge, she could feel some of the pain returning. However, figure that will be able to manage it at home. Unfortunately, could not get her oxycodone filled until just last evening but by that time, pain had become excruciating to the point that she felt that she was not able to breathe. With this, also does not have any appetite, unable to eat. Nausea, but no vomiting. Does not report any etOH relapse. On arrival, noted to be hypertensive. But otherwise afebrile. Labs were significant for leukocytosis mildly worse from before. Chem 7 with normal renal function. Albumin 3.4. CT abdomen and pelvis shows persistent pancreatic changes with small peripancreatic fluid. On my review, also seems to be suspicious for question early necrosis. Splenic vein is patent. 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 Shelia-Gee tear FH: cholecystectomy Surgical History Surgical History History of biopsy Social History Social History Household Members: Family and Children Housing: Apartment Alcohol intake: current Alcohol intake frequency: holidays/special occasions only Patient Tobacco Use Status: Current everyday Tobacco user Tobacco use type: Cigarette Cigarette Packs Per Day: 1 Cigarettes Per Day: 13 service: No Meds Allergies Allergy/AdvReac Type Severity Reaction Status Date / Time ibuprofen [From Motrin] Allergy Unknown HIVES Verified 03/20/24 00:45 tramadol [Tramadol] AdvReac Unknown NAUSEA Verified 03/20/24 00:45 Active Medications: Current Medications Buprenorphine/Naloxone (Buprenorphine/Naloxone 12/3 Mg Film) 2 film SUBLINGUAL DAILY [facility] Last Admin: 03/20/24 10:30 Dose: 2 film Clonidine HCl (Clonidine Hcl 0.1 Mg Tablet) 0.1 mg PO TID [facility]; Protocol Last Admin: 03/20/24 08:51 Dose: 0.1 mg Hydromorphone HCl (Hydromorphone Hcl 2 Mg/Ml Vial) 2 mg IVPUSH Q2H PRN; Protocol PRN Reason: Pain, Severe (Pain Scale 7-10) Last Admin: 03/20/24 11:31 Dose: 2 mg Lactated Ringer's (Lr) 1,000 mls @ 150 mls/hr IVCONT .Q6H40M [facility] Last Admin: 03/20/24 11:17 Dose: Not Given Thiamine HCl 100 mg/ Sodium (Chloride) 101 mls @ 202 mls/hr IV DAILY [facility] Last Infusion: 03/20/24 09:22 Dose: Infused Pantoprazole Sodium (Pantoprazole Sodium 40 Mg/10 Ml Vial) 40 mg IVPUSH DAILY@629 [facility] Last Admin: 03/20/24 06:36 Dose: 40 mg Prochlorperazine Edisylate (Prochlorperazine Edisylate 10 Mg/2 Ml Vial) 5 mg IVPUSH Q4H PRN PRN Reason: Nausea and Vomiting Sodium Chloride (0.9 % Sodium Chloride Flush 3 Ml Syringe) 3 ml IVFLUSH QSHIFT [facility] Last Admin: 03/20/24 07:56 Dose: Not Given Home Medications ?Medication ?Instructions ?Recorded ?Confirmed ?Last Taken ?Type buprenorphine 12 mg-naloxone 3 mg 2 film sublingual DAILY 03/17/24 03/20/24 Unknown History sublingual film (Suboxone) omeprazole 20 mg capsule,delayed 20 mg PO DAILY@0630 03/17/24 03/20/24 Unknown History release Physical Exam Vital Signs: Vital Signs: Last Vital Signs Temp 97.2 F 03/20/24 08:59 Pulse 89 03/20/24 08:59 Resp 18 03/20/24 08:59 BP 190/88 H 03/20/24 08:59 Pulse Ox 100 03/20/24 08:59 O2 Del Method Room Air 03/20/24 08:59 BMI result Body Mass Index 29.7 Middle-aged female No acute distress Nonicteric Abdomen soft, tender with guarding, mildly distended No overt respiratory distress Mild lower extremity edema Results Labs 03/20/24 01:02 03/20/24 01:02 Labs: Short CBC 03/20/24 Range/Units 01:02 WBC 15.8 H (4.8-10.8) X10*3/uL Hgb 9.5 L (12.0-16.0) g/dl Hct 31.7 L (37.0-47.0) % Plt Count 231 (160-400) X10*3/uL BMP 03/20/24 01:02 Sodium 138 Potassium 3.7 Chloride 105 Carbon Dioxide 21 L BUN 5 L Creatinine 0.63 Calcium 9.1 Liver Function 03/20/24 Range/Units 01:02 Total Bilirubin 0.3 (0.0-1.0) mg/dL AST 42 H (5-31) U/L ALT 24 (0-31) U/L Alkaline Phosphatase 88 (39-117) U/L Albumin 3.4 L (3.5-5.0) g/dL Urine 03/20/24 Range/Units 01:02 Urine Color Yellow Urine Appearance Clear Urine pH 6.0 (5.0-9.0) Ur Specific [place] 1.015 (1.005-1.025) Urine Protein Trace (Neg-Trace) mg/dL Urine Glucose (UA) Negative (Negative) mg/dL Imaging CT scan - abdomen: Attestation: I personally reviewed and interpreted this imaging study as follows: My impression: Pancreatitis, question early necrosis. Small amount of peripancreatic fluid Assessment and Plan (1) Alcohol use: Status: Acute (2) Acute alcoholic pancreatitis: Qualifiers: Acute pancreatitis complication: no infection or necrosis Qualified Code(s): K85.20 - Alcohol induced acute pancreatitis without necrosis or infection Status: Acute (3) Abdominal pain: Qualifiers: Abdominal location: epigastric Qualified Code(s): R10.13 - Epigastric pain Status: Acute (4) Peripancreatic fluid collection: Status: Acute Plan Clinical assessment consistent with alcohol use disorder leading to acute interstitial pancreatitis with acute peripancreatic fluid collection. Main issue appears to be pain management and oral intake at this time. Recommendations: -scheduled Tylenol 650 mg t.i.d. staggered with scheduled oxycodone 10 mg t.i.d. -can utilise Dilaudid as p.r.n. for breakthrough pain -Nutrition is of paramount importance to avoid infection complications. Calorie counting recommended. IF patient is unable to meet her caloric demands due to pain, will need [place] tube -add fat-free ensure shakes -APFC is a common complication of acute pancreatitis and most of them resolve spontaneously- less than 10% evolve into pseudocysts. Can consider outpatient imaging in 4 weeks to assess. Thank you for allowing me to participate in her care. Please do not hesitate to reach out for any questions or concerns. Procedures Date of Service Date of Service: 03/20/24
[2024-03-20] MEDS: 0.9 % Sodium Chloride Flush 3 ML SYRINGE IVFLUSH ×2 (14:36→20:15)
--- NOTE | 2024-03-20 16:15 | PC.NURSE ---
Pt ambulating in the hallway, noted by this RN and BOLT LOADER to attempt to get on the elevator twice after being advised that she can not leave the floor. Pt redirected back to room, nursing supervisor sample has been made aware.
[2024-03-21] VITALS (8 sets, daily range): BP systolic 152–196; BP diastolic 70–89; PULSE 80–86; RESP 16–20; TEMP 36.1–36.6; O2SAT 94–98
[2024-03-21] MEDS: Lactated Ringers 1,000 ML 150 ML IVCONT ×2 (00:01→06:05)
[2024-03-21] MEDS: HYDROmorphone HCl 2 MG/ML VIAL IVPUSH ×8 (00:01→20:43)
[2024-03-21] MEDS: Pantoprazole Sodium 40 MG/10 ML VIAL IVPUSH (06:03)
[2024-03-21 06:28] LABS: Basophils Percent Auto 0.4 % (0-2); Eosinophils Absolute Auto 0.2 X10*3/uL (0.0-0.4); Eosinophils Percent Auto 1.6 % (0-4); Hematocrit 26.7 % (37.0-47.0); Imm Gran Abs Auto 0.07 X10*3/uL (0.00-0.03); Imm Gran Pct Auto 0.7 % (0.0-0.4); Lymphocytes Absolute Auto 1.6 X10*3/uL (1.2-4.9); Lymphocytes Percent Auto 15.8 % (20-40); MANUAL DIFF FLAG SCAN; Mean Corpuscular Hemoglobin 22.8 pg (27.0-33.0); Mean Corpuscular Volume 76.1 fL (80.0-98.0); Mean Platelet Volume 10.9 fL (9.4-12.3); Monocytes Absolute Auto 1.5 X10*3/uL (0.1-1.2); Monocytes Percent Auto 14.9 % (2-11); Neutrophils Absolute Auto 6.9 x10*3/uL (2.0-8.3); Neutrophils Percent Auto 66.6 % (45-73); Platelet Count 253 X10*3/uL (160-400); Red Blood Count 3.51 X10*6/uL (4.20-5.50); Red Cell Distribution Width 22.1 % (11.0-16.0); SCAN SMEAR FLAG 1; White Blood Count 10.3 X10*3/uL (4.8-10.8)
[2024-03-21 06:29] LABS: Alanine Aminotransferase 18 U/L (0-31); Albumin Level 2.9 g/dL (3.5-5.0); Alkaline Phosphatase 76 U/L (39-117); Anion Gap 13 (12-20); Aspartate Amino Transferase 31 U/L (5-31); Blood Urea Nitrogen 3 mg/dL (9-16); Calcium 8.5 mg/dL (8.4-10.2); Carbon Dioxide 24 mmol/L (22-29); Chloride 103 mmol/L (96-108); Creatinine Clr Calc Pharmacy 114.1; Estimated Glomerular Filt Rate > 60; Glucose Random 104 mg/dL (60-115); Sodium 137 mmol/L (135-145); Total Protein 6.5 g/dL (6.5-8.0)
[2024-03-21 06:39] LABS: Bilirubin Total 0.3 mg/dL (0.0-1.0)
[2024-03-21 07:14] LABS: SLIDE REVIEW VERIFIED
[2024-03-21] MEDS: Thiamine HCL 100 MG in 0.9 % Sodium Chloride 100 ML 202 MG IV (08:57)
[2024-03-21] MEDS: cloNIDine HCL 0.1 MG TABLET PO ×3 (08:57→20:43)
[2024-03-21] MEDS: Nicotine 21 MG PATCH.TD24 TRANSDERMA (08:58)
[2024-03-21] MEDS: Buprenorphine/Naloxone 12/3 mg FILM 2 FILM SUBLINGUAL (08:58)
[2024-03-21] MEDS: Acetaminophen 325 MG TABLET 975 MG PO ×3 (09:28→20:43)
[2024-03-21] MEDS: oxyCODONE HCl Immed Release 5 MG TABLET 10 MG PO ×2 (09:28→13:58)
--- NOTE | 2024-03-21 12:45 | P.PNIM_ITS ---
Subjective Subjective Date of Service: 03/21/24 Interval History: little. cyst abd pain Review of Systems abd somewhat similar to yesterday has some nausea no vomiting Physical Exam 2 Vital Signs: Vital Signs: Last Vital Signs Temp 97 F 03/21/24 07:54 Pulse 86 03/21/24 07:54 Resp 18 03/21/24 07:54 BP 173/89 H 03/21/24 08:57 Pulse Ox 97 03/21/24 07:54 O2 Del Method Room Air 03/21/24 07:54 O2 Flow Rate 97 03/20/24 15:57 BMI result Body Mass Index 29.7 Appearance: Alert.? Oriented X3.? cvs: rrr, [id number] , no murmur res: clear to auscultation ,no rhonchii or wheezing abd: no rebound or guarding ,mild diffuse pain, bs present. ext pulses present , no cyanosis . neuro: axo3 , nonfocal. Objective Data Active Medications Acetaminophen (Acetaminophen 325 Mg Tablet) 975 mg PO TID [facility] Last Admin: 03/21/24 09:28 Dose: 975 mg Documented By: MARYLU Comments: PER MD ALFORD OK TO GIVE FOR 10/10 PAIN, PT ALREADY RECEIVED OTHER PRN MEDICATIONS Amlodipine Besylate (Amlodipine Besylate 2.5 Mg Tablet) 2.5 mg PO ONCE ONE; Protocol Stop: 03/21/24 12:44 Buprenorphine/Naloxone (Buprenorphine/Naloxone 12/3 Mg Film) 2 film SUBLINGUAL DAILY [facility] Last Admin: 03/21/24 08:58 Dose: 2 film Documented By: MARYLU Clonidine HCl (Clonidine Hcl 0.1 Mg Tablet) 0.1 mg PO TID [facility]; Protocol Last Admin: 03/21/24 08:57 Dose: 0.1 mg Documented By: MARYLU Hydromorphone HCl (Hydromorphone Hcl 2 Mg/Ml Vial) 2 mg IVPUSH Q2H PRN; Protocol PRN Reason: Pain, Severe (Pain Scale 7-10) Last Admin: 03/21/24 12:40 Dose: 2 mg Documented By: MARYLU Lactated Ringer's (Lr) 1,000 mls @ 150 mls/hr IVCONT .Q6H40M [facility] Last Admin: 03/21/24 06:05 Dose: 150 mls/hr Documented By: LISETTE Thiamine HCl 100 mg/ Sodium (Chloride) 101 mls @ 202 mls/hr IV DAILY [facility] Last Infusion: 03/21/24 09:27 Dose: Infused Documented By: MARYLU Nicotine (Nicotine 21 Mg Patch.Td24) 21 mg TRANSDERMA DAILY [facility] Last Admin: 03/21/24 08:58 Dose: 21 mg Documented By: MARYLU Oxycodone HCl (Oxycodone Hcl Immed Release 5 Mg Tablet) 10 mg PO Q4H PRN PRN Reason: Pain, Mild (Pain Scale 1-3) Last Admin: 03/21/24 09:28 Dose: 10 mg Documented By: MARYLU Comments: PER OK TO GIVE FOR 1010 PAIN, PT ALREADY RECEIVED PRN DILAUDID Pantoprazole Sodium (Pantoprazole Sodium 40 Mg/10 Ml Vial) 40 mg IVPUSH DAILY@0630 [facility] Last Admin: 03/21/24 06:03 Dose: 40 mg Documented By: LISETTE Prochlorperazine Edisylate (Prochlorperazine Edisylate 10 Mg/2 Ml Vial) 5 mg IVPUSH Q4H PRN PRN Reason: Nausea and Vomiting Sodium Chloride (0.9 % Sodium Chloride Flush 3 Ml Syringe) 3 ml IVFLUSH QSHIFT [facility] Last Admin: 03/21/24 09:07 Dose: Not Given Documented By: MARYLU Non-Admin Reason: IV Running Labs 03/21/24 05:14 03/21/24 05:14 Labs: Laboratory Results - last 24 hr 03/21/24 05:14 MCV 76.1 L MCH 22.8 L MCHC 30.0 L RDW 22.1 H Plt Count 253 MPV 10.9 Immature Gran % (Auto) 0.7 H Neut % (Auto) 66.6 Lymph % (Auto) 15.8 L [place] % (Auto) 14.9 H Eos % (Auto) 1.6 Baso % (Auto) 0.4 Lymph # (Auto) 1.6 [place] # (Auto) 1.5 H Eos # (Auto) 0.2 Baso # (Auto) 0.0 Abs Immat Gran (auto) 0.07 H Absolute Neuts (auto) 6.9 Absolute Nucleated RBC 0.000 Nucleated RBC % (auto) 0.0 Smear Tech's Comments VERIFIED Anion Gap 13 Estim Creat Clear Calc 114.1 Estimated GFR > 60 Random Glucose 104 Calcium 8.5 D Total Bilirubin 0.3 AST 31 ALT 18 Alkaline Phosphatase 76 Total Protein 6.5 Albumin 2.9 L Assessment and Plan (1) Acute alcoholic pancreatitis: Status: Acute (2) Alcohol use disorder, severe, dependence: Status: Acute Plan 49-year-old female with past medical history of metastatic stomach cancer-status post partial gastrectomy, Shelia-Gee tear, cholecystectomy-came to the hospital because of abdominal pain -she says it started after taking 6 nips of fireball. acute pancreatitis- mild leucocytosis reactive to pancreatitis lactic acid normal,c abd -possible pancreatitis Seen by general surgery no acute intervention. IV hydration, IV pain meds, ppi,? Also on methadone because of previous surgery of gastrectomy. will try clear liquid diet Added Addiction, GI evaluation elevated Bp -no hx of htn : added clonidine alcohol use : added ciwa ,thiamine,folic acid. no hx of withdrawal. addiction pain control on suxaone -s/p surgery gasterectomy ongoing hospitlisation stay : Considering acute pancreatitis status post alcohol use: Need bowel rest, IV hydration and pain management as well as GI evaluation. Quality Stroke Does the patient have a stroke diagnosis?: No VTE Prior VTE?: No VTE Risk Level:: Medical - moderate - high VTE Device Contraindication: N/A - Device Ordered VTE Drug Contraindication: Treatment Not Indicated
[2024-03-21] MEDS: amLODIPine Besylate 2.5 MG TABLET PO (13:01)
[2024-03-21] MEDS: 0.9 % Sodium Chloride Flush 3 ML SYRINGE IVFLUSH ×2 (15:43→20:43)
[2024-03-22] MEDS: HYDROmorphone HCl 2 MG/ML VIAL IVPUSH ×2 (00:09→05:47)
[2024-03-22] MEDS: oxyCODONE HCl Immed Release 5 MG TABLET 10 MG PO ×2 (03:24→08:08)
[2024-03-22 03:50] VITALS: BP 169/85; PULSE 85; RESP 20; TEMP 36.2; O2SAT 100
[2024-03-22] MEDS: Pantoprazole Sodium 40 MG/10 ML VIAL IVPUSH (05:41)
[2024-03-22 06:48] VITALS: BP 170/80; PULSE 98; RESP 16; TEMP 36.6; O2SAT 99
[2024-03-22] MEDS: cloNIDine HCL 0.1 MG TABLET PO (08:08)
[2024-03-22] MEDS: Nicotine 21 MG PATCH.TD24 TRANSDERMA (08:08)
[2024-03-22] MEDS: amLODIPine Besylate 2.5 MG TABLET PO (08:09)
[2024-03-22] MEDS: 0.9 % Sodium Chloride Flush 3 ML SYRINGE IVFLUSH (08:09)
[2024-03-22] MEDS: Acetaminophen 325 MG TABLET 975 MG PO (08:09)
[2024-03-22] MEDS: Thiamine HCL 100 MG in 0.9 % Sodium Chloride 100 ML 202 MG IV (08:14)
--- NOTE | 2024-03-22 09:29 | PM.EVENT ---
Event Note Date of Service: 03/22/24 Event Note: A consult was placed by overnight admitting service for consideration of aspiration of a pancreatic pseudocyst. Imaging an chart reviewed. Patient is a 49 y/o female admitted with alcohol induced pancreatitis. Cross sectional imaging demonstrates peripancreatic stranding a likely developing 3 cm pseudocyst. She presented with a leukocytosis that has resolved with hydration and without the use of antibiotics. She remains afebrile. Percutaneous sampling/drainage of pancreatic pseudocysts is indicated when there is a concern for an infected pseudocyst, or severe abdominal discomfort due to mass effect from the cyst. At this time, IR does not recommend any percutaneous procedures for this small, developing pseudocyst. Discussed with Dr. Andrae MURO Time Spent With Patient Time: Total time managing care of this patient today ____ minutes.
--- NOTE | 2024-03-22 09:46 | MHC.CM.PN ---
pt left [facility]
[2024-03-22 11:04] LABS: Transferrin 306 mg/dL (188-341)
--- NOTE | 2024-03-22 18:48 | P.DS_ITS ---
DS: Providers Provider Date of Service: 03/22/24 Date of admission: 03/20/24 04:40 Date of discharge: 03/22/24 Primary care physician: Jamal Rogers III, MD Consults: 03/20/24 08:05 Consult to Gastroenterology Routine Consulting Provider: [facility] Reason for consultation: abd pain-acute pancreatitis /pseudocyst Has provider been notified: No Attending physician on discharge: Morenita Sylvester Discharging clinician: Morenita Sylvester DS: Diagnosis Discharge Diagnosis (1) Acute alcoholic pancreatitis: Status: Acute (2) Alcohol use disorder, severe, dependence: Status: Acute DS: Summary Hospital Course Hospital Course: 49 years old woman with past medical history significant for metastatic stomach CA s/p partial gastrectomy, cholecystectomy, Shelia-Gee tear and Suboxone for chronic pain presents to the emergency department complaining of severe upper a bdominal pain that has been getting worsening she was discharged yesterday from the hospital. Pain is described as sharp and radiating to the back. Pain intensity is 10/10. Patient was discharged on oxycodone which has not been helping for the pain. She also report vomiting. Did not report diarrhea, constipation, fevers or chills. She was hospitalized after she was found to have acute pancreatitis secondary to alcohol abuse and required multiple doses of Dilaudid to control her pain. She denied drinking alcohol after being discharged. In the ED, she was found to have stable vital signs. Blood workup today showed leukocytosis of 15.8. Hemoglobin is 9.5 which is around baseline. Platelets are normal. There are no significant electrolyte imbalances. Renal function is normal. LFTs are unremarkable except for elevated AST. Albumin is 3.4. Triglycerides and lipase are normal. Abdomen pelvis CT scan with IV contrast showed moderate peripancreatic stranding, similar to prior and suspicious for pancreatitis, and findings suggesting early developing pseudocyst (3.5 cm). In [place] showed hepatosplenomegaly, hepatic steatosis and periumbilical ventral hernia containing a short segment of nondilated small bowel. ED tx: Dilaudid 4 mg IV (total), Reglan 10 mg IV, Benadryl 50 mg IV, LR 1 L bolus. Hospital course: patient has acute pancreatitis episode recently-came back with abd pain -started on hydration ,iv pain meds and bowel rest- she had some improvement but still has abd pain and could not tolerate diet,she also has microcytic anemia ,mild hypokalemia: patient said this morning she need to leave for family emergency and afterwards she was upset because we discussed with her that she is not improving and has above medical issues which need closle attending and also she can not tolerate diet ,she was also refusing intermittent treatments (refuses to use ivf ,further labs )- she understands risks of leaving ama including worsening pseudocyst complications,electrolytes abnormalities and anemia ,aox3 , upset to talk further ,refuses more meds also except wanted oxycodone for pain Nand blood pressure-we send these to pharmacy,we have also send potassium 10 meq po dialy forx5 day supply.also told her to nearest ED. Time Attestation Discharge Coordination Time (in mins): 40 min Quality: Safe Use of Opioids Does Pt have an Active Cancer Diagnosis on the Problem List?: No Quality: Stroke Does the patient have a stroke diagnosis?: No Physical Exam Vital Signs: Vital Signs: Last Vital Signs Temp 98 F 03/22/24 06:48 Pulse 98 03/22/24 06:48 Resp 16 03/22/24 06:48 BP 170/80 H 03/22/24 06:48 Pulse Ox 99 03/22/24 06:48 O2 Del Method Room Air 03/22/24 06:48 O2 Flow Rate 97 03/20/24 15:57 BMI result Body Mass Index 29.7 refused exam. DS: Data Data Completed and Pending Labs on day of discharge: Laboratory Results - last 24 hr 03/20/24 06:49 Transferrin 306 Imaging Chest x-ray: Radiologist's impression: ITS Impressions Abdomen/Pelvis CT 03/20/24 02:10 IMPRESSION: 1. Moderate peripancreatic stranding, similar to prior and suspicious for pancreatitis. Small amount of fluid inferior to the pancreatic body appears partially marginated on the current exam, suggesting early developing pseudocyst measuring approximately 3.5 cm in diameter. 2. Splenic vein near the portosplenic confluence appears mildly narrowed though remains patent, in the setting of surrounding peripancreatic inflammation. 3. Hepatosplenomegaly. Hepatic steatosis. 4. Redemonstrated periumbilical ventral hernia containing a short segment of nondilated small bowel. No evidence of bowel obstruction. 5. Subtle pulmonary groundglass opacity in the right middle lobe, suggesting mild infectious/inflammatory change. Discharge Plan Discharge Patient Disposition: Left Against Medical Advice Discharge Diagnosis: Pancreatic Pseudocyst. Referrals: Jamal Rogers III, MD [Primary Care Provider] - 1 Week Discharge Medications: New clonidine HCl 0.1 mg Tablet 0.1 mg PO TID Qty: 180 0RF Protocol: Hold for SBP< HOLD for SBP < : 90 acetaminophen 325 mg Tablet 975 mg PO TID Qty: 20 0RF amlodipine 2.5 mg Tablet 2.5 mg PO DAILY Qty: 90 0RF Protocol: Hold for SBP< HOLD for SBP < : 90 omeprazole 20 mg Capsule,Delayed Release(Dr/Ec) 20 mg PO DAILY Qty: 30 0RF potassium chloride 10 mEq capsule, extended release 10 meq PO DAILY Qty: 5 0RF Continued omeprazole 20 mg Capsule,Delayed Release(Dr/Ec) 20 mg PO DAILY@0630 buprenorphine-naloxone [Suboxone] 12-3 mg film 2 film sublingual DAILY thiamine HCl (vitamin B1) 100 mg tablet 100 mg PO DAILY Qty: 30 0RF folic acid 1 mg tablet 1 mg PO DAILY Qty: 30 0RF oxycodone 5 mg tablet 5 mg PO BID PRN (Reason: pain) Qty: 10 0RF Rx Instructions: Partial Fill upon patient request. Discharge Orders: Discharge Order (Routine); Ordered 03/22/24 Ordered By: Morenita Sylvester Print Language: [place] Care Plan Goals: left [facility] Health Concerns: left ama Plan of Treatment: left ama Assessment: left ama Discharge Date/Time: 03/22/24 09:22
== END 2024-03-22 09:22 | disposition left against medical advice (07) | DRG 282 ==
LOC: HO.ED 02:54 → HO.EDOVER 04:48 → HO.S3 07:41
PROVIDERS: Emergency Medicine Emergency Medical Services; Admitting Provider Internal Medicine; Emergency Provider Emergency Medicine; PCP Internal Medicine; Visit Provider Internal Medicine
DX: K85.20 Alcohol induced acute pancreatitis without necrosis or infection (principal); D50.9 Iron deficiency anemia, unspecified; F17.210 Nicotine dependence, cigarettes, uncomplicated; F10.20 Alcohol dependence, uncomplicated; G89.29 Other chronic pain; Z20.822 Contact with and (suspected) exposure to COVID-19; Z71.6 Tobacco abuse counseling; K86.3 Pseudocyst of pancreas; Z90.3 Acquired absence of stomach [part of]; Z79.891 Long term (current) use of opiate analgesic; Z85.028 Personal history of other malignant neoplasm of stomach; Z79.899 Other long term (current) drug therapy
CPT/HCPCS: 0241U; 36415; 74177; 80053; 80307; 81001; 82607; 82728; 82746; 83540; 83690; 84466; 84478; 85025; 85045; 99285; C9113; J1170; J1200; J2765; J3411; J7120; Q9967

== ENCOUNTER → 2024-03-20 04:40 | Outpatient (BNV) | payer OTHER, SELFPAY | PROVIDERS: Admitting Provider Internal Medicine; Emergency Provider Emergency Medicine; Visit Provider Internal Medicine | DX: K85.20 Alcohol induced acute pancreatitis without necrosis or infection (principal); F10.20 Alcohol dependence, uncomplicated | CPT/HCPCS: 99223; 99232; 99239; 99499 ==

== ENCOUNTER → 2024-03-20 04:40 | Outpatient (BNV) | payer OTHER, SELFPAY | PROVIDERS: Admitting Provider Internal Medicine; Emergency Provider Emergency Medicine; Visit Provider Internal Medicine | DX: Z78.9 Other specified health status (principal); K85.20 Alcohol induced acute pancreatitis without necrosis or infection; R10.13 Epigastric pain; K86.89 Other specified diseases of pancreas | CPT/HCPCS: 99223 ==

== ENCOUNTER 2025-09-07 15:10 | Emergency (ER) | payer OTHER, SELFPAY ==
[2025-09-07 15:17] VITALS: BP 160/100; PULSE 124; O2SAT 97
[2025-09-07 15:22] VITALS: BP 119/95; PULSE 108; RESP 18; TEMP 36.9; O2SAT 98; BMI 26.9
--- NOTE | 2025-09-07 16:10 | ED.GENADULT ---
HPI - General Adult General Chief complaint: General Medical Stated complaint: DISLONGED G-TUBE, PAIN Time Seen by Provider: 09/07/25 16:09 Source: patient Mode of arrival: ambulatory Limitations: no limitations History of Present Illness ED Provider: Dr. Pinto HPI narrative: 50-year-old female presented hospital today for evaluation of G-tube dislodgement. Patient stated 2 2 months ago she was acutely and critically ill. She had a G-tube in place. Patient was in respiratory failure due to swelling in her body. Patient was unsure of exactly what had happened. She does have history of stomach cancer where she had her stomach removed. Patient stated that she has been tolerating p.o. intake without any issues. She has not been using a G-tube in quite some time. She does not want to G-tube to be replaced. She was actually scheduled for removal in December with the surgical team at [facility]. Related Data Home Medications ?Medication ?Instructions ?Recorded ?Confirmed buprenorphine 12 mg-naloxone 3 mg 2 film sublingual DAILY 03/17/24 03/20/24 sublingual film (Suboxone) omeprazole 20 mg capsule,delayed 20 mg PO DAILY@0630 03/17/24 03/20/24 release Previous Rx's ?Medication ?Instructions ?Recorded folic acid 1 mg tablet 1 mg PO DAILY #30 tabs 03/19/24 thiamine HCl (vitamin B1) 100 mg 100 mg PO DAILY #30 tabs 03/19/24 tablet acetaminophen 325 mg tablet 975 mg (3 x 325 mg) PO TID #20 tabs 03/22/24 amlodipine 2.5 mg tablet 2.5 mg PO DAILY #90 tabs 03/22/24 clonidine HCl 0.1 mg tablet 0.1 mg PO TID #180 tabs 03/22/24 omeprazole 20 mg capsule,delayed 20 mg PO DAILY #30 caps 03/22/24 release oxycodone 5 mg tablet 5 mg PO BID PRN pain #10 tabs 03/22/24 potassium chloride 10 mEq 10 meq PO DAILY #5 caps 03/22/24 capsule,extended release cephalexin 500 mg capsule 500 mg PO Q8H 7 days #21 caps 09/07/25 Allergies Allergy/AdvReac Type Severity Reaction Status Date / Time ibuprofen (From Motrin) Allergy Unknown HIVES Verified 09/07/25 15:23 morphine Allergy Unknown Verified 09/07/25 15:23 tramadol (Tramadol) AdvReac Unknown NAUSEA Verified 09/07/25 15:23 Review of Systems Review of Systems: Pertinent review of systems as mentioned in [facility]. All other system otherwise negative. 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 Shelia-Gee tear FH: cholecystectomy Surgical History History of biopsy Social History Social History Household Members: Family and Children Housing: Apartment Alcohol intake: former Patient Tobacco Use Status: Current everyday Tobacco user Tobacco use type: Cigarette Cigarette Packs Per Day: 1 Cigarettes Per Day: 13 Smoked in Last 30 Days: Yes Use of substances other than those prescribed or required for medical reasons: No Advance Directives: No Advance Directives Information Provided: Yes service: No Physical Exam ED Exam Exam: General: Pleasant, no distress, interacting appropriately Head: Normacephalic, atraumatic Gastrointestinal: Soft, non distended, G-tube site appreciate on exam. There was some erythema around the insertion site and drainage. Neurological: Awake and alert, no facial droop noted Skin: Warm and dry Psychiatric: Appropriate mood and thoughts Vital Signs: Vital Signs - 24 hr 09/07/25 15:22 Temperature 98.4 F Pulse Rate 108 H Respiratory Rate 18 Blood Pressure 119/95 H Pulse Oximetry 98 Oxygen Delivery Method Room Air BMI result Body Mass Index 26.9 Medical Decision Making Medical Decision Making [facility] Narrative: 50 year old female presented hospital today for G-tube dislodgement. Patient does not want her G-tube to be replaced at this time. She has been tolerating p.o. intake. We will plan to have the patient follow up with the Surgical Clinic at [facility]. Discussed with her to call the clinic to let them know the G-tube is out and follow up for the wound healing. Patient agrees and understands this plan all questions were addressed. Keflex will be prescribed for skin cellulitis coverage. Differential Diagnosis Differential Diagnoses: The differential diagnosis associated with the presentation includes G-tube dislodgement, cellulitis Prescription Management I considered prescription management with: Antibiotic Discharge Plan Discharge Clinical Impression: Dislodged gastrostomy tube Patient Disposition: Home, Self-Care Additional Instructions: Keep the wound clean and dry. Follow up with the surgical clinic for the wound healing. Prescriptions: New cephalexin 500 mg capsule 500 mg PO Q8H 7 Days Qty: 21 0RF No Action omeprazole 20 mg Capsule,Delayed Release(Dr/Ec) 20 mg PO DAILY@0630 buprenorphine-naloxone [Suboxone] 12-3 mg film 2 film sublingual DAILY thiamine HCl (vitamin B1) 100 mg tablet 100 mg PO DAILY Qty: 30 0RF folic acid 1 mg tablet 1 mg PO DAILY Qty: 30 0RF clonidine HCl 0.1 mg Tablet 0.1 mg PO TID Qty: 180 0RF Protocol: Hold for SBP< HOLD for SBP < : 90 acetaminophen 325 mg Tablet 975 mg PO TID Qty: 20 0RF amlodipine 2.5 mg Tablet 2.5 mg PO DAILY Qty: 90 0RF Protocol: Hold for SBP< HOLD for SBP < : 90 omeprazole 20 mg Capsule,Delayed Release(Dr/Ec) 20 mg PO DAILY Qty: 30 0RF oxycodone 5 mg tablet 5 mg PO BID PRN (Reason: pain) Qty: 10 0RF Rx Instructions: Partial Fill upon patient request. potassium chloride 10 mEq capsule, extended release 10 meq PO DAILY Qty: 5 0RF Print Language: [place]ican
[2025-09-07 16:48] VITALS: BP 119/95; PULSE 108; RESP 18; TEMP 36.9; O2SAT 98
--- OUTSIDE RECORDS SUMMARY | 2025-09-07 21:51 | XMS_ITS | Clinical Summary ---
Author Organization [facility] Address [address] [place] [address] Care Team Providers Care Director [employer] Name Role Phone Jamal Rogers MD Primary Care Provider [phone] Allergies Active Allergy Reactions Criticality Noted Date Comments Tramadol 10/11/2020 Medications Medication Sig Dispensed Refills Start Date End Date Status SUBOXONE 12-3 MG FILM DISSOLVE 2 FILMS UNDER THE TONGUE ONCE A DAY 0 10/02/2020 Active ibuprofen (ADVIL,MOTRIN) 800 MG tablet TAKE 1 TABLET BY MOUTH TWICE A DAY NEEDED DISCOMFORT WITH FOOD 0 09/04/2020 Active LORazepam (ATIVAN) 1 MG tablet 0 10/09/2020 Active omeprazole (PriLOSEC) 20 MG capsule 0 10/09/2020 Active ondansetron (ZOFRAN) 4 MG tablet 0 10/09/2020 Active sucralfate (CARAFATE) 1 g tablet Take 1 g by mouth 2 (two) times a day. 0 09/25/2020 Active acetaminophen (TYLENOL) 500 MG tablet Take 1 tablet (500 mg total) by mouth every 6 (six) hours as needed. 90 tablet 0 10/25/2020 Active oxyCODONE HCl (ROXICODONE) 10 MG TABS Take 1 tablet (10 mg total) by mouth every 6 (six) hours as needed for pain. 90 tablet 0 10/25/2020 Active OXYCONTIN 20 MG T12A controlled release tablet Take 1 tablet (20 mg total) by mouth every 12 (twelve) hours. 60 tablet 0 10/25/2020 Active Active Problems Problem Noted Date Diagnosed Date Acute gastric ulcer with hemorrhage 10/11/2020 Weight loss 10/11/2020 Chronic abdominal pain 06/08/2020 Overview: Overview: [facility]: 07/11/20: Unremarkable abdominal ultrasound and abdominal pelvic CT Family History Medical History Relation Name Comments Cancer Cousin Cancer Maternal Aunt 1 Cancer Maternal Aunt 2 Cancer Maternal Grandfather Relation Name Status Comments Cousin Maternal Aunt 1 CDH 1 gene m utation - stomach cancer Maternal Aunt 2 Maternal Grandfather Social History Tobacco Use Types Packs/Day Years Used Date Smoking Tobacco: Every Day Smokeless Tobacco: Never Alcohol Use Standard Drinks/Week Comments No 0 (1 standard drink = 0.6 oz pur e alcohol) Sex and Gender Information Value Date Recorded Sex Assigned at Not on file Gender Identity Not on file Sexual Orientation Not on file Job Start Date Occupation Industry Not on file Not on file Not on file Last Filed Vital Signs Vital Sign Reading Time Taken Comments Blood Pressure 125/84 10/11/2020 3:03 PM EST Pulse 106 10/11/2020 3:03 PM EST Temperature 37.2 C (99 F) 10/11/2020 3:03 PM EST Respiratory Rate - - Oxygen Saturation - - Inhaled Oxygen Concentration - - Weight 75.8 kg (167 lb) 10/11/2020 3:03 PM EST Height 154.9 cm (5' 1 ) 10/11/2020 3:03 PM EST Body Mass Index 31.55 10/11/2020 3:03 PM EST Plan of Treatment Health Maintenance Due Date Last Done Comments Hepatitis B Vaccines (1 of 3 - 3-dose series) 1977 Hepatitis C Screening 1977 COVID-19 Vaccine (#1) 1977 Pneumococcal Vaccine (1 of 2 - PCV) 1983 Depression Screening 1989 Preventative Health Evaluation 1995 Tobacco Cessation Counseling 1995 DTap / Tdap / Td (1 - Tdap) 02/25/1996 Cervical Cancer Screening (P ap Smear) 1998 Colon Cancer Screening (Colonoscopy) 2022 Influenza Vaccine (#1) 2025 RSV Ped < 20 months Aged Out No longe r eligible based on patient's age to complete this topic Care Teams Director [employer] Relationship Specialty Start Date End Date Jamal Rogers MD PCP - General Internal Medicine 10/10/20
--- OUTSIDE RECORDS SUMMARY | 2025-09-07 21:51 | XMS_ITS | Clinical Summary ---
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 LINE BLOOD GAS Routine 4:38 AM EDT POCT GLUCOSE BLOOD Routine 06/17/2025 11 :52 PM EDT POCT GLUCOSE BLOOD Routine 06/17/2025 5: 52 PM EDT POCT GLUCOSE BLOOD Routine 06/17/2025 11 :41 AM EDT BASIC METABOLIC PANEL Routine 06/17/2025 11:40 AM EDT VENTILATOR, ADULT Routine 06/17/2025 8:0 2 AM EDT POCT GLUCOSE BLOOD Routine 06/17/2025 6: 37 AM EDT XR CHEST 1 VIEW Routine 06/17/2025 5:25 AM EDT ARTERIAL BLOOD GAS Routine 06/17/2025 4: 04 AM EDT CBC WITH AUTO DIFFERENTIAL Routine 06/17/2025 12:39 AM EDT COMPREHENSIVE METABOLIC PANEL Routine 06/17/2025 12:39 AM EDT PHOSPHORUS Routine 06/17/2025 12:39 AM EDT MAGNESIUM Routine 06/17/2025 12:39 AM EDT CALCIUM, IONIZED Routine 06/17/2025 12:3 9 AM EDT CBC AND DIFFERENTIAL Routine 06/17/2025 12:39 AM EDT LACTATE Routine 06/17/2025 12:39 AM EDT POCT GLUCOSE BLOOD Routine 06/17/2025 12 :35 AM EDT CALCIUM, IONIZED Routine 06/16/2025 11:4 2 PM EDT VENTILATOR, ADULT Routine 06/16/2025 8:0 0 PM EDT POCT GLUCOSE BLOOD Routine 06/16/2025 5: 52 PM EDT PHOSPHORUS Routine 06/16/2025 3:44 PM EDT MAGNESIUM Routine 06/16/2025 3:44 PM EDT CALCIUM, IONIZED Routine 06/16/2025 3:44 PM EDT BASIC METABOLIC PANEL Routine 06/16/2025 3:44 PM EDT POCT GLUCOSE BLOOD Routine 06/16/2025 11 :54 AM EDT VENTILATOR, ADULT Routine 06/16/2025 8:0 2 AM EDT XR CHEST 1 VIEW Routine 06/16/2025 5:45 AM EDT IRON AND TIBC Add-On 06/16/2025 4:07 AM EDT CBC WITH AUTO DIFFERENTIAL Routine 06/16/2025 4:07 AM EDT CBC AND DIFFERENTIAL Routine 06/16/2025 4:07 AM EDT PHOSPHORUS Routine 06/16/2025 4:07 AM EDT MAGNESIUM Routine 06/16/2025 4:07 AM EDT CALCIUM, IONIZED Routine 06/16/2025 4:07 AM EDT BASIC METABOLIC PANEL Routine 06/16/2025 4:07 AM EDT POCT GLUCOSE BLOOD Routine 06/15/2025 11 :08 PM EDT VENTILATOR, ADULT Routine 06/15/2025 8:0 0 PM EDT POCT GLUCOSE BLOOD Routine 06/15/2025 4: 57 PM EDT PHOSPHORUS Routine 06/15/2025 4:16 PM EDT MAGNESIUM Routine 06/15/2025 4:16 PM EDT CALCIUM, IONIZED Routine 06/15/2025 4:16 PM EDT BASIC METABOLIC PANEL Routine 06/15/2025 4:16 PM EDT IR REPLACE G-TUBE PERC W FLUORO Routine 06/15/2025 2:12 PM EDT POCT GLUCOSE BLOOD Routine 06/15/2025 11 :28 AM EDT VENTILATOR, ADULT Routine 06/15/2025 8:0 2 AM EDT POCT GLUCOSE BLOOD Routine 06/15/2025 5: 34 AM EDT CBC WITH AUTO DIFFERENTIAL Routine 06/15/2025 3:59 AM EDT CBC AND DIFFERENTIAL Routine 06/15/2025 3:59 AM EDT PHOSPHORUS Routine 06/15/2025 3:59 AM EDT MAGNESIUM Routine 06/15/2025 3:59 AM EDT CALCIUM, IONIZED Routine 06/15/2025 3:59 AM EDT BASIC METABOLIC PANEL Routine 06/15/2025 3:59 AM EDT POCT GLUCOSE BLOOD Routine 06/14/2025 11 :12 PM EDT VENTILATOR, ADULT Routine 06/14/2025 8:0 0 PM EDT PHOSPHORUS Routine 06/14/2025 5:29 PM EDT MAGNESIUM Routine 06/14/2025 5:29 PM EDT CALCIUM, IONIZED Routine 06/14/2025 5:29 PM EDT BASIC METABOLIC PANEL Routine 06/14/2025 5:29 PM EDT POCT GLUCOSE BLOOD Routine 06/14/2025 5: 26 PM EDT PHOSPHORUS Routine 06/14/2025 3:54 PM EDT MAGNESIUM Routine 06/14/2025 3:54 PM EDT CALCIUM, IONIZED Routine 06/14/2025 3:5 4 PM EDT BASIC METABOLIC PANEL Routine 06/14/2025 3:54 PM EDT POCT GLUCOSE BLOOD Routine 06/14/2025 12 :13 PM EDT VENTILATOR, ADULT Routine 06/14/2025 8:0 2 AM EDT POCT GLUCOSE BLOOD Routine 06/14/2025 6: 03 AM EDT CBC WITH AUTO DIFFERENTIAL Routine 06/14/2025 5:06 AM EDT TRIGLYCERIDES Routine 06/14/2025 5:06 AM EDT PROCALCITONIN Routine 06/14/2025 5:06 AM EDT COMPREHENSIVE METABOLIC PANEL Routine 06/14/2025 5:06 AM EDT PHOSPHORUS Routine 06/14/2025 5:06 AM EDT MAGNESIUM Routine 06/14/2025 5:06 AM EDT CALCIUM, IONIZED Routine 06/14/2025 5:06 AM EDT CBC AND DIFFERENTIAL Routine 06/14/2025 5:06 AM EDT LACTATE Routine 06/14/2025 4:56 AM EDT XR CHEST 1 VIEW Routine 06/14/2025 4:55 AM EDT VENOUS BLOOD GAS Routine 06/14/2025 3:56 AM EDT POCT GLUCOSE BLOOD Routine 06/13/2025 11 :20 PM EDT POCT GLUCOSE BLOOD Routine 06/13/2025 9: 41 PM EDT VENTILATOR, ADULT Routine 06/13/2025 8:0 0 PM EDT POCT GLUCOSE BLOOD Routine 06/13/2025 5: 06 PM EDT POCT GLUCOSE BLOOD Routine 06/13/2025 11 :03 AM EDT CBC WITH AUTO DIFFERENTIAL Routine 06/13/2025 5:06 AM EDT CBC AND DIFFERENTIAL Routine 06/13/2025 5:06 AM EDT CALCIUM, IONIZED Routine 06/13/2025 5:06 AM EDT BASIC METABOLIC PANEL Routine 06/13/2025 5:06 AM EDT PHOSPHORUS Routine 06/13/2025 5:06 AM EDT MAGNESIUM Routine 06/13/2025 5:06 AM EDT AMMONIA Routine 06/13/2025 5:06 AM EDT HEPATIC FUNCTION PANEL Routine 5:06 AM EDT VANCOMYCIN, TROUGH Timed 06/13/2025 5: 06 AM EDT CENTRAL LINE BLOOD GAS Routine 5:06 AM EDT POCT GLUCOSE BLOOD Routine 06/12/2025 11 :52 PM EDT VENTILATOR, ADULT Routine 06/12/2025 8:0 0 PM EDT POCT GLUCOSE BLOOD Routine 06/12/2025 5: 22 PM EDT POCT GLUCOSE BLOOD Routine 06/12/2025 11 :46 AM EDT XR CHEST 1 VIEW Routine 06/12/2025 5:22 AM EDT CBC WITH AUTO DIFFERENTIAL Routine 06/12/2025 4:35 AM EDT VENOUS BLOOD GAS STAT 06/12/2025 4:35 AM EDT CBC AND DIFFERENTIAL Routine 06/12/2025 4:35 AM EDT AMMONIA Routine 06/12/2025 4:35 AM EDT PROTHROMBIN TIME WITH INR Routine 06/12/2025 4:35 AM EDT PROCALCITONIN Routine 06/12/2025 4:35 AM EDT HEPATIC FUNCTION PANEL Routine 4:35 AM EDT PHOSPHORUS Routine 06/12/2025 4:35 AM EDT MAGNESIUM Routine 06/12/2025 4:35 AM EDT CALCIUM, IONIZED Routine 06/12/2025 4:35 AM EDT BASIC METABOLIC PANEL Routine 06/12/2025 4:35 AM EDT POCT GLUCOSE BLOOD Routine 06/11/2025 11 :28 PM EDT VENTILATOR, ADULT Routine 06/11/2025 8:0 0 PM EDT VENTILATOR, ADULT Routine 06/11/2025 5:4 9 PM EDT VENTILATOR, ADULT Routine 06/11/2025 5:4 9 PM EDT POCT GLUCOSE BLOOD Routine 06/11/2025 5: 43 PM EDT POCT GLUCOSE BLOOD Routine 06/11/2025 12 :57 PM EDT VANCOMYCIN, TROUGH Timed 06/11/2025 4: 47 AM EDT CBC WITH AUTO DIFFERENTIAL Routine 06/11/2025 4:47 AM EDT CBC AND DIFFERENTIAL Routine 06/11/2025 4:47 AM EDT AMMONIA Routine 06/11/2025 4:47 AM EDT PROCALCITONIN Routine 06/11/2025 4:47 AM EDT PHOSPHORUS Routine 06/11/2025 4:47 AM EDT MAGNESIUM Routine 06/11/2025 4:47 AM EDT CALCIUM, IONIZED Routine 06/11/2025 4:47 AM EDT BASIC METABOLIC PANEL Routine 06/11/2025 4:47 AM EDT ARTERIAL BLOOD GAS Routine 06/11/2025 4: 22 AM EDT POCT GLUCOSE BLOOD Routine 06/10/2025 11 :19 PM EDT XR CHEST 1 VIEW STAT 06/10/2025 10:01 PM EDT POCT GLUCOSE BLOOD Routine 06/10/2025 5: 12 PM EDT XR ABDOMEN 1 VIEW Routine 06/10/2025 3:2 6 PM EDT IR PARACENTESIS W IMAGE GUIDANCE Routine 06/10/2025 3:22 PM EDT IR INSERT DUOD/J-TUBE PERC W FLUORO Routine 06/10/2025 3:16 PM EDT POCT GLUCOSE BLOOD Routine 06/10/2025 1: 27 PM EDT COMPLETE BLOOD COUNT Routine 06/10/2025 12:05 PM EDT POCT GLUCOSE BLOOD Routine 06/10/2025 11 :10 AM EDT TRANSFUSE RED BLOOD CELLS STAT 06/10/2025 9:36 AM EDT VENTILATOR, ADULT Routine 06/10/2025 8:0 2 AM EDT ACTIVATED PARTIAL THROMBOPLASTIN TIME Routine 06/10/2025 7:43 AM EDT PROTHROMBIN TIME WITH INR Routine 06/10/2025 7:43 AM EDT TYPE AND SCREEN Routine 06/10/2025 6:04 AM EDT PREPARE RBC STAT 06/10/2025 5:42 AM EDT XR CHEST 1 VIEW Routine 06/10/2025 5:25 AM EDT PROCALCITONIN Add-On 06/10/2025 4:45 AM EDT SST - GOLD Routine 06/10/2025 4:45 AM EDT EXTRA TUBES Routine 06/10/2025 4:45 AM EDT CBC WITH AUTO DIFFERENTIAL Routine 06/10/2025 4:45 AM EDT VENOUS BLOOD GAS Routine 06/10/2025 4:45 AM EDT AMMONIA Routine 06/10/2025 4:45 AM EDT COMPREHENSIVE METABOLIC PANEL Routine 06/10/2025 4:45 AM EDT PHOSPHORUS Routine 06/10/2025 4:45 AM EDT MAGNESIUM Routine 06/10/2025 4:45 AM EDT CALCIUM, IONIZED Routine 06/10/2025 4:45 AM EDT CBC AND DIFFERENTIAL Routine 06/10/2025 4:45 AM EDT LACTATE Routine 06/10/2025 4:45 AM EDT POCT GLUCOSE BLOOD Routine 06/09/2025 11 :56 PM EDT VENTILATOR, ADULT Routine 06/09/2025 8:0 0 PM EDT TRIGLYCERIDES Timed 06/09/2025 7:52 PM EDT POCT GLUCOSE BLOOD Routine 06/09/2025 3: 51 PM EDT VENOUS BLOOD GAS Routine 06/09/2025 3:46 PM EDT POCT GLUCOSE BLOOD Routine 06/09/2025 11 :04 AM EDT AMMONIA Routine 06/09/2025 10:55 AM EDT VENTILATOR, ADULT Routine 06/09/2025 10: 09 AM EDT VENTILATOR, ADULT Routine 06/09/2025 10: 09 AM EDT VENOUS BLOOD GAS Routine 06/09/2025 8:52 AM EDT VENTILATOR, ADULT Routine 06/09/2025 7:0 4 AM EDT XR CHEST 1 VIEW Routine 06/09/2025 5:58 AM EDT CBC WITH AUTO DIFFERENTIAL Routine 06/09/2025 3:49 AM EDT CBC AND DIFFERENTIAL Routine 06/09/2025 3:49 AM EDT CALCIUM, IONIZED Routine 06/09/2025 3:49 AM EDT PHOSPHORUS Routine 06/09/2025 3:49 AM EDT MAGNESIUM Routine 06/09/2025 3:49 AM EDT BASIC METABOLIC PANEL Routine 06/09/2025 3:49 AM EDT POCT GLUCOSE BLOOD Routine 06/08/2025 11 :46 PM EDT POCT GLUCOSE BLOOD Routine 06/08/2025 4: 06 PM EDT POCT GLUCOSE BLOOD Routine 06/08/2025 12 :26 PM EDT XR CHEST 1 VIEW Routine 06/08/2025 5:20 AM EDT VANCOMYCIN, RANDOM Routine 06/08/2025 4: 58 AM EDT CBC WITH AUTO DIFFERENTIAL Routine 06/08/2025 4:58 AM EDT AMMONIA Routine 06/08/2025 4:58 AM EDT CBC AND DIFFERENTIAL Routine 06/08/2025 4:58 AM EDT LACTATE Routine 06/08/2025 4:58 AM EDT HEPATIC FUNCTION PANEL Routine 4:58 AM EDT CALCIUM, IONIZED Routine 06/08/2025 4:58 AM EDT PHOSPHORUS Routine 06/08/2025 4:58 AM EDT MAGNESIUM Routine 06/08/2025 4:58 AM EDT BASIC METABOLIC PANEL Routine 06/08/2025 4:58 AM EDT ARTERIAL BLOOD GAS Routine 06/08/2025 3: 55 AM EDT POCT GLUCOSE BLOOD Routine 06/07/2025 11 :35 PM EDT TRIGLYCERIDES Timed 06/07/2025 8:03 PM EDT VENTILATOR, ADULT Routine 06/07/2025 8:0 0 PM EDT INSERT PICC LINE Routine 06/07/2025 8:00 PM EDT POCT GLUCOSE BLOOD Routine 06/07/2025 5: 14 PM EDT POCT GLUCOSE BLOOD Routine 06/07/2025 11 :17 AM EDT VENTILATOR, ADULT Routine 06/07/2025 8:0 3 AM EDT XR ABDOMEN 1 VIEW Routine 06/07/2025 5:5 4 AM EDT XR CHEST 1 VIEW Routine 06/07/2025 5:45 AM EDT CBC WITH AUTO DIFFERENTIAL Routine 06/07/2025 4:21 AM EDT CBC AND DIFFERENTIAL Routine 06/07/2025 4:21 AM EDT AMMONIA Routine 06/07/2025 4:21 AM EDT PROTHROMBIN TIME WITH INR Routine 06/07/2025 4:21 AM EDT PROCALCITONIN Routine 06/07/2025 4:21 AM EDT HEPATIC FUNCTION PANEL Routine 4:21 AM EDT PHOSPHORUS Routine 06/07/2025 4:21 AM EDT MAGNESIUM Routine 06/07/2025 4:21 AM EDT CALCIUM, IONIZED Routine 06/07/2025 4:21 AM EDT BASIC METABOLIC PANEL Routine 06/07/2025 4:21 AM EDT HEPATITIS PANEL, ACUTE WITH REFLEX TO CONFIRMATION Add-On 06/06/2025 4:30 AM EDT HEMOGLOBIN A1C Add-On 04/05/2025 5:07 PM EDT HM DEPRESSION SCREENING Routine 08/31/2024 HM HPV Routine 08/25/2015 from Last 3 Months or Most Recently Relevant to Health Maintenance Results * POCT Glucose, blood (07/08/2025 11:04 AM EDT) Only the most recent of109 resultswithin the time period is included. [facility] Glucose POCT 93 70 - 100 mg/dL 07/08/2025 11:04 AM EDT [facility] Blood Capillary blood specimen / Unknown 07/08/2025 11:04 AM EDT 07/08/2025 11:06 AM EDT Isaiah Mora MD LAB POINT O F CARE TEST DOCKED DEVICE UNSOLICITED RESULTS Final Result [facility] [address] [place] [address], [place] [phone] * (ABNORMAL) Complete blood count (07/07/2025 6:32 AM EDT) Only the most recent of4 resultswithin the time period is included. Pathologist [facility] WBC 5.2 4.8 - 10.8 K/mcL LAB HEMETOLOGY METHOD 07/07/2025 7:30 AM EDT [facility] RBC 2.90(L) 3.80 - 4.80 M/mcL LAB HEMETOLOGY METHOD 07/07/2025 7:30 AM [facility] Hemoglobin 9.2(L) 11.5 - 16.0 g/dL LAB HEMETOLOGY METHOD 07/07/2025 7:30 AM [facility] Hematocrit 30.0(L) 35.0 - 47.0 % LAB HEMETOLOGY METHOD 07/07/2025 7:30 AM [facility] MCV 104.2(H) 79.0 - 98.0 FL LAB HEMETOLOGY METHOD 07/07/2025 7:30 AM [facility] MCH 31.9 27.0 - 32.0 pcg LAB HEMETOLOGY METHOD 07/07/2025 7:30 AM [facility] MCHC 30.7(L) 32.0 - 37.0 g/dL LAB HEMETOLOGY METHOD 07/07/2025 7:30 AM [facility] RDW 16.6(H) 11.0 - 15.0 % LAB HEMETOLOGY METHOD 07/07/2025 7:30 AM [facility] Platelets 141 130 - 400 K/mcL LAB HEMETOLOGY METHOD 07/07/2025 7:30 AM [facility] MPV 10.9 7.0 - 11.0 FL LAB HEMETOLOGY METHOD 07/07/2025 7:30 AM [facility] NRBC 0.0 <1.0 % LAB HEMETOLOGY METHOD 07/07/2025 7:30 AM [facility] NRBC Absolute 0.00 <0.10 K/mcL LAB HEMETOLOGY METHOD 07/07/2025 7:30 AM [facility] Blood Venous blood specimen / Unknown Venipuncture / Unknown 07/07/2025 6:32 AM EDT 07/07/2025 7:17 AM EDT us Isaiah Mora MD LAB BLOOD ORDERABLE S Final Result [facility] [address] [place] [address], [place] [phone] * Phosphorus (07/07/2025 6:32 AM EDT) Only the most recent of34 resultswithin the time period is included. Phosphorus 3.6 2.5 - 4.5 mg/dL LAB CHEMISTRY METHOD 07/07/2025 8:11 AM EDT [facility] Blood Venous blood specimen / Unknown Venipuncture / Unknown 07/07/2025 6:32 AM EDT 07/07/2025 7:16 AM EDT us Isaiah Mora MD LAB BLOOD ORDERABLE S Final Result Performing Organization Address City/[facility]/ZIP Co de Phone Number [facility] [address] [place] [address], [place] [phone] * (ABNORMAL) Magnesium (07/07/2025 6:32 AM EDT) Only the most recent of36 resultswithin the time period is included. Magnesium 1.8(L) 1.9 - 2.6 mg/dL LAB CHEMISTRY METHOD 07/07/2025 8:11 AM EDT [facility] Blood Venous blood specimen / Unknown Venipuncture / Unknown 07/07/2025 6:32 AM EDT 07/07/2025 7:16 AM EDT us Isaiah Mora MD LAB BLOOD ORDERABLE S Final Result Performing Organization Address City/[facility]/ZIP Co de Phone Number [facility] [address] [place] [address], [place] [phone] * (ABNORMAL) Basic metabolic panel (07/07/2025 6:32 AM EDT) Only the most recent of29 resultswithin the time period is included. Sodium 137 133 - 145 mmol/L LAB CHEMISTRY METHOD 07/07/2025 8:15 AM [facility] Potassium 3.3(L) 3.5 - 5.5 mmol/L LAB CHEMISTRY METHOD 07/07/2025 8:15 AM [facility] Chloride 97 96 - 110 mmol/L LAB CHEMISTRY METHOD 07/07/2025 8:15 AM [facility] CO2 38(H) 21 - 32 mmol/L LAB CHEMISTRY METHOD 07/07/2025 8:15 AM [facility] Anion Gap 2(L) 3 - 11 LAB CHEMISTRY METHOD 07/07/2025 8:15 AM [facility] Glucose 200(H) 70 - 100 mg/dL LAB CHEMISTRY METHOD 07/07/2025 8:15 AM [facility] BUN 7 5 - 25 mg/dL LAB CHEMISTRY METHOD 07/07/2025 8:15 AM [facility] Creatinine 0.47(L) 0.50 - 1.10 mg/dL LAB CHEMISTRY METHOD 07/07/2025 8:15 AM [facility] eGFR 118 >=60 mL/min/1. 73m2 LAB CHEMISTRY METHOD 07/07/2025 8:15 AM [facility] Comment:Calculation based on the Chronic Kidney Disease Epidemiology Collaboration (CKD-EPI) equation refit without adjustment for race. BUN/Creatinine Ratio 14.9 LAB CHEMISTRY METHOD 07/07/2025 8:15 AM [facility] Calcium 8.5 8.5 - 10.5 mg/dL LAB CHEMISTRY METHOD 07/07/2025 8:15 AM [facility] Blood Venous blood specimen / Unknown Venipuncture / Unknown 07/07/2025 6:32 AM EDT 07/07/2025 7:16 AM EDT Isaiah Mora MD LAB BLOOD ORDERABLE S Final Result [facility] [address] [place] [address], * XR Chest 1 View (07/07/2025 5:33 AM EDT) Only the most recent of15 resultswithin the time period is included. Anatomical Region Laterality Modality Body Radiographic Kathia ging 07/07/2025 8:58 AM EDT Impressions 07/07/2025 9:00 AM EDT Improved left retrocardiac bronchitis versus pneumonia since 06/29/2025. The lungs otherwise remain clear. Code 83701 -------- FINAL REPORT -------- Dictated By: Himanshu Gomes Dictated Date: 07/07/2025 08:58 ET Assigned Physician: Himanshu Gomes Reviewed and Electronically Signed By: Himanshu Gomes Signed Date: 07/07/2025 09:00 ET Workstation ID: [id number] Transcribed By: Self Edit Transcribed Date: 07/07/2025 08:58 ET Narrative 07/07/2025 9:00 AM EDT HISTORY: The patient is a 50-year-old female with dyspnea. FINDINGS: Semierect AP radiograph of the chest again demonstrates a tracheostomy tube in good position, unchanged since the prior study performed 06/29/2025. A right arm PICC line is again seen with the tip in the lower superior vena cava. Again seen are degenerative changes of the thoracic spine. The cardiac and mediastinal contours are within normal limits. The left retrocardiac infiltrate with peribronchial thickening, consistent with bronchitis versus pneumonia, has improved since the prior study. The right lung remains clear. Procedure Note Himanshu Gomes MD - 07/07/2025 HISTORY: The patient is a 50-year-old female with dyspnea. FINDINGS: Semierect AP radiograph of the chest again demonstrates atracheostomy tube in good position, unchanged since the prior studyperformed 06/29/2025. A right arm PICC line is again seen with the tip inthe lower superior vena cava. Again seen are degenerative changes of thethoracic spine. The cardiac and mediastinal contours are within normallimits. The left retrocardiac infiltrate with peribronchial thickening,consistent with bronchitis versus pneumonia, has improved since the priorstudy. The right lung remains clear. IMPRESSION: Improved left retrocardiac bronchitis versus pneumonia since 06/29/2025.The lungs otherwise remain clear. Code 06501 -------- FINAL REPORT -------- Dictated By: Himanshu Gomes Dictated Date: 07/07/2025 08:58 ET Assigned Physician: Himanshu Gomes Reviewed and Electronically Signed By: Himanshu Gomes Signed Date: 07/07/2025 09:00 ET Workstation ID: [id number] Transcribed By: Self Edit Transcribed Date: 07/07/2025 08:58 ET Carley Coto MD IMG XR PROCEDURES Final Result * (ABNORMAL) CBC auto differential (07/06/2025 5:19 AM EDT) Only the most recent of29 resultswithin the time period is included. WBC 6.2 4.8 - 10.8 K/mcL LAB [facility]OLOG[facility] RBC 2.80(L) 3.80 - 4.80 M/mcL LAB HEMETOLOGY METHOD [facility]/06[facility]25 [facility] Hemoglobin 9.2(L) 11.5 - 16.0 g/dL LAB HEMETOLOGY METHOD 07/06/2025 7:41 AM [facility] Hematocrit 29.7(L) 35.0 - 47.0 % LAB HEMETOLOGY METHOD 07/06/2025 7:41 AM [facility] MCV 104.6(H) 79.0 - 98.0 FL LAB HEMETOLOGY METHOD 07/06/2025 7:41 AM [facility] MCH 32.4(H) 27.0 - 32.0 pcg LAB HEMETOLOGY METHOD 07/06/2025 7:41 AM [facility] MCHC 31.0(L) 32.0 - 37.0 g/dL LAB HEMETOLOGY METHOD 07/06/2025 7:41 AM [facility] RDW 16.5(H) 11.0 - 15.0 % LAB HEMETOLOGY METHOD 07/06/2025 7:41 AM [facility] Platelets 146 130 - 400 K/mcL LAB HEMETOLOGY METHOD 07/06/2025 7:41 AM [facility] MPV 10.8 7.0 - 11.0 FL LAB HEMETOLOGY METHOD 07/06/2025 7:41 AM [facility] NRBC 0.0 <1.0 % LAB HEMETOLOGY METHOD 07/06/2025 7:41 AM [facility] NRBC Absolute 0.00 <0.10 K/mcL LAB HEMETOLOGY METHOD 07/06/2025 7:41 AM [facility] Neutrophils Relative 60.8 % LAB HEMETOLOGY METHOD 07/06/2025 7:41 AM [facility] Lymphocytes Relative 23.9 % LAB HEMETOLOGY METHOD 07/06/2025 7:41 AM [facility] Monocytes Relative 11.4 % LAB HEMETOLOGY METHOD 07/06/2025 7:41 AM [facility] Eosinophils Relative 3.2 % LAB HEMETOLOGY METHOD 07/06/2025 7:41 AM [facility] Basophils Relative 0.5 % LAB HEMETOLOGY METHOD 07/06/2025 7:41 AM [facility] Immature Granulocytes Relative 0.2 % LAB HEMETOLOGY METHOD 07/06/2025 7:41 AM EDT [facility] Neutrophils Absolute 3.75 1.50 - 7.00 K/mcL LAB HEMETOLOGY METHOD 07/06/2025 7:41 AM EDT [facility] Lymphocytes Absolute 1.47 1.00 - 5.00 K/mcL LAB HEMETOLOGY METHOD 07/06/2025 7:41 AM EDT [facility] Monocytes Absolute 0.70 0.20 - 1.00 K/mcL LAB HEMETOLOGY METHOD 07/06/2025 7:41 AM EDT [facility] Eosinophils Absolute 0.20 0.00 - 0.50 K/mcL LAB HEMETOLOGY METHOD 07/06/2025 7:41 AM EDT [facility] Basophils Absolute 0.03 0.00 - 0.20 K/mcL LAB HEMETOLOGY METHOD 07/06/2025 7:41 AM EDT [facility] Immature Granulocytes Absolute 0.01 0.00 - 0.03 K/mcL LAB HEMETOLOGY METHOD 07/06/2025 7:41 AM EDT [facility] Blood Venous blood specimen / Unknown Venipuncture / Unknown 07/06/2025 5:19 AM EDT 07/06/2025 7:31 AM EDT Isaiah Mora MD LAB BLOOD ORDERABLE S Final Result [facility] [address] [place] [address], * (ABNORMAL) Arterial blood gas (07/04/2025 10:11 AM EDT) Only the most recent of6 resultswithin the time period is included. pH, Arterial 7.32(L) 7.35 - 7.45 pH 07/04/2025 10:26 AM EDT [facility] pCO2, Arterial 71(HH) 35 - 45 mmHg 07/04/2025 10:26 AM T [facility] pO2, Arterial 112(H) 80 - 100 mmHg 07/04/2025 10:26 AM EDT [facility] HCO3, Arterial 31.7(H) 22.0 - 26.0 mmol/L 07/04/2025 10:26 AM [facility] O2 Sat, Arterial 99.0(H) 95.0 - 98.0 % 07/04/2025 10:26 AM EDT [facility] Base Excess, Arterial 8.7(H) -2.0 - 2.0 mmol/L [facility]rick Test Pass Pass, Unresponsi ve, Line 07/04[facility]2025 10[facility] FIO2 30.00 07/04/2025 10:26 AM EDT [facility] Comment:3 LPM Blood Arterial blood specimen / Unknown Arterial Puncture / Unknown 07/04/2025 10:11 AM EDT 07/04/2025 10:18 AM EDT us Honey Simon MD LAB BLOOD ORDERABLES Final Resul t [facility] [address] [place] [address], * (ABNORMAL) Central line blood gas (07/04/2025 5:24 AM EDT) Only the most recent of7 resultswithin the time period is included. pH Central Line 7.22(L) 7.32 - 7.43 07/04/2025 5:36 AM EDT [facility] pCO2 Central Line 92(HH) 40 - 60 mmHg 07/04/2025 5:36 AM [facility] pO2 Central Line 59(H) 30 - 55 mmHg 07/04/2025 5:36 AM EDT [facility] HCO3 Central Line 31(H) 22 - 26 mmol/L 07/04/2025 5:36 AM EDT [facility] O2 Saturation, Central Line 90 % 07/04/2025 5:36 AM EDT [facility] Base Excess, Central Line 8(H) -2 - 2 mmol/L 07/04/2025 5:36 AM EDT [facility] Blood Blood sample taken from central line / Unknown Existing Catheter / Unknown 07/04/2025 5:24 AM EDT 07/04/2025 5:28 AM EDT us Janki Davey MD LAB BLOOD ORDERABLES Final Re sult Performing Organization Address City/[facility]/ZIP Co de Phone Number [facility] [address] [place] [address], [place] [phone] * Calcium, ionized (07/04/2025 5:24 AM EDT) Only the most recent of30 resultswithin the time period is included. Calcium Ionized 4.52 4.50 - 5.30 mg/dL 07/04/2025 5:32 AM EDT [facility] Blood Venous blood specimen / Unknown Venipuncture / Unknown 07/04/2025 5:24 AM EDT 07/04/2025 5:29 AM EDT us Janki Davey MD LAB BLOOD ORDERABLES Final Re sult Performing Organization Address City/[facility]/ZIP Co de Phone Number [facility] [address] [place] [address], [place] [phone] * (ABNORMAL) Venous blood gas (07/03/2025 8:43 AM EDT) Only the most recent of11 resultswithin the time period is included. pH, [place] 7.34 7.32 - 7.42 pH 07/03/2025 8:52 AM EDT [facility] pCO2, [place] 68(HH) 41 - 51 mmHg 07/03/2025 8:52 AM EDT [facility] pO2, [place] 35 25 - 40 mmHg 07/03/2025 8:52 AM EDT [facility] HCO3, Venous 31.2(H) 22.0 - 26.0 mmol/L 07/03/2025 8:52 AM T [facility] O2 Sat, [place] 57.7 % 07/03/2025 8:52 AM EDT [facility] Base Excess, [place] 9.1(H) -2.0 - 2.0 mmol/L 07/03/2025 8:52 AM T [facility] Blood Venous blood specimen / Unknown Venipuncture / Unknown 07/03/2025 8:43 AM EDT 07/03/2025 8:48 AM EDT us Janki Davey MD LAB BLOOD ORDERABLES Final Re sult [facility] [address] [place] [address], * (ABNORMAL) Comprehensive metabolic panel (06/30/2025 4:18 AM EDT) Only the most recent of9 resultswithin the time period is included. [facility] Sodium 137 133 - 145 mmol/L LAB CHEMISTRY METHOD 06/30/2025 5:17 AM EDT [facility] Potassium 3.6 3.5 - 5.5 mmol/L LAB CHEMISTRY METHOD 06/30/2025 5:17 AM EDT [facility] Chloride 97 96 - 110 mmol/L LAB CHEMISTRY METHOD 06/30/2025 5:17 AM T [facility] CO2 38(H) 21 - 32 mmol/L LAB CHEMISTRY METHOD 06/30/2025 5:17 AM [facility] Anion Gap 2(L) 3 - 11 LAB CHEMISTRY METHOD 06/30/2025 5:17 AM [facility] Glucose 171(H) 70 - 100 mg/dL LAB CHEMISTRY METHOD 06/30/2025 5:17 AM [facility] BUN 7 5 - 25 mg/dL LAB CHEMISTRY METHOD 06/30/2025 5:17 AM [facility] Creatinine 0.41(L) 0.50 - 1.10 mg/dL LAB CHEMISTRY METHOD 06/30/2025 5:17 AM [facility] eGFR 122 >=60 mL/min/1. 73m2 LAB CHEMISTRY METHOD 06/30/2025 5:17 AM [facility] Comment:Calculation based on the Chronic Kidney Disease Epidemiology Collaboration (CKD-EPI) equation refit without adjustment for race. BUN/Creatinine Ratio 17.1 LAB CHEMISTRY METHOD 06/30/2025 5:17 AM [facility] Calcium 8.6 8.5 - 10.5 mg/dL LAB CHEMISTRY METHOD 06/30/2025 5:17 AM [facility] AST (SGOT) 54(H) 10 - 42 unit/L LAB CHEMISTRY METHOD 06/30/2025 5:17 AM [facility] ALT (SGPT) 24 10 - 60 unit/L LAB CHEMISTRY METHOD 06/30/2025 5:17 AM [facility] Alkaline Phosphatase 91 42 - 121 unit/L LAB CHEMISTRY METHOD 06/30/2025 5:17 AM [facility] Total Protein 7.5 6.0 - 8.0 g/dL LAB CHEMISTRY METHOD 06/30/2025 5:17 AM [facility] Albumin 3.2 3.2 - 5.0 g/dL LAB CHEMISTRY METHOD 06/30/2025 5:17 AM EDT [facility] Total Bilirubin 1.0 0.0 - 1.4 mg/dL LAB CHEMISTRY METHOD 06/30/2025 5:17 AM EDT [facility] Blood Blood sample taken from central line / Unknown Venipuncture / Unknown 06/30/2025 4:18 AM EDT 06/30/2025 4:39 AM EDT us Chelsi Landaverde MD LAB BLOOD ORDERABLES Final Re sult [facility] [address] [place] [address], * Procalcitonin (06/29/2025 4:57 AM EDT) Only the most recent of6 resultswithin the time period is included. Procalcitonin 0.13 <=0.16 ng/mL LAB CHEMISTRY METHOD 06/29/2025 7:51 AM EDT [facility] Blood Blood sample taken from central line / Unknown Venipuncture / Unknown 06/29/2025 4:57 AM EDT 06/29/2025 5:26 AM EDT Narrative [facility] - 06/29/2025 7:51 AM EDT Procalcitonin > 2.00 ng/ml: Procalcitonin Levels above 2.00 ng/ml, on the first day of ICU admission represent a high risk for progression to severe sepsis and/or septic shock. Procalcitonin < 0.50 ng/ml: Procalcitonin levels below 0.50 ng/ml on the first day of ICU admission represent a low risk for progression to severe sepsis and/or septic shock. Concentrations <0.5 ng/mL do not exclude an infection, on account of local ized infections (without systemic signs) which can be associated with such low concentrations, or a systemic infection in its initial stages (<6 hours). Furthermore, increased procalcitonin can occur without infection. PCT concentrations between 0.5 and 2.0 ng/mL should be interpreted taking into account the patient's history. It is recommended to retest PCT within 6-24 hours if any concentrations <2.0 ng/mL are obtained. us Dwain MURO LAB BLOOD ORDERABLES Final Resul t Performing Organization Address City/[facility]/ZIP Co de Phone Number [facility] [address] [place] [address], [place] [phone] * Lactate (06/29/2025 4:57 AM EDT) Only the most recent of8 resultswithin the time period is included. Lactate 0.9 0.4 - 2.0 mmol/L LAB CHEMISTRY METHOD 06/29/2025 5:51 AM EDT [facility] Blood Blood sample taken from central line / Unknown Venipuncture / Unknown 06/29/2025 4:57 AM EDT 06/29/2025 5:25 AM EDT Chelsi Landaverde MD LAB BLOOD ORDERABLES Final Re sult Performing Organization Address [facility]/ZIP Co de Phone Number [facility] [address] [place] [address], [place] [phone] * (ABNORMAL) Ammonia (06/29/2025 4:57 AM EDT) Only the most recent of10 resultswithin the time period is included. Ammonia 45(H) 11 - 35 mcmol/L LAB CHEMISTRY METHOD 06/29/2025 5:48 AM EDT [facility] Blood Blood sample taken from central line / Unknown Venipuncture / Unknown 06/29/2025 4:57 AM EDT 06/29/2025 5:48 AM EDT us Dwain MURO LAB BLOOD ORDERABLES Final Resul t Performing Organization Address City/[facility]/ZIP Co de Phone Number [facility] [address] [place] [address], [place] [phone] * Transfuse RBC (06/19/2025 2:32 PM EDT) Only the most recent of2 resultswithin the time period is included. us Dwain MURO BLOOD TRANSFUSION ORDERABLES Fin al Result * Type and screen (06/19/2025 7:45 AM EDT) Only the most recent of2 resultswithin the time period is included. ABO Group A 06/19/2025 9:00 AM EDT [facility] Rh Type Positive 06/19/2025 9:00 AM EDT [facility] Antibody Screen Negative 06/19/2025 9:00 AM EDT [facility] Blood Venous blood specimen / Unknown Venipuncture / Unknown 06/19/2025 7:45 AM EDT 06/19/2025 8:05 AM EDT us Dwain MURO LAB BLOOD BANK TEST ORDERABLES F inal Result [facility] [address] [place] [address], * Prepare RBC: 1 Units (06/19/2025 7:15 AM EDT) Only the most recent of2 resultswithin the time period is included. Product Code [id number] 06/19/2025 12:13 PM EDT [facility] Unit Number [id number] 06/19/20 12:13 PM EDT [facility] Crossmatch Compatible 06/19/2025 9:02 AM EDT [facility] Dispense Status Transfused 06/19/2025 12:13 PM EDT [facility] Unit ABO Rh APOS 06/19/2025 12:13 PM EDT [facility] Unit Expiration Date Time [id number] 06/19/2025 12:13 PM EDT [facility] Unit Blood Type 6200 06/19/2025 12:13 PM EDT [facility] Blood Venous blood specimen / Unknown 06/19/2025 7:15 AM EDT 06/19/2025 8:05 AM EDT Dwain MURO BLOOD BANK PRODUCT ORDERABLES Fi nal Result Performing Organization Address [facility]/ZIP Co de Phone Number [facility] [address] [place] [address], [place] [phone] * (ABNORMAL) Iron and TIBC (06/16/2025 4:07 AM EDT) Iron 35(L) 40 - 150 mcg/dL LAB CHEMISTRY METHOD 06/16/2025 8:31 AM EDT [facility] TIBC 176(L) 250 - 450 mcg/dL LAB CHEMISTRY METHOD 06/16/2025 8:31 AM EDT [facility] Iron Saturation 20 15 - 50 % LAB CHEMISTRY METHOD 06/16/2025 8:31 AM EDT [facility] Blood Venous blood specimen / Unknown Venipuncture / Unknown 06/16/2025 4:07 AM EDT 06/16/2025 4:12 AM EDT Chelsi Landaverde MD LAB BLOOD ORDERABLES Final Re sult Performing Organization Address [facility]/ZIP Co de Phone Number [facility] [address] [place] [address], [place] [phone] * IR Replace G-Tube Perc w Fluoro (06/15/2025 2:12 PM EDT) Anatomical Region Laterality Modality N/A Interventional R adiology 06/15/2025 2:18 PM EDT Impressions 06/15/2025 2:23 PM EDT 16-Surinamese gastrostomy tube placed at the junction of the gastrojejunostomy. -------- FINAL REPORT -------- Dictated By: Saurabh Garduno Dictated Date: 06/15/2025 14:18 ET Assigned Physician: Saurabh Garduno Reviewed and Electronically Signed By: Saurabh Garduno Signed Date: 06/15/2025 14:23 ET Workstation ID: [id number] Transcribed By: Self Edit Transcribed Date: 06/15/2025 14:18 ET Narrative 06/15/2025 2:23 PM EDT Feeding tube exchange INDICATION: Patient underwent a 16-Surinamese catheter for enteric access. This catheter was positioned at the junction of the gastrojejunostomy, for anatomical reasons this was the safest option. A formal feeding tube has been requested with the retention balloon. Informed consent was obtained from the patient's mother prior to the procedure. The patient was placed on the imaging table in supine position. Moderate sedation: Under direct physician supervision, the patient was moderately sedated with intravenous FENTANYL and VERSED for a total of 15 minutes. An independent interventional radiology nurse observer trained in conscious sedation provided continuous physiologic monitoring of the patient during the entirety of the procedure through recovery. A timeout was performed. The patient's abdomen and catheter were prepped and draped in the usual sterile fashion. Injection of contrast through the preexisting catheter demonstrates opacification of only the stomach no jejunal loops were identified. Despite additional insufflation of air and additional contrast the jejunal loops were not identified. The decision was made therefore to simply place a gastrostomy tube. 0.035 wire was advanced through the catheter and coiled within the stomach. The pre-existing catheter was then removed. 16-Surinamese dilator was utilized through the skin. A 16-Surinamese gastrostomy tube was then advanced over the wire easily in position within the stomach. The retention balloon was instilled with 5 mL of STERILE WATER and a scant amount of contrast and withdrawn anteriorly with a Jeffrey disc advanced to the skin level. Administration of contrast to the tube demonstrates appropriate positioning likely right at the gastrojejunostomy but with opacification only of the stomach. The catheter was then flushed with saline. The catheter is available for immediate use. Procedure Note Saurabh Garduno MD - 06/15/2025 Feeding tube exchange INDICATION: Patient underwent a 16-Surinamese catheter for enteric access.This catheter was positioned at the junction of the gastrojejunostomy, foranatomical reasons this was the safest option. A formal feeding tube hasbeen requested with the retention balloon. Informed consent was obtained from the patient's mother prior to theprocedure. The patient was placed on the imaging table in supine position. Moderatesedation: Under direct physician supervision, the patient was moderatelysedated with intravenous FENTANYL and VERSED for a total of 15 minutes. Anindependent interventional radiology nurse observer trained in conscioussedation provided continuous physiologic monitoring of the patient duringthe entirety of the procedure through recovery. A timeout was performed. The patient's abdomen and catheter were preppedand draped in the usual sterile fashion. Injection of contrast throughthe preexisting catheter demonstrates opacification of only the stomach nojejunal loops were identified. Despite additional insufflation of air andadditional contrast the jejunal loops were not identified. The decisionwas made therefore to simply place a gastrostomy tube. 0.035 wire was advanced through the catheter and coiled within thestomach. The pre-existing catheter was then removed. 16-Surinamese dilatorwas utilized through the skin. A 16-Surinamese gastrostomy tube was thenadvanced over the wire easily in position within the stomach. Theretention balloon was instilled with 5 mL of STERILE WATER and a scantamount of contrast and withdrawn anteriorly with a Jeffrey disc advanced tothe skin level. Administration of contrast to the tube demonstratesappropriate positioning likely right at the gastrojejunostomy but withopacification only of the stomach. The catheter was then flushed withsaline. The catheter is available for immediate use. IMPRESSION: 16-Surinamese gastrostomy tube placed at the junction of thegastrojejunostomy. -------- FINAL REPORT -------- Dictated By: Saurabh Garduno Dictated Date: 06/15/2025 14:18 ET Assigned Physician: Saurabh Garduno Reviewed and Electronically Signed By: Saurabh Garduno Signed Date: 06/15/2025 14:23 ET Workstation ID: [id number] Transcribed By: Self Edit Transcribed Date: 06/15/2025 14:18 ET us Saurabh Garduno MD IMG IR PROCEDURES Final Result * Triglycerides (06/14/2025 5:06 AM EDT) Only the most recent of3 resultswithin the time period is included. [facility] Triglycerides 118 0 - 150 mg/dL LAB CHEMISTRY METHOD 06/14/2025 5:41 AM EDT [facility] Blood Venous blood specimen / Unknown Venipuncture / Unknown 06/14/2025 5:06 AM EDT 06/14/2025 5:09 AM EDT us Chelsi Landaverde MD LAB BLOOD ORDERABLES Final Re sult Performing Organization Address [facility]/ZIP Co de Phone Number [facility] [address] [place] [address], [place] [phone] * Vancomycin, trough (06/13/2025 5:06 AM EDT) Only the most recent of2 resultswithin the time period is included. [facility] Vancomycin Trough 14.4 10.0 - 20.0 mcg/mL LAB CHEMISTRY METHOD 06/13/2025 5:35 AM EDT [facility] Blood Blood sample taken from central line / Unknown Venipuncture / Unknown 06/13/2025 5:06 AM EDT 06/13/2025 5:11 AM EDT us Chelsi Landaverde MD LAB BLOOD ORDERABLES Final Re sult Performing Organization Address City/[facility]/ZIP Co de Phone Number [facility] [address] [place] [address], [place] [phone] * (ABNORMAL) Hepatic function panel (06/13/2025 5:06 AM EDT) Only the most recent of4 resultswithin the time period is included. [facility] Total Protein 6.2 6.0 - 8.0 g/dL LAB CHEMISTRY METHOD 06/13/2025 5:35 AM EDT [facility] Albumin 2.7(L) 3.2 - 5.0 g/dL LAB CHEMISTRY METHOD 06/13/2025 5:35 AM EDT [facility] Total Bilirubin 1.3 0.0 - 1.4 mg/dL LAB CHEMISTRY METHOD 06/13/2025 5:35 AM EDT [facility] Bilirubin, Direct 0.7(H) 0.0 - 0.3 mg/dL LAB CHEMISTRY METHOD 06/13/2025 5:35 AM EDT [facility] Bilirubin, Indirect 0.6 0.0 - 1.1 mg/dL LAB CHEMISTRY METHOD 06/13/2025 5:35 AM [facility] ALT (SGPT) 35 10 - 60 unit/L LAB CHEMISTRY METHOD 06/13/2025 5:35 AM [facility] AST (SGOT) 58(H) 10 - 42 unit/L LAB CHEMISTRY METHOD 06/13/2025 5:35 AM T [facility] Alkaline Phosphatase 85 42 - 121 unit/L LAB CHEMISTRY METHOD 06/13/2025 5:35 AM [facility] Blood Blood sample taken from central line / Unknown Venipuncture / Unknown 06/13/2025 5:06 AM EDT 06/13/2025 5:11 AM EDT us Janki Davey MD LAB BLOOD ORDERABLES Final Re sult [facility] [address] [place] [address], * (ABNORMAL) Prothrombin time with INR (06/12/2025 4:35 AM EDT) Only the most recent of3 resultswithin the time period is included. Protime 17.4(H) 10.6 - 13.9 sec LAB COAGULATION METHOD 06/12/2025 4:50 AM EDT [facility] INR 1.4 LAB COAGULATION METHOD 06/12/2025 4:50 AM EDT [facility] Blood Venous blood specimen / Unknown Existing Catheter / Unknown 06/12/2025 4:35 AM EDT 06/12/2025 4:41 AM EDT us Shaan Hancock DO LAB BLOOD ORDERABLES Final R esult [facility] [address] [place] [address], [place] [phone] * XR Abdomen 1 View (06/10/2025 3:26 PM EDT) Only the most recent of2 resultswithin the time period is included. Anatomical Region Laterality Modality Body Radiographic Kathia ging 06/10/2025 4:37 PM EDT Impressions 06/10/2025 4:39 PM EDT FINDINGS/IMPRESSION: Pigtail catheter in the left upper quadrant with presumed recent injection of contrast confirms placement within the jejunum. Postcystectomy clips. Enteric tube remains in the stomach but the side port is at the GE junction. -------- FINAL REPORT -------- Dictated By: Jsee Sylvester Dictated Date: 06/10/2025 16:37 ET Assigned Physician: Jese Sylvester Reviewed and Electronically Signed By: Jese Sylvester Signed Date: 06/10/2025 16:39 ET Workstation ID: [id number] Transcribed By: Self Edit Transcribed Date: 06/10/2025 16:37 ET Narrative 06/10/2025 4:39 PM EDT XR ABDOMEN 1 VIEW INDICATION: OTHER j tube placement TECHNIQUE: XR ABDOMEN 1 VIEW COMPARISON: No priors available. Procedure Note Jese Sylvester MD - 06/10/2025 XR ABDOMEN 1 VIEW INDICATION: OTHER j tube placement TECHNIQUE: XR ABDOMEN 1 VIEW COMPARISON: No priors available. IMPRESSION: FINDINGS/IMPRESSION: Pigtail catheter in the left upper quadrant withpresumed recent injection of contrast confirms placement within thejejunum. Postcystectomy clips. Enteric tube remains in the stomach butthe side port is at the GE junction. -------- FINAL REPORT -------- Dictated By: Jese Sylvester Dictated Date: 06/10/2025 16:37 ET Assigned Physician: Jese Sylvester Reviewed and Electronically Signed By: Jese Sylvester Signed Date: 06/10/2025 16:39 ET Workstation ID: [id number] Transcribed By: Self Edit Transcribed Date: 06/10/2025 16:37 ET us Shaan Hancock DO IMG XR PROCEDURES Final Resu lt * IR Paracentesis w Image Guidance (06/10/2025 3:22 PM EDT) Anatomical Region Laterality Modality Body N/A Interventional R adiology 06/10/2025 3:36 PM EDT Impressions 06/10/2025 3:[address] guided paracentesis yielding 2.3 L of serous ascites. 2. Figure of 8 suture placed in the area of prior paracentesis in the left abdomen. This will be removed by the Intensive Care Unit nursing in approximately 2 days. -------- FINAL REPORT -------- Dictated By: Saurabh Garduno Dictated Date: 06/10/2025 15:36 ET Assigned Physician: Saurabh Garduno Reviewed and Electronically Signed By: Saurabh Garduno Signed Date: 06/10/2025 15:41 ET Workstation ID: [id number] Transcribed By: Self Edit Transcribed Date: 06/10/2025 15:36 ET Narrative 06/10/2025 3:41 PM EDT Paracentesis CLINICAL HISTORY: Abdominal ascites. Patient with persistent ascitic leak from prior paracentesis. Patient undergoing primary jejunostomy placement with concern for wound healing issues or dehiscence if ascites persists. UNDERLYING CONDITION: Cirrhosis ACUITY: Chronic LATERALITY: Right upper quadrant INTERVENTIONALIST: Saurabh Garduno MD PROCEDURE: Informed consent was obtained from the patient's mother prior to procedure due to the patient's and capacity. This was placed in the medical record. Initially the patient was assessed with ultrasound demonstrating a small amount of fluid. The decision was made to perform the paracentesis concurrently with the CT- guided procedure. Therefore the procedure was performed with CT. In a supine position initial imaging through the upper abdomen demonstrates small amount of perihepatic ascitic fluid. The liver appears cirrhotic. The overlying skin was demarcated. The overlying skin was then prepped and draped in the usual sterile fashion. 1% LIDOCAINE was used for local anesthesia. Utilizing CT fluoroscopy a 5-Surinamese Yueh catheter was advanced under guidance into the ascitic collection. The catheter was advanced over the needle and the needle was removed. This was then connected to a vacuum device and a total of 2300 mL of serous ascites was evacuated. After removal of the catheter, hemostasis was achieved. Dermabond was utilized for skin closure. Concurrently an ostomy bag was removed from the left flank where a prior paracentesis have been performed where there was continuous leakage. The overlying skin was prepped and draped in usual sterile fashion. 1% LIDOCAINE was used for local anesthesia. A xefyyp-ki-ubclm suture was placed utilizing 2-0 Ethilon with the cessation of ascitic dripping. A sterile dressing was applied. In communication with the Intensive Care Unit nursing teen, they will remove the suture and a day or 2. Procedure Note Saurabh Garduno MD - 06/10/2025 Paracentesis CLINICAL HISTORY: Abdominal ascites. Patient with persistent ascitic leakfrom prior paracentesis. Patient undergoing primary jejunostomy placementwith concern for wound healing issues or dehiscence if ascites persists. UNDERLYING CONDITION: Cirrhosis ACUITY: Chronic LATERALITY: Right upper quadrant INTERVENTIONALIST: Saurabh Garduno MD PROCEDURE: Informed consent was obtained from the patient's mother priorto procedure due to the patient's and capacity. This was placed in themedical record. Initially the patient was assessed with ultrasound demonstrating a smallamount of fluid. The decision was made to perform the paracentesisconcurrently with the CT-guided procedure. Therefore the procedure wasperformed with CT. In a supine position initial imaging through the upper abdomendemonstrates small amount of perihepatic ascitic fluid. The liver appearscirrhotic. The overlying skin was demarcated. The overlying skin wasthen prepped and draped in the usual sterile fashion. 1% LIDOCAINE wasused for local anesthesia. Utilizing CT fluoroscopy a 5-Surinamese Yuehcatheter was advanced under guidance into the ascitic collection. Thecatheter was advanced over the needle and the needle was removed. Thiswas then connected to a vacuum device and a total of 2300 mL of serousascites was evacuated. After removal of the catheter, hemostasis was achieved. Dermabond wasutilized for skin closure. Concurrently an ostomy bag was removed from the left flank where a priorparacentesis have been performed where there was continuous leakage. Theoverlying skin was prepped and draped in usual sterile fashion. 1%LIDOCAINE was used for local anesthesia. A acajbf-et-gwuee suture wasplaced utilizing 2-0 Ethilon with the cessation of ascitic dripping. Asterile dressing was applied. In communication with the Intensive CareUnit nursing teen, they will remove the suture and a day or 2. IMPRESSION: 1. CT guided paracentesis yielding 2.3 L of serous ascites. 2. Figure of 8 suture placed in the area of prior paracentesis in theleft abdomen. This will be removed by the Intensive Care Unit nursing inapproximately 2 days. -------- FINAL REPORT -------- Dictated By: Saurabh Garduno Dictated Date: 06/10/2025 15:36 ET Assigned Physician: Saurabh Garduno Reviewed and Electronically Signed By: Saurabh Garduno Signed Date: 06/10/2025 15:41 ET Workstation ID: [id number] Transcribed By: Self Edit Transcribed Date: 06/10/2025 15:36 ET Saurabh Garduno MD IMG IR PROCEDURES Final Result * IR Insert Duod/J-Tube Perc w Fluoro (06/10/2025 3:16 PM EDT) Anatomical Region Laterality Modality Interventional R adiology 06/10/2025 3:44 PM EDT Impressions 06/10/2025 3:55 PM EDT Impression: 1. 16-Surinamese pigtail catheter placed into the proximal efferent limb of a Lauren-en-Y gastric bypass. 2. Recommend STERILE WATER administration of 50 mL per hour for the next 12 hours through the catheter. If there are no peritoneal symptoms, resumption of enteric feeding can be performed with continued abdominal examinations. 3. If desired, a formal gastric or jejunostomy tube can be placed next week in the interventional suite. -------- FINAL REPORT -------- Dictated By: Saurabh Garduno Dictated Date: 06/10/2025 15:44 ET Assigned Physician: Saurabh Garduno Reviewed and Electronically Signed By: Saurabh Garduno Signed Date: 06/10/2025 15:55 ET Workstation ID: [id number] Transcribed By: Self Edit Transcribed Date: 06/10/2025 15:44 ET Narrative 06/10/2025 3:55 PM EDT Gastric/jejunostomy tube placement INDICATION: Patient has a complex medical history and is extremely ill currently. The patient has an underlying history of cirrhosis and possible blood loss anemia. The patient underwent tracheostomy earlier today. The patient is in need of long-term enteral feeds but has previously undergone a Lauren-en-Y gastric bypass. Given the patient's current multiple morbidities, she is a higher than average surgical risk and a percutaneous intervention has been requested by the surgical team. The plan and the approach was discussed in detail with the surgical team and the receiver and we are in agreement in the past to move forward. Comparison: Prior imaging was reviewed including a CT abdomen and pelvis dated 06/05/2025. PROCEDURE: Informed consent was obtained from the patient's mother, her healthcare proxy. The risks, benefits and alternatives were discussed in great detail and the patient advocate which is progressed to move forward. The decision was made to perform a multiphase staged approach to placement of an enteral catheter. In the 1st stage we will insert a pigtail catheter into the remnant stomach and/or jejunum. Following this, a formal gastric or jejunostomy tube can be placed. The patient was brought to CT scan of placed in a supine position. Immediately prior to this a paracentesis was performed to reduce the likelihood of wound dehiscence. We are targeting the area of probable it fixed proximal a fair jejunum seen anterior to the stomach. The remainder of the stomach is inaccessible due to overlying ribs, liver, and bowel. The overlying skin was prepped and draped in the usual and sterile fashion. 1% LIDOCAINE was utilized for local anesthesia. A small stab incision was made with a #11 blade scalpel. Under continuous CT fluoroscopic guidance an 18-gauge needle was advanced into the proximal jejunum which lies immediately underneath the skin. Aspiration of air bubbles via a saline syringe confirms positioning within the viscus. Carefully a 0.035 Amplatz wire was coiled within this structure and additional CT imaging confirms coiling within the targeted bowel loop. Very carefully utilizing pin and pull technique, the skin was serially dilated to 16-Surinamese. Subsequently a 16-Surinamese catheter was carefully inserted over the wire and coiled within this loop of bowel. Additional imaging confirms positioning. Subsequently contrast was administered through the catheter demonstrating the absence of extravasation or leak and opacification of both the stomach and jejunal loops. The catheter was secured to the skin with a 2-0 Ethilon suture and a stay fix device. Sterile dressing was applied. Patient tolerated the procedure well with no immediate complications. A delayed abdominal x-ray was obtained further demonstrating opacification of bowel loops consistent with efferent loop positioning. As expected there is contrast within the dependent portion of the remnant stomach given the puncture site in close approximation to the anastomosis. Procedure Note Saurabh Garduno MD - 06/10/2025 Gastric/jejunostomy tube placement INDICATION: Patient has a complex medical history and is extremely illcurrently. The patient has an underlying history of cirrhosis andpossible blood loss anemia. The patient underwent tracheostomy earliertoday. The patient is in need of long-term enteral feeds but haspreviously undergone a Lauren-en-Y gastric bypass. Given the patient'scurrent multiple morbidities, she is a higher than average surgical riskand a percutaneous intervention has been requested by the surgical team.The plan and the approach was discussed in detail with the surgical teamand the receiver and we are in agreement in the past to move forward. Comparison: Prior imaging was reviewed including a CT abdomen and pelvisdated 06/05/2025. PROCEDURE: Informed consent was obtained from the patient's mother, herhealthcare proxy. The risks, benefits and alternatives were discussed ingreat detail and the patient advocate which is progressed to moveforward. The decision was made to perform a multiphase staged approach to placementof an enteral catheter. In the 1st stage we will insert a pigtailcatheter into the remnant stomach and/or jejunum. Following this, aformal gastric or jejunostomy tube can be placed. The patient was brought to CT scan of placed in a supine position.Immediately prior to this a paracentesis was performed to reduce thelikelihood of wound dehiscence. We are targeting the area of probable itfixed proximal a fair jejunum seen anterior to the stomach. The remainderof the stomach is inaccessible due to overlying ribs, liver, and bowel. The overlying skin was prepped and draped in the usual and sterilefashion. 1% LIDOCAINE was utilized for local anesthesia. A small stabincision was made with a #11 blade scalpel. Under continuous CTfluoroscopic guidance an 18-gauge needle was advanced into the proximaljejunum which lies immediately underneath the skin. Aspiration of airbubbles via a saline syringe confirms positioning within the viscus.Carefully a 0.035 Amplatz wire was coiled within this structure andadditional CT imaging confirms coiling within the targeted bowel loop.Very carefully utilizing pin and pull technique, the skin was seriallydilated to 16-Surinamese. Subsequently a 16-Surinamese catheter was carefullyinserted over the wire and coiled within this loop of bowel. Additionalimaging confirms positioning. Subsequently contrast was administeredthrough the catheter demonstrating the absence of extravasation or leakand opacification of both the stomach and jejunal loops. The catheter wassecured to the skin with a 2-0 Ethilon suture and a stay fix device. Steriledressing was applied. Patient tolerated the procedure well with noimmediate complications. A delayed abdominal x-ray was obtained further demonstratingopacification of bowel loops consistent with efferent loop positioning.As expected there is contrast within the dependent portion of the remnantstomach given the puncture site in close approximation to theanastomosis. IMPRESSION: Impression: 1. 16-Surinamese pigtail catheter placed into the proximal efferent limb of aRoux-en-Y gastric bypass. 2. Recommend STERILE WATER administration of 50 mL per hour for the next12 hours through the catheter. If there are no peritoneal symptoms,resumption of enteric feeding can be performed with continued abdominalexaminations. 3. If desired, a formal gastric or jejunostomy tube can be placed nextweek in the interventional suite. -------- FINAL REPORT -------- Dictated By: Saurabh Garduno Dictated Date: 06/10/2025 15:44 ET Assigned Physician: Saurabh Garduno Reviewed and Electronically Signed By: Saurabh Garduno Signed Date: 06/10/2025 15:55 ET Workstation ID: [id number] Transcribed By: Self Edit Transcribed Date: 06/10/2025 15:44 ET us Saurabh Garduno MD IMG IR PROCEDURES Final Result * (ABNORMAL) Activated partial thromboplastin time (06/10/2025 7:43 AM EDT) Pathologist [facility] aPTT 42.1(H) 24.1 - 39.3 sec LAB COAGULATION METHOD 06/10/2025 8:01 AM EDT [facility] Blood Venous blood specimen / Unknown Venipuncture / Unknown 06/10/2025 7:43 AM EDT 06/10/2025 7:51 AM EDT Shaan Hancock DO LAB BLOOD ORDERABLES Final R esult [facility] [address] [place] [address], [place] [phone] * SST tube (06/10/2025 4:45 AM EDT) [facility] Extra Tube Hold for add-ons. 06/10/2025 6:01 AM EDT [facility] Comment:Auto resulted. Blood Venous blood specimen / Unknown 06/10/2025 4:45 AM EDT 06/10/2025 4:53 AM EDT Chelsi Landaverde MD LAB BLOOD ORDERABLES Final Re sult [facility] [address] [place] [address], [place] [phone] * Vancomycin random (06/08/2025 4:58 AM EDT) Pathologist [facility] Vancomycin Rm 14.5 mcg/mL LAB CHEMISTRY METHOD 06/08/2025 5:53 AM EDT [facility] Blood Blood sample taken from central line / Unknown Existing Catheter / Unknown 06/08/2025 4:58 AM EDT 06/08/2025 5:09 AM EDT Shaan Hancock DO LAB BLOOD ORDERABLES Final R esult [facility] [address] [place] [address], [place] [phone] * Insert PICC line (06/07/2025 8:00 PM EDT) Merna Murphy RN - 06/07/2025 8:00 PM EDT Merna Ceron RN 06/07/2025 8:57 PM PICC Line Insertion Procedure Note Procedure: Insertion of 5F Triple lumen Bard Provena PowerPICC Lot: [id number] Exp: 2026-02-14 Indications: ICU level of care receiving TPN Procedure Details: Informed consent was obtained for the procedure from provider. Risks of thrombus and infection known. Pre-procedure checklist completed at bedside. Maximum sterile technique was used including antiseptics, cap, gloves, gown, hand hygiene, mask, and sheet. US guidance utilized, vein easily accessed and catheter advanced smoothly upon first attempt. Two wires intact and discarded. 1% Lidocaine 2 ml sc administered. 5F PICC inserted to the Right Basilic vein per hospital protocol. Flushes smoothly with good blood return. Findings: Catheter cut at 37 cm and inserted to 37 cm with 0 cm exposed. Mid upper arm circumference is 28 cm. There were no changes to vital signs. Catheter was flushed with 10 cc NS and sterile CVC dressing with Statseal disc applied. Patient tolerated procedure well. Recommendations: 3CG confirmation obtained: Tip at cavoatrial junction/May use line PICC Brochure left at bedside. Chelsi Landaverde MD IV THERAPY ORDERABLES Final R esult * (ABNORMAL) Hepatitis panel, acute with reflex to confirmation (06/06/2025 4:30 AM EDT) Hepatitis B Surface Ag Positive(A) Negative LAB CHEMISTRY METHOD 06/06/2025 11:23 AM EDT [facility] Hepatitis A Antibody IgM Negative Negative LAB CHEMISTRY METHOD 06/06/2025 11:23 AM EDT [facility] Hep B Core IgM Negative Negative LAB CHEMISTRY METHOD 06/06/2025 11:23 AM EDT [facility] Hepatitis C Antibody Negative Negative LAB CHEMISTRY METHOD 06/06/2025 11:23 AM EDT [facility] Blood Venous blood specimen / Unknown Existing Catheter / Unknown 06/06/2025 4:30 AM EDT 06/06/2025 4:38 AM EDT Shaan Hancock DO LAB BLOOD ORDERABLES Final R esult Performing Organization Address City/[facility]/ZIP Co de Phone Number [facility] [address] [place] [address], [place] [phone] * Hemoglobin A1c (04/05/2025 5:07 PM EDT) [facility] Hemoglobin A1C 6.2 <6.5 % LAB CHEMISTRY METHOD 04/08/2025 10:32 PM EDT [facility] Mean Bld Glu Estim. 131 mg/dL LAB CHEMISTRY METHOD 04/08/2025 10:32 PM EDT [facility] Blood Venous blood specimen / Unknown Venipuncture / Unknown 04/05/2025 5:07 PM EDT 04/05/2025 5:33 PM EDT Annette Clay PA LAB BLOOD ORDERABLES Fi nal Result Performing Organization Address [facility]/ZIP Co de Phone Number [facility] [address] [place] [address], [place] [phone] * Depression Screening (08/31/2024) Pathologist [facility] Depression Screening Abstracted Historical Provider HEALTH MAINTENANCE Final Result * Cervical Cancer Screening: HPV (08/25/2015) Pathologist [facility] Cervical Cancer Screening: HPV Negative, Abstracted Historical Provider HEALTH MAINTENANCE Final Result from Last 3 Months or Most Recently Relevant to Health Maintenance Insurance [facility] [employer] Advance Directives Documents on File Type Date Recorded 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 To update the patient's code status, place a code status order. Do not modify or discontinue any currently active code status orders. * Full Code - Default Date Activated Date Inactivated Comments 05/19/2025 10:56 PM 06/15/2025 6:51 AM This is orde r is used when code status has not been discussed with the patient, or code status is otherwise unknown/unconfirmed To update the patient's code status, place a code status order. Do not modify or discontinue any currently active code status orders. * Full Code - Default Date Activated Date Inactivated Comments 04/05/2025 10:15 PM 04/06/2025 6:13 PM This is ord er is used when code status has not been discussed with the patient, or code status is otherwise unknown/unconfirmed To update the patient's code status, place a code status order. Do not modify or discontinue any currently active code status orders. Healthcare Agents on File Name Relationship Healthcare Agent Ranihi qamar Communication Katherin Cadet [facility] Health Care Agent Care Teams Affirmative Action Officer Relationship Specialty Start Date End Date Suleiman Bass MD [address] [place] [address] PCP - General Internal Medicine 02/26/25
== END 2025-09-07 16:48 | disposition home or self-care (01) ==
PROVIDERS: Emergency Provider Student in an Organized Health Care Education/Training Program; PCP Internal Medicine
DX: K94.23 Gastrostomy malfunction (principal); Z79.899 Other long term (current) drug therapy; F17.210 Nicotine dependence, cigarettes, uncomplicated
CPT/HCPCS: 99283; 99284

== ENCOUNTER 2025-10-18 08:22 | Emergency (ER) | payer OTHER, SELFPAY ==
--- NOTE | ~2025-10-18 | US_ITS ---
Ultrasound paracentesis History: Ascites. Risks and benefits and possible complications were discussed with the patient and consent form was signed. A safe pocket of ascitic fluid was identified using ultrasound guidance, and the overlying skin was marked. The abdomen prepped and draped in sterile fashion. 1% lidocaine was used as a local anesthetic. Using ultrasound guidance, a 5 fr catheter was placed into the ascitic pocket. 3.1 liters of yellow fluid was removed passively. The catheter was then removed. A few motor vehicle field representative images from before and after the examination were obtained. The procedure was performed by James Sneed NP and supervised by Jordan Abebe M.D.. US/US paracentesis abd w/image Impression: Ultrasound-guided paracentesis as described above. No immediate complications Electronically signed by: Jordan Abebe MD 10/20/2025 05:05 PM [facility]
[2025-10-18 08:35] VITALS: BP 149/74; PULSE 111; RESP 20; TEMP 36.9; O2SAT 100; BMI 27.1
--- NOTE | 2025-10-18 08:36 | ED.GENADULT ---
HPI - General Adult General Chief complaint: Abdominal Pain Stated complaint: Genital Swelling Time Seen by Provider: 10/18/25 10:59 Source: patient Mode of arrival: ambulatory Limitations: no limitations History of Present Illness ED Provider: HPI narrative: 50-year-old woman with a history of alcoholic pancreatitis and recurrent ascites, has had this drained in the past, was supposed to see scheduled GI on 12/20/2025 to have paracentesis but abdominal pain has increased and distention has not increased, no fevers or chills reported. She has had a G-tube that was removed end of August of this year. She reported some leakage around the tube and occlusive dressing was noted. Related Data Home Medications ?Medication ?Instructions ?Recorded ?Confirmed buprenorphine 12 mg-naloxone 3 mg 2 film sublingual DAILY 03/17/24 03/20/24 sublingual film (Suboxone) omeprazole 20 mg capsule,delayed 20 mg PO DAILY@0630 03/17/24 03/20/24 release Previous Rx's ?Medication ?Instructions ?Recorded folic acid 1 mg tablet 1 mg PO DAILY #30 tabs 03/19/24 thiamine HCl (vitamin B1) 100 mg 100 mg PO DAILY #30 tabs 03/19/24 tablet acetaminophen 325 mg tablet 975 mg (3 x 325 mg) PO TID #20 tabs 03/22/24 amlodipine 2.5 mg tablet 2.5 mg PO DAILY #90 tabs 03/22/24 clonidine HCl 0.1 mg tablet 0.1 mg PO TID #180 tabs 03/22/24 omeprazole 20 mg capsule,delayed 20 mg PO DAILY #30 caps 03/22/24 release oxycodone 5 mg tablet 5 mg PO BID PRN pain #10 tabs 03/22/24 potassium chloride 10 mEq 10 meq PO DAILY #5 caps 03/22/24 capsule,extended release cephalexin 500 mg capsule 500 mg PO Q8H 7 days #21 caps 09/07/25 Allergies Allergy/AdvReac Type Severity Reaction Status Date / Time ibuprofen (From Motrin) Allergy Unknown HIVES Verified 10/18/25 08:39 morphine Allergy Unknown Verified 10/18/25 08:39 tramadol (Tramadol) AdvReac Unknown NAUSEA Verified 10/18/25 08:39 Review of Systems Constitutional: Constitutional: Reports as per [facility] Past Medical History Medical History 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 Shelia-Gee tear FH: cholecystectomy Surgical History History of biopsy Social History Social History Household Members: Family and Children Housing: Apartment Alcohol intake: former Patient Tobacco Use Status: Current everyday Tobacco user Tobacco use type: Cigarette Cigarette Packs Per Day: 1 Cigarettes Per Day: 13 Advance Directives: Yes Advance Directives Information Provided: No Advance Directives on File: No Do you have a plan to hurt others: No Plan service: No Physical Exam ED Exam Exam: ?General: ??looks age appropriate ?No scleral icterus Neck: Supple, no LAD ?CV: RRR, no obvious murmurs appreciated ?Resp: ?No wheezing rales rhonchi no stridor moving air well Abd: ?Distended, bowel sounds present, minimal tenderness MSK: FROM, strength 5/5 all extremities Skin: No jaundice, some irritation from the prior G-tube insertion no drainage ?Neuro: ?Alert and oriented x3, moving upper and lower extremities symmetrically, no obvious facial asymmetry noted, cranial nerves 2-12 intact Vital Signs: Vital Signs - 24 hr 10/18/25 08:35 10/18/25 12:07 10/18/25 15:10 Temperature 98.4 F Pulse Rate 111 H 115 H 110 H Respiratory Rate 20 21 H 16 Blood Pressure 149/74 H 142/88 H 136/81 Pulse Oximetry 100 97 95 Oxygen Delivery Method Room Air Room Air Room Air BMI result Body Mass Index 27.1 Course Course Course Narrative: Rapid medical examination performed in triage by Suzanne Marino PA-C: Patient is a 50 year old assigned female at presenting to the emergency department with abdominal swelling and requesting a paracentesis to drain it. Detailed physical exam and review of systems are deferred to the primary therapist. Labs ordered. Patient placed back in the waiting room pending room availability and results. Medications Administered Discontinued Medications Generic Name Dose Route Start Last Admin Trade Name Freq PRN Reason Stop Dose Admin Diazepam 4 mg 10/18/25 11:21 10/18/25 11:35 Diazepam 2 Mg Tablet PO 10/18/25 11:22 4 mg ONCE ONE Administration Lidocaine HCl 5 ml 10/18/25 13:53 10/18/25 13:53 Lidocaine Hcl 1 % Mpf 5 Ml Vial SUBCUT 10/18/25 13:54 5 ml ONCE ONE Administration Medical Decision Making Medical Decision Making [facility] Narrative: 12:16 PM 10/18/2025 (Dr. Tony Rodriguez): Presenting with the abdominal distention supposed to have drainage on December 20 but states discomfort is getting worse no fevers reported, low suspicion for spontaneous bacterial peritonitis but clearly patient does need paracentesis we will contact IR for that and we will also make sure they smitha labs for diagnostic paracentesis as well, did not feel further imaging such as CT is indicated she has not had any obstipation to suspect SBO, no evidence for pancreatitis based on labs. Disposition to be determined 3:04 PM 10/18/2025 (Dr. Tony Rodriguez): 3.1 L removed patient feels better 3:33 PM 10/18/2025 (Dr. Tony Rodriguez): Paracentesis is not consistent with SBP, can discharge, has a Gram stain pending Differential Diagnosis Differential Diagnoses: The differential diagnosis associated with the presentation includes Admission/Observation Consideration of admission/observation: Escalation of care including admission/observation considered Consult Healthcare Provider Management of the patient was discussed with: Book Cutter (Interventional Radiology) Lab Data [facility] Lab Attestation statement: I reviewed the patient's lab results. 10/18/25 08:48 10/18/25 08:48 Labs: Lab Results 10/18/25 10/18/25 Range/Units 08:48 13:59 WBC 9.3 (4.8-10.8) X10*3/uL RBC 3.28 L (4.20-5.50) X10*6/uL Hgb 11.0 L D (12.0-16.0) g/dl Hct 33.3 L D (37.0-47.0) % MCV 101.5 H (80.0-98.0) fL MCH 33.5 H (27.0-33.0) pg MCHC 33.0 (31.0-35.0) g/dl RDW 20.6 H (11.0-16.0) % Plt Count 125 L D (160-400) X10*3/uL MPV 12.4 H (9.4-12.3) fL Immature Gran % (Auto) 0.8 H (0.0-0.4) % Neut % (Auto) 68.0 (45-73) % Lymph % (Auto) 20.3 (20-40) % Mineral % (Auto) 10.0 (2-11) % Eos % (Auto) 0.5 (0-4) % Baso % (Auto) 0.4 (0-2) % Lymph # (Auto) 1.9 (1.2-4.9) X10*3/uL Mineral # (Auto) 0.9 (0.1-1.2) X10*3/uL Eos # (Auto) 0.1 (0.0-0.4) X10*3/uL Baso # (Auto) 0.0 (0.0-0.2) X10*3/uL Abs Immat Gran (auto) 0.07 H (0.00-0.03) X10*3/uL Absolute Neuts (auto) 6.3 (2.0-8.3) x10*3/uL Absolute Nucleated RBC 0.000 (0.0-0.012) X10*3/uL Nucleated RBC % (auto) 0.0 (0.0-0.2) /100WBC PT 17.5 H (11.2-13.5) SEC INR 1.4 H (0.9-1.1) Sodium 139 (135-145) mmol/L Potassium 3.7 D (3.3-5.1) mmol/L Chloride 108 (96-108) mmol/L Carbon Dioxide 27 (22-29) mmol/L Anion Gap 8 L (12-20) BUN 6 L (9-16) mg/dL Creatinine 0.53 (0.5-1.4) mg/dL Estim Creat Clear Calc 112.1 Estimated GFR > 60 Random Glucose 114 (60-115) mg/dL Calcium 7.8 L D (8.4-10.2) mg/dL Total Bilirubin 3.2 H (0.0-1.0) mg/dL AST 101 H (5-31) U/L ALT 20 (0-31) U/L Alkaline Phosphatase 124 H (39-117) U/L Total Protein 6.8 (6.5-8.0) g/dL Albumin 2.1 L (3.5-5.0) g/dL Lipase 5 L (8-78) U/L Peritoneal WBC 0.346 X10*3/uL Peritoneal RBC < 0.002 X10*6/uL Critical Care Time Critical Care Time Critical Care Time: Yes Total Critical Care Time: 32 Attestation: Time is exclusive of separately billable procedures. Time includes: direct patient care, patient reassessment, coordination of patient care, interpretation of data (laboratory data, pulse oximetry, arterial blood gases and chest xrays), review of patient's medical records, medical consultation and documentation of patient care. Procedures excluded from critical care time: central intravenous line placement and electrocardiography. Discharge Plan Discharge Clinical Impression: Abdominal ascites, Alcoholic liver failure Patient Disposition: Home, Self-Care Additional Instructions: Please follow up with the Gastroenterology, the paracentesis sample was also sent for Gram stain and culture if it comes back positive for bacteria he will get a phone call but judging from the results right now there was no evidence that there was infection in the fluid, as far as the G-tube, covered with dry dressing and paper tape, bacitracin ointment or zinc oxide or just petroleum based ointment over the area but did not cover with occlusive dressing as it traps moisture and can cause infection, 3.1 L removed today any other issues concerns come back to the ER Prescriptions: No Action omeprazole 20 mg Capsule,Delayed Release(Dr/Ec) 20 mg PO DAILY@0630 buprenorphine-naloxone [Suboxone] 12-3 mg film 2 film sublingual DAILY thiamine HCl (vitamin B1) 100 mg tablet 100 mg PO DAILY Qty: 30 0RF folic acid 1 mg tablet 1 mg PO DAILY Qty: 30 0RF clonidine HCl 0.1 mg Tablet 0.1 mg PO TID Qty: 180 0RF Protocol: Hold for SBP< HOLD for SBP < : 90 acetaminophen 325 mg Tablet 975 mg PO TID Qty: 20 0RF amlodipine 2.5 mg Tablet 2.5 mg PO DAILY Qty: 90 0RF Protocol: Hold for SBP< HOLD for SBP < : 90 omeprazole 20 mg Capsule,Delayed Release(Dr/Ec) 20 mg PO DAILY Qty: 30 0RF oxycodone 5 mg tablet 5 mg PO BID PRN (Reason: pain) Qty: 10 0RF Rx Instructions: Partial Fill upon patient request. potassium chloride 10 mEq capsule, extended release 10 meq PO DAILY Qty: 5 0RF cephalexin 500 mg capsule 500 mg PO Q8H 7 Days Qty: 21 0RF Print Language: Kiswahili
--- OUTSIDE RECORDS SUMMARY | 2025-10-18 09:02 | XMS_ITS | Clinical Summary ---
Author Organization [facility] Address [address] [place] [address] Care Team Providers Care Pot Tender Name Role Phone Jamal Rogers MD Primary Care Provider [phone] Allergies Active Allergy Reactions Criticality Noted Date [...] 10/11/2020 Chronic abdominal pain 06/08/2020 Overview: Overview: [facility]: 07/11/20: Unremarkable abdominal ultrasound and abdominal [...] age to complete this topic Care Teams Pot Tender Relationship Specialty Start Date End Date Jamal Rogers MD PCP - General Internal Medicine 10/10/20
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
[2025-10-18 09:23] LABS: MANUAL DIFF FLAG NO
[2025-10-18 09:28] LABS: Hematocrit 33.3 % (37.0-47.0); Hemoglobin 11.0 g/dl (12.0-16.0); Imm Gran Abs Auto 0.07 X10*3/uL (0.00-0.03); Imm Gran Pct Auto 0.8 % (0.0-0.4); Lymphocytes Absolute Auto 1.9 X10*3/uL (1.2-4.9); Mean Corpuscular HGB Conc 33.0 g/dl (31.0-35.0); Mean Corpuscular Hemoglobin 33.5 pg (27.0-33.0); Mean Corpuscular Volume 101.5 fL (80.0-98.0); NRBC Abs Auto 0.000 X10*3/uL (0.0-0.012); NRBC Pct Auto 0.0 /100WBC (0.0-0.2); Platelet Count 125 X10*3/uL (160-400); Red Blood Count 3.28 X10*6/uL (4.20-5.50); White Blood Count 9.3 X10*3/uL (4.8-10.8)
[2025-10-18 09:33] LABS: INTERNATIONAL NORM RATIO 1.4 (0.9-1.1); Prothrombin Time 17.5 SEC (11.2-13.5)
[2025-10-18 10:02] LABS: Alanine Aminotransferase 20 U/L (0-31); Albumin Level 2.1 g/dL (3.5-5.0); Alkaline Phosphatase 124 U/L (39-117); Anion Gap 8 (12-20); Aspartate Amino Transferase 101 U/L (5-31); Blood Urea Nitrogen 6 mg/dL (9-16); Calcium 7.8 mg/dL (8.4-10.2); Carbon Dioxide 27 mmol/L (22-29); Chloride 108 mmol/L (96-108); Creatinine Clr Calc Pharmacy 112.1; Estimated Glomerular Filt Rate > 60; Potassium 3.7 mmol/L (3.3-5.1); Sodium 139 mmol/L (135-145); Total Protein 6.8 g/dL (6.5-8.0)
[2025-10-18 12:07] VITALS: BP 142/88; PULSE 115; RESP 21; O2SAT 97
--- NOTE | 2025-10-18 12:07 | PC.NURSE ---
Pt on full monitor St no ectopy- rate 115. BP WNL. Pt in NAD, states abd pain since assessment by provider.
[2025-10-18 13:16] LABS: Lipase 5 U/L (8-78)
[2025-10-18] MEDS: Lidocaine HCl 1 % MPF 5 ML VIAL SUBCUT (13:53)
[2025-10-18 14:37] LABS: MN% 88.4 %; PMN% 11.6 %; WBC Peritoneal Fluid 0.346 X10*3/uL
[2025-10-18 15:10] VITALS: BP 136/81; PULSE 110; RESP 16; O2SAT 95
[2025-10-18 15:30] LABS: BF Shift QC OK YES
[2025-10-18 15:31] LABS: Lymphocyte Peritoneal Fl 33 %; Monocytes Peritoneal Fl 35 %; Neutrophils Peritoneal Fluid 4 %; Other Peritioneal Fl 28 %
[2025-10-19 09:59] LABS: pH Peritoneal Fluid 7.57
[2025-10-19 10:00] LABS: Albumin Peritoneal Fluid 0.5
== END 2025-10-18 15:53 | disposition home or self-care (01) ==
PROVIDERS: Physician Assistant Medical; Emergency Provider Emergency Medicine; PCP Internal Medicine
DX: R18.8 Other ascites (principal); K70.40 Alcoholic hepatic failure without coma; F17.200 Nicotine dependence, unspecified, uncomplicated; Z71.6 Tobacco abuse counseling
CPT/HCPCS: 36415; 49083; 80053; 82042; 82150; 82945; 83615; 83690; 83986; 84157; 85025; 85610; 87070; 87073; 87205; 89051; 99284; J2003

== ENCOUNTER → 2025-10-18 11:21 | Outpatient (BNV) | payer OTHER, SELFPAY | PROVIDERS: Emergency Provider Emergency Medicine; PCP Internal Medicine | DX: R18.8 Other ascites (principal) | CPT/HCPCS: 49083 ==